=== PATIENT | female | born 1945 | race Caucasian/White ===

== ENCOUNTER 2017-12-06 17:07 | Emergency (ER) | payer MEDICARE, OTHER ==
[2017-12-06] MEDS ORDERED: ONDANSETRON HCL INJ/PF 4 MG/2 ML SDV IV ONE (18:19)
[2017-12-06] MEDS ORDERED: FENTANYL CITRATE INJ/PF 100 MCG/2 ML AMPUL IV ONE ×3 (18:20→22:43)
--- NOTE | 2017-12-06 18:20 | ER Document Report ---
ED Medical Screen (RME) - General Chief Complaint: Vomiting/Diarrhea Stated Complaint: VOMITING,DIARRHEA Time Seen by Provider: 12/06/17 18:12 Mode of Arrival: Wheelchair Information source: Patient Notes: 72-year-old female presents with complaints of nausea vomiting diarrhea over past 4 days with decreased appetite I have greeted and performed a rapid initial assessment of this patient. A comprehensive ED assessment and evaluation of the patient, analysis of test results and completion of the medical decision making process will be conducted by additional ED providers. PHYSICAL EXAMINATION: GENERAL: Well-appearing, well-nourished and in no acute distress. HEAD: Atraumatic, normocephalic. EYES: Pupils equal round extraocular movements intact, conjunctiva are normal. ENT: Nares patent NECK: Normal range of motion LUNGS: No respiratory distress Musculoskeletal: Normal range of motion NEUROLOGICAL: Normal speech, normal gait. PSYCH: Normal mood, normal affect. SKIN: Warm, Dry, normal turgor, no rashes or lesions noted. TRAVEL OUTSIDE OF THE [place] IN LAST 30 DAYS: No - Related Data Allergies/Adverse Reactions: chlordiazepoxide HCl [From Librium] Allergy (Severe, Verified 12/06/17 17:10) diazepam [From Valium] Allergy (Severe, Verified 12/06/17 17:10) manic, increased b/p NSAIDS (Non-Steroidal Anti-Inflamma [Nsaids] Allergy (Severe, Verified 12/06/17 17:10) ulcers Past Medical History - Social History Frequency of alcohol use: None Drug Abuse: None - Past Medical History Cardiac Medical History: Reports: Hx Hypercholesterolemia, Hx Hypertension Denies: Hx Coronary Artery Disease, Hx Heart Attack Pulmonary Medical History: Reports: Hx Asthma Denies: Hx Bronchitis, Hx COPD, Hx Pneumonia Neurological Medical History: Denies: Hx Cerebrovascular Accident, Hx Seizures Renal/ Medical History: Reports: Hx Kidney Stones. 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
--- NOTE | 2017-12-06 19:06 | ER Document Report ---
ED General - General Chief Complaint: Vomiting/Diarrhea Stated Complaint: VOMITING,DIARRHEA Time Seen by Provider: 12/06/17 18:12 Mode of Arrival: Wheelchair Information source: Patient, Relative Notes: 72-year-old female with a history of diverticulitis, chronic back pain, MS presents with complaint of 2 days of diarrhea and abdominal pain. Patient describes the abdominal pain as cramping, constant and diffusely located. She states that she has had multiple episodes of nonbloody diarrhea. Has had associated nausea with multiple episodes of vomiting. She denies any sick contacts, recent antibiotic use or recent travel. She does admit to prior similar symptoms. TRAVEL OUTSIDE OF THE [place] IN LAST 30 DAYS: No - HPI Onset: Yesterday Onset/Duration: Gradual Quality of pain: Cramping Severity: Moderate Pain Level: 2 Associated symptoms: Diarrhea, Nausea, Vomiting. denies: Fever Exacerbated by: Denies Relieved by: Denies Similar symptoms previously: Yes - 3 years prior to arrival Recently seen / treated by doctor: No - Related Data Allergies/Adverse Reactions: chlordiazepoxide HCl [From Librium] Allergy (Severe, Verified 12/06/17 17:10) diazepam [From Valium] Allergy (Severe, Verified 12/06/17 17:10) manic, increased b/p NSAIDS (Non-Steroidal Anti-Inflamma [Nsaids] Allergy (Severe, Verified 12/06/17 17:10) ulcers Past Medical History - General Information source: Patient - Social History Smoking Status: Former Smoker Frequency of alcohol use: None Drug Abuse: None Family History: Reviewed & Not Pertinent Patient has suicidal ideation: No Patient has homicidal ideation: No - Past Medical History Cardiac Medical History: Reports: Hx Hypercholesterolemia, Hx Hypertension Denies: Hx Coronary Artery Disease, Hx Heart Attack Pulmonary Medical History: Reports: Hx Asthma Denies: Hx Bronchitis, Hx COPD, Hx Pneumonia Neurological Medical History: Denies: Hx Cerebrovascular Accident, Hx Seizures Renal/ Medical History: Reports: Hx Kidney Stones. 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 denies: Blood streaked bowels, Black stools Physical Exam - Vital signs Vitals: Temp Pulse Resp BP Pulse Ox 98.4 F 70 16 161/89 H 97 12/06/17 17:15 12/06/17 17:15 12/06/17 17:15 12/06/17 17:15 12/06/17 17:15 - Abdominal Inspection: Normal Distension: No distension Bowel sounds: Hyperactive Tenderness: Tender. No: McBurney's point, Flores's sign - Tender to palpation in epigastric area. Organomegaly: No organomegaly Course - Re-evaluation Re-evalutation: 12/07/17 19:29 72-year-old female with history of diverticulitis presents with complaint of 2 days of abdominal pain with associated diarrhea and vomiting. Arrival vitals reviewed and within normal limits. Patient does not appear toxic or dehydrated. She does appear very uncomfortable. Patient received IV fluids, Zofran and fentanyl during her ED course. CT of the abdomen was obtained and showed no acute changes. She was offered to the patient who initially agreed but then later changed her mind. She was discharged home in stable condition with prescription for Hay and Zofran. - Vital Signs Vital signs: Temp Pulse Resp BP Pulse Ox 98.6 F 67 20 166/84 H 98 12/07/17 00:58 12/07/17 00:58 12/07/17 00:58 12/07/17 00:58 12/07/17 00:58 - Laboratory Result Diagrams: 12/06/17 19:00 12/06/17 19:00 Laboratory results interpreted by me: 12/06/17 12/06/17 19:00 19:00 WBC 10.6 H RDW 15.1 H Seg Neutrophils % 78.3 H Absolute Neutrophils 8.3 H Sodium 132.5 L Chloride 94 L Direct Bilirubin 0.5 H Discharge - Discharge Clinical Impression: Abdominal pain Qualifiers: Abdominal location: generalized Qualified Code(s): R10.84 - Generalized abdominal pain Nausea & vomiting Qualifiers: Vomiting type: unspecified Vomiting Intractability: non-intractable Qualified Code(s): R11.2 - Nausea with vomiting, unspecified Condition: Good Disposition: HOME, SELF-CARE Instructions: Abdominal Pain ([facility]), Antinausea Medication ([facility]), Vomiting ([facility]) Prescriptions: Hydrocodone/Acetaminophen [Hay 5-325 mg Tablet] 1 tab PO Q6H PRN #10 tablet PRN Reason: Ondansetron [Zofran Odt 4 mg Tablet] 1 - 2 tab PO Q4H PRN #15 tab.rapdis PRN Reason: For Nausea/Vomiting Referrals: JESSICA SINGH FNP [Primary Care Provider] - Follow up as needed
[2017-12-06] MEDS: NORMAL SALINE 1000 ML 1,000 ML IV PRN ×2 (19:11→21:38)
[2017-12-06 19:18] LABS: ABSOLUTE EOSINOPHILS # (AUTO) 0.1 10^3/uL (0.0-0.6); ABSOLUTE LYMPHOCYTES (AUTO) 1.7 10^3/uL (0.5-4.7); ABSOLUTE MONOCYTES (AUTO) 0.6 10^3/uL (0.1-1.4); ABSOLUTE NEUT (AUTO) 8.3 10^3/uL (1.7-8.2); BASOPHILS % (AUTO) 0.3 % (0-2); EOSINOPHILS % (AUTO) 0.6 % (0-6); HEMATOCRIT 44.6 % (36.0-47.0); HEMOGLOBIN 15.3 g/dL (12.0-15.5); LYMPHOCYTES % (AUTO) 15.6 % (13-45); MEAN CORPUSCULAR HGB CONC 34.3 g/dL (32.0-36.0); MEAN CORPUSCULAR VOLUME 88 fl (80-97); MONOCYTES % (AUTO) 5.2 % (3-13); PLATELET COUNT 234 10^3/uL (150-450); RED BLOOD COUNT 5.09 10^6/uL (3.72-5.28); RED CELL DISTRIBUTION WIDTH 15.1 % (11.5-14.0); SEGMENTED NEUTROPHILS % (AUTO) 78.3 % (42-78); TOTAL CELLS COUNTED % (AUTO) 100 %; WHITE BLOOD COUNT 10.6 10^3/uL (4.0-10.5)
[2017-12-06 19:25] LABS: ALANINE AMINOTRANSFERASE 34 U/L (9-52); ALKALINE PHOSPHATASE 105 U/L (38-126); ANION GAP 13 (5-19); ASPARTATE AMINO TRANSFERASE 31 U/L (14-36); BILIRUBIN,DIRECT 0.5 mg/dL (0.0-0.4); BILIRUBIN,TOTAL 0.9 mg/dL (0.2-1.3); BLOOD UREA NITROGEN 11 mg/dL (7-20); CALCIUM 9.9 mg/dL (8.4-10.2); CARBON DIOXIDE 26 mmol/L (22-30); CHLORIDE 94 mmol/L (98-107); GLUCOSE 109 mg/dL (75-110); LIPASE 153.2 U/L (23-300); POTASSIUM 3.7 mmol/L (3.6-5.0); SODIUM 132.5 mmol/L (137-145)
[2017-12-06] MEDS ORDERED: METOCLOPRAMIDE HCL INJ/PF 10 MG/2 ML SDV IV ONE (21:02)
--- NOTE | 2017-12-06 22:12 | RADIOLOGY REPORT (SQ) ---
EXAM DESCRIPTION: CT ABD/PELVIS WITH IV ORAL COMPLETED DATE/TIME: 12/06/2017 9:29 pm REASON FOR STUDY: abd pain ,hx of obstructions COMPARISON: 02/27/2016 TECHNIQUE: CT scan of the abdomen and pelvis performed using helical scanning technique with dynamic intravenous contrast injection. No oral contrast. Images reviewed with lung, soft tissue, and bone windows. Reconstructed coronal and sagittal MPR images reviewed. Delayed images for evaluation of the urinary system also acquired. All images stored on PACS. All CT scanners at this facility use dose modulation, iterative reconstruction, and/or weight based d osing when appropriate to reduce radiation dose to as low as reasonably achievable (ALARA). [facility]: Dose Right [facility]: CareDose [facility]: Dose Right [facility]: Teradose 4D [facility]: [employer] CONTRAST TYPE AND DOSE: contrast/concentration: Isovue 370.00 mg/ml; Total Contrast Delivered: 100.0 ml; Total Saline Delivered: 45.0 ml RENAL FUNCTION: GFR > 60. RADIATION DOSE: CT Rad equipment meets quality standard of care and radiation dose reduction techniq ues were employed. CTDIvol: 24.3 - 25.6 mGy. DLP: 2401 mGy-cm.. LIMITATIONS: None. FINDINGS: LOWER CHEST: No acute findings. LIVER: Normal size. No masses. No dilated ducts. SPLEEN: Normal size. No focal lesions. PANCREAS: Mild fatty replacement. No masses. Similar small calcifications and distal body duct dila tation. No adjacent inflammation or peripancreatic fluid collections. GALLBLADDER: No identified stones by CT criteria. No inflammatory changes to suggest cholecystitis. ADRENAL GLANDS: No significant masses or asymmetry. RIGHT KIDNEY AND URETER: No solid masses. No significant calcifications. No hydronephrosis or hyd roureter. LEFT KIDNEY AND URETER: No solid masses. No significant calcifications. No hydronephrosis or hydr oureter. AORTA AND VESSELS: No aneurysm. No dissection. Renal arteries, SMA, celiac without stenosis. RETROPERITONEUM: No retroperitoneal adenopathy, hemorrhage or masses. BOWEL AND PERITONEAL CAVITY: Mildly dilated proximal jejunum, similar to the previous study, nonspeci fic. No definite obstruction or transition points. Remainder of the bowel is normal caliber. No fo carmen inflammatory changes or free fluid. Diverticulosis. APPENDIX: Surgically absent. PELVIS: No mass. No free fluid. Normal bladder. ABDOMINAL WALL: No masses. No hernias. BONES: No acute findings. OTHER: No other significant finding. IMPRESSION: Mildly dilated proximal jejunum, similar to the previous study, nonspecific. No definit e obstruction or transition points. Remainder of the bowel is normal caliber. No focal inflammatory changes or free fluid. TECHNICAL DOCUMENTATION: JOB ID: [id number] Quality ID # [id number]: Final reports with documentation of one or more dose reduction techniques (e.g., Au tomated exposure control, adjustment of the mA and/or kV according to patient size, use of iterative reconstruction technique) 2010 [employer]- All Rights Reserved Reading location - IP/workstation name: [email or web address]
[2017-12-07 00:59] VITALS: BP 166/84
== END 2017-12-07 01:03 | disposition home or self-care (01) ==
LOC: ER 17:07 → UNDOADMOB 23:23 → EH 23:23 → ER 12-07 01:03
DX: R10.84 Generalized abdominal pain (principal); R11.2 Nausea with vomiting, unspecified; R19.7 Diarrhea, unspecified; R53.1 Weakness; I10 Essential (primary) hypertension; J45.909 Unspecified asthma, uncomplicated; Z87.442 Personal history of urinary calculi; Z87.19 Personal history of other diseases of the digestive system; Z87.42 Personal history of other diseases of the female genital tract; Z87.891 Personal history of nicotine dependence; Z88.8 Allergy status to other drugs, medicaments and biological substances
CPT/HCPCS: 96376; 99284; 96361; 96374; 96375; 36415; 83605; 83690; 85025; 80053; 74177; J3010; J2765; J2405; J7030

== ENCOUNTER 2018-02-15 04:38 | Inpatient (IN) | payer MEDICARE, OTHER ==
[2018-02-15] MEDS ORDERED: ONDANSETRON HCL INJ/PF 4 MG/2 ML SDV IV ONE (05:02)
[2018-02-15] MEDS ORDERED: FENTANYL CITRATE INJ/PF 100 MCG/2 ML AMPUL IV ONE (05:02)
[2018-02-15] MEDS ORDERED: NORMAL SALINE 1000 ML 1,000 ML IV ONE ×3 (05:03→14:00)
--- NOTE | 2018-02-15 05:05 | ER Document Report ---
ED Medical Screen (RME) - General Chief Complaint: Nausea/Vomiting/Diarrhea Stated Complaint: NAUSEA Time Seen by Provider: 02/15/18 04:54 Notes: 72-year-old female comes emergency department for chief complaint of about 2 days of nausea vomiting and diarrhea. Patient denies fever or chills. She denies hematemesis or hematochezia. She does admit to stopping her 24 mg a day of Dilaudid about 2 days ago. She is supposed to be getting switched over to a milder opiate but she has not started taking the other opiate yet because she did not feel good. She only reports remote abdominal surgeries including ovarian cyst removal and bladder tack. TRAVEL OUTSIDE OF THE [place] IN LAST 30 DAYS: No - Related Data Allergies/Adverse Reactions: chlordiazepoxide HCl [From Librium] Allergy (Severe, Verified 12/06/17 17:10) diazepam [From Valium] Allergy (Severe, Verified 12/06/17 17:10) manic, increased b/p NSAIDS (Non-Steroidal Anti-Inflamma [Nsaids] Allergy (Severe, Verified 12/06/17 17:10) ulcers Past Medical History - Past Medical History Cardiac Medical History: Reports: Hx Hypercholesterolemia, Hx Hypertension Denies: Hx Coronary Artery Disease, Hx Heart Attack Pulmonary Medical History: Reports: Hx Asthma Denies: Hx Bronchitis, Hx COPD, Hx Pneumonia Neurological Medical History: Denies: Hx Cerebrovascular Accident, Hx Seizures Renal/ Medical History: Reports: Hx Kidney Stones. 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 Most likely opiate withdrawal, however based on symptoms reported, age, generalized abdominal tenderness workup will be performed. - Vital Signs Vital signs: Temp Pulse Resp BP Pulse Ox 98 F 70 20 148/87 H 97 02/15/18 04:45 02/15/18 04:45 02/15/18 04:45 02/15/18 04:45 02/15/18 04:45 - Laboratory Result Diagrams: 02/15/18 05:00 02/15/18 05:00
[2018-02-15 05:17] LABS: ABSOLUTE LYMPHOCYTES (AUTO) 1.2 10^3/uL (0.5-4.7); ABSOLUTE MONOCYTES (AUTO) 0.4 10^3/uL (0.1-1.4); ABSOLUTE NEUT (AUTO) 8.6 10^3/uL (1.7-8.2); BASOPHILS % (AUTO) 0.2 % (0-2); EOSINOPHILS % (AUTO) 0.3 % (0-6); HEMATOCRIT 44.4 % (36.0-47.0); HEMOGLOBIN 15.3 g/dL (12.0-15.5); MEAN CORPUSCULAR HEMOGLOBIN 30.4 pg (27.0-33.4); MEAN CORPUSCULAR HGB CONC 34.5 g/dL (32.0-36.0); MEAN CORPUSCULAR VOLUME 88 fl (80-97); PLATELET COUNT 226 10^3/uL (150-450); RED BLOOD COUNT 5.05 10^6/uL (3.72-5.28); RED CELL DISTRIBUTION WIDTH 14.8 % (11.5-14.0); SEGMENTED NEUTROPHILS % (AUTO) 83.5 % (42-78); TOTAL CELLS COUNTED % (AUTO) 100 %; WHITE BLOOD COUNT 10.3 10^3/uL (4.0-10.5)
[2018-02-15 05:28] LABS: ALANINE AMINOTRANSFERASE 31 U/L (9-52); ALBUMIN 4.6 g/dL (3.5-5.0); ALKALINE PHOSPHATASE 95 U/L (38-126); ANION GAP 17 (5-19); ASPARTATE AMINO TRANSFERASE 28 U/L (14-36); BILIRUBIN,DIRECT 0.3 mg/dL (0.0-0.4); BILIRUBIN,TOTAL 0.7 mg/dL (0.2-1.3); BLOOD UREA NITROGEN 12 mg/dL (7-20); CALCIUM 10.2 mg/dL (8.4-10.2); CARBON DIOXIDE 28 mmol/L (22-30); CHLORIDE 95 mmol/L (98-107); GLUCOSE 157 mg/dL (75-110); LIPASE 96.9 U/L (23-300); POTASSIUM 3.4 mmol/L (3.6-5.0); SODIUM 140.3 mmol/L (137-145); TOTAL PROTEIN 7.4 g/dL (6.3-8.2)
[2018-02-15] MEDS ORDERED: LISINOPRIL 10 MG TABLET PO ONE (07:29)
[2018-02-15] MEDS ORDERED: METOCLOPRAMIDE HCL INJ/PF 10 MG/2 ML SDV IV ONE (07:29)
--- NOTE | 2018-02-15 07:29 | ER Document Report ---
ED General - General Chief Complaint: Nausea/Vomiting/Diarrhea Stated Complaint: NAUSEA Time Seen by Provider: 02/15/18 04:54 Mode of Arrival: Ambulatory Information source: Patient, Relative Notes: 72-year-old female presents with complaints of nausea vomiting diarrhea of approximately 2-3 day duration. Denies any fevers or chills admits to abdominal cramping. Patient had similar episode a few months ago, notes symptoms improved and then returned TRAVEL OUTSIDE OF THE [place] IN LAST 30 DAYS: No - HPI Onset: Other Onset/Duration: Persistent, Waxing and waning Quality of pain: Cramping Severity: Mild Pain Level: 1 Associated symptoms: Diarrhea, Nausea, Vomiting Exacerbated by: Denies Relieved by: Denies Similar symptoms previously: Yes Recently seen / treated by doctor: No - Related Data Allergies/Adverse Reactions: chlordiazepoxide HCl [From Librium] Allergy (Severe, Verified 12/06/17 17:10) diazepam [From Valium] Allergy (Severe, Verified 12/06/17 17:10) manic, increased b/p NSAIDS (Non-Steroidal Anti-Inflamma [Nsaids] Allergy (Severe, Verified 12/06/17 17:10) ulcers Past Medical History - Social History Smoking Status: Never Smoker Cigarette use (# per day): No Chew tobacco use (# tins/day): No Smoking Education Provided: No Frequency of alcohol use: None Drug Abuse: None Family History: Reviewed & Not Pertinent Patient has suicidal ideation: No Patient has homicidal ideation: No - Past Medical History Cardiac Medical History: Reports: Hx Hypercholesterolemia, Hx Hypertension Denies: Hx Coronary Artery Disease, Hx Heart Attack Pulmonary Medical History: Reports: Hx Asthma Denies: Hx Bronchitis, Hx COPD, Hx Pneumonia Neurological Medical History: Denies: Hx Cerebrovascular Accident, Hx Seizures Renal/ Medical History: Reports: Hx Kidney Stones. 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 Denies recent illness. EENT: Denies eye, ear, throat, or mouth pain or symptoms. Denies nasal or sinus congestion or discharge. Denies throat, tongue, or mouth swelling or difficulty swallowing. CARDIOVASCULAR: Denies chest pain. Denies palpitations or racing or irregular heart beat. Denies ankle edema. RESPIRATORY: Denies cough, cold, or chest congestion. Denies shortness of breath, difficulty breathing, or wheezing. GASTROINTESTINAL: Admits to nausea vomiting diarrhea GENITOURINARY: Denies difficulty urinating, painful urination, burning, frequency, blood in urine, or discharge. FEMALE GENITOURINARY: Denies vaginal bleeding, heavy or abnormal periods, irregular periods. Denies vaginal discharge or odor. MUSCULOSKELETAL: Denies back or neck pain or stiffness. Denies joint pain or swelling. SKIN: Denies rash, lesions or sores. HEMATOLOGIC : Denies easy bruising or bleeding. LYMPHATIC: Denies swollen, enlarged glands. NEUROLOGICAL: Denies confusion or altered mental status. Denies passing out or loss of consciousness. Denies dizziness or lightheadedness. Denies headache. Denies weakness or paralysis or loss of use of either side. Denies problems with gait or speech. Denies sensory loss, numbness, or tingling. Denies seizures. PSYCHIATRIC: Denies anxiety or stress. Denies depression, suicidal ideation, or homicidal ideation. ALL OTHER SYSTEMS REVIEWED AND NEGATIVE. PHYSICAL EXAMINATION: GENERAL: Well-appearing, well-nourished and in no acute distress. HEAD: Atraumatic, normocephalic. EYES: Pupils equal round and reactive to light, extraocular movements intact, conjunctiva are normal. ENT: Nares patent, oropharynx clear without exudates. Moist mucous membranes. NECK: Normal range of motion, supple without lymphadenopathy LUNGS: Breath sounds clear to auscultation bilaterally and equal. No wheezes rales or rhonchi. HEART: Regular rate and rhythm without murmurs ABDOMEN: Soft, abdominal cramping generalized Female : deferred Musculoskeletal: Normal range of motion, no pitting or edema. No cyanosis. NEUROLOGICAL: Cranial nerves grossly intact. Normal speech, normal gait. Normal sensory, motor exams PSYCH: Normal mood, normal affect. SKIN: Warm, Dry, normal turgor, no rashes or lesions noted. Dictation was performed using [employer] voice recognition software Physical Exam - Vital signs Vitals: Temp Pulse Resp BP Pulse Ox 98 F 70 20 148/87 H 97 02/15/18 04:45 02/15/18 04:45 02/15/18 04:45 02/15/18 04:45 02/15/18 04:45 Course - Re-evaluation Re-evalutation: 02/15/18 08:30 Patient's blood work notes no significant abnormality, she is noted to have some nausea still I will treat her with Phenergan Bentyl 02/15/18 12:08 Patient has been washing the emergency department for approximately 9 hours, she has been given Reglan Zofran and Phenergan [address] and lab work, I did attempt oral hydration and the patient drank half a cup of water before she threw it up. Therefore I will admit her for intractable nausea vomiting diarrhea - Vital Signs Vital signs: Temp Pulse Resp BP Pulse Ox 98.6 F 72 11 L 165/72 H 98 02/15/18 07:37 02/15/18 07:37 02/15/18 10:07 02/15/18 09:01 02/15/18 10:07 - Laboratory Result Diagrams: 02/15/18 05:00 02/15/18 05:00 Laboratory results interpreted by me: 02/15/18 02/15/18 05:00 05:00 RDW 14.8 H Seg Neutrophils % 83.5 H Lymphocytes % 12.0 L Absolute Neutrophils 8.6 H Potassium 3.4 L Chloride 95 L Glucose 157 H - Diagnostic Test Radiology reviewed: Image reviewed - CT abdomen pelvis with IV contrast consistent with diverticulosis, Reports reviewed Discharge - Discharge Clinical Impression: Nausea & vomiting Qualifiers: Vomiting type: unspecified Vomiting Intractability: intractable Qualified Code( s): R11.2 - Nausea with vomiting, unspecified Diarrhea Qualifiers: Diarrhea type: unspecified type Qualified Code(s): R19.7 - Diarrhea, unspecified Condition: Stable Disposition: ADMITTED INPATIENT Admitting Provider: Hospitalist Unit Admitted: Medical Floor Referrals: JESSICA SINGH FNP [Primary Care Provider] - Follow up as needed
--- NOTE | 2018-02-15 07:42 | EKG REPORT ---
SEVERITY:- ABNORMAL ECG - SINUS RHYTHM SHORT AR INTERVAL, ACCELERATED AV CONDUCTION RIGHT BUNDLE BRANCH BLOCK AND LAFB : Confirmed by: Moreno Segundo MD 15-Feb-2018 07:42:02
[2018-02-15] MEDS ORDERED: PROMETHAZINE HCL INJ 25 MG/1 ML VIAL IM ONE (08:29)
--- NOTE | 2018-02-15 10:32 | RADIOLOGY REPORT (SQ) ---
EXAM DESCRIPTION: CT ABD/PELVIS WITH IV ONLY COMPLETED DATE/TIME: 02/15/2018 10:13 am REASON FOR STUDY: nausea vomiting diarrhea COMPARISON: 12/06/2017. TECHNIQUE: CT scan of the abdomen and pelvis performed using helical scanning technique with dynamic intravenous contrast injection. No oral contrast. Images reviewed with lung, soft tissue, and bone windows. Reconstructed coronal and sagittal MPR images reviewed. Delayed images for evaluation of the urinary system also acquired. All images stored on PACS. All CT scanners at this facility use dose modulation, iterative reconstruction, and/or weight based d osing when appropriate to reduce radiation dose to as low as reasonably achievable (ALARA). [facility]: Dose Right [facility]: CareDose [facility]: Dose Right [facility]: Teradose 4D [facility]: [email or web address] CONTRAST TYPE AND DOSE: 100 cc Isovue 370- low osmolar. RENAL FUNCTION: GFR > 60. RADIATION DOSE: . LIMITATIONS: Bilateral hip arthroplasty. Lower lumbar fusion. FINDINGS: LOWER CHEST: No significant findings. No nodules or infiltrates. LIVER: Normal size. No masses. No dilated ducts. SPLEEN: Normal size. No focal lesions. PANCREAS: No masses. No significant calcifications. No adjacent inflammation or peripancreatic fluid collections. Pancreatic duct not dilated. GALLBLADDER: No identified stones by CT criteria. No inflammatory changes to suggest cholecystitis. ADRENAL GLANDS: No significant masses or asymmetry. RIGHT KIDNEY AND URETER: No solid masses. No significant calcifications. No hydronephrosis or hyd roureter. LEFT KIDNEY AND URETER: No solid masses. No significant calcifications. No hydronephrosis or hydr oureter. AORTA AND VESSELS: No aneurysm. RETROPERITONEUM: No retroperitoneal adenopathy, hemorrhage or masses. BOWEL AND PERITONEAL CAVITY: Sigmoid diverticulosis. Chronic mild dilatation of the proximal jejunum . No masses or inflammatory changes. No free fluid or peritoneal masses. APPENDIX: Surgically absent. PELVIS: No mass. No free fluid. Normal bladder. ABDOMINAL WALL: No masses. No hernias. BONES: No acute findings. Extensive lower lumbar surgery. OTHER: No other significant finding. IMPRESSION: Sigmoid diverticulosis. No acute findings. TECHNICAL DOCUMENTATION: JOB ID: [id number] Quality ID # [id number]: Final reports with documentation of one or more dose reduction techniques (e.g., Au tomated exposure control, adjustment of the mA and/or kV according to patient size, use of iterative reconstruction technique) 2010 [employer]- All Rights Reserved Reading location - IP/workstation name: [email or web address]
[2018-02-15] MEDS ORDERED: NORMAL SALINE 1000 ML 1,000 ML IV PRN (13:17)
[2018-02-15] MEDS ORDERED: IPRATROPIUM/ALBUTEROL 0.5-2.5 MG/3 ML AMPUL NEB PRN (13:48)
[2018-02-15] MEDS ORDERED: DEXTROSE 5%-NORMAL SALINE 1,000 ML IV PRN (13:48)
[2018-02-15] MEDS ORDERED: HYDROMORPHONE HCL INJ/PF 2 MG/ML AMPULE IV PRN (13:54)
--- NOTE | 2018-02-15 14:07 | PDOC H&P ---
History of Present Illness Admission Date/PCP: RILEY FREEMAN February 15, 2018 Patient complains of: Nausea vomiting and diarrhea History of Present Illness: ALANNA JIMENEZ is a 72 year old female with past medical history of Hypertension Hyperlipidemia Multiple sclerosis Diverticulosis. Morbid obesity Chronic back pain, opiate dependent Surgical history: Hernia repair Hip surgery Outpatient medications: Lisinopril/HCTZ 20/25 mg daily Atorvastatin 40mg daily Amitiza 24 mcg daily Potassium chloride Multivitamin Voltaren gel prn Patient presented to the hospital on February 15 with a 3 day history of intractable nausea vomiting and diarrhea. 3 days ago both she and her ate a lobster sandwich from the [employer]. Her reports having had one episode of loose stools. No other sick contacts. The patient had been taking 16 mg of Dilaudid in the morning and 8 mg in the afternoon for her chronic back pain. She had been instructed by her pain management physician Dr. Escalona to stop the Dilaudid with plans to start her on Levorphanol. Her last dose of Dilaudid was 3 days ago. She has not been on any other opiates. She denies any fevers or chills. No recent antibiotic use. No blood in her stools. Has been unable to keep anything down. Past Medical History Cardiac Medical History: Reports: Hyperlipidema, Hypertension Denies: Coronary Artery Disease, Myocardial Infarction Pulmonary Medical History: Reports: Asthma Denies: Bronchitis, Chronic Obstructive Pulmonary Disease (COPD), Pneumonia Neurological Medical History: Denies: Seizures GI Medical History: Reports: Diverticulitis Musculoskeltal Medical History: Reports: Arthritis Psychiatric Medical History: Reports: Depression Hematology: Denies: Anemia Past Surgical History Past Surgical History: Reports: Orthopedic Surgery - BILAT HIP REPLACEMENTS, L2- L4 Social History Information Source: Patient Smoking Status: Never Smoker Frequency of Alcohol Use: None Hx Recreational Drug Use: No Drugs: None Hx Prescription Drug Abuse: No Family History Family History: Hypertension Parental Family History Reviewed: Yes Children Family History Reviewed: Yes Sibling(s) Family History Reviewed.: Yes Medication/Allergy Home Medications: Atorvastatin Calcium [Lipitor 20 mg Tablet] 40 mg PO QHS 02/28/14 Hydromorphone HCl [Dilaudid 2 mg Tablet] 30 mg PO TID PRN 02/27/16 Lisinopril 20 mg PO DAILY #30 tablet 03/02/16 Sennosides/Docusate 8.6-50 mg [Senna Plus Tablet] 2 each PO BID #60 tablet 03/02 Lubiprostone [Amitiza 24 Mcg Capsule] 1 tab PO DAILY 12/06/17 Multivitamin [Multivitamins] 1 each PO DAILY 12/06/17 Hydrocodone/Acetaminophen [[place] 5-325 mg Tablet] 1 tab PO Q6H PRN #10 tablet Ondansetron [Zofran Odt 4 mg Tablet] 1 - 2 tab PO Q4H PRN #15 tab.rapdis Allergies/Adverse Reactions: chlordiazepoxide HCl [From Librium] Allergy (Severe, Verified 12/06/17 17:10) diazepam [From Valium] Allergy (Severe, Verified 12/06/17 17:10) manic, increased b/p NSAIDS (Non-Steroidal Anti-Inflamma [Nsaids] Allergy (Severe, Verified 12/06/17 17:10) ulcers Review of Systems Constitutional: ABSENT: fever(s) Eyes: ABSENT: visual disturbances Nose, Mouth, and Throat: ABSENT: sore throat, vertigo Cardiovascular: ABSENT: edema Respiratory: ABSENT: dyspnea Gastrointestinal: PRESENT: abdominal pain, diarrhea, nausea, vomiting. ABSENT: hematochezia Genitourinary: PRESENT: difficulty urinating. ABSENT: hematuria Musculoskeletal: ABSENT: joint swelling Integumentary: ABSENT: rash Neurological: ABSENT: focal weakness Endocrine: ABSENT: heat intolerance Hematologic/Lymphatic: ABSENT: easy bruising Allergic/Immunologic: ABSENT: seasonal rhinorrhea Physical Exam Vital Signs: Temp Pulse Resp BP Pulse Ox 98.6 F 72 20 158/80 H 98 02/15/18 07:37 02/15/18 07:37 02/15/18 12:01 02/15/18 12:01 02/15/18 12:01 Intake & Output 02/14/18 02/15/18 02/16/18 06:59 06:59 06:59 Weight 76.4 kg General appearance: PRESENT: no acute distress Head exam: PRESENT: normocephalic Eye exam: ABSENT: scleral icterus Ear exam: PRESENT: normal external ear exam Mouth exam: PRESENT: moist Teeth exam: PRESENT: edentulous Neck exam: ABSENT: tenderness Respiratory exam: PRESENT: clear to auscultation sara, symmetrical, unlabored. ABSENT: rhonchi Cardiovascular exam: PRESENT: RRR GI/Abdominal exam: PRESENT: normal bowel sounds, tenderness Rectal exam: PRESENT: deferred Extremities exam: ABSENT: pedal edema Neurological exam: PRESENT: alert, awake, oriented to person, oriented to place , oriented to time, oriented to situation Skin exam: ABSENT: rash Results Laboratory Results: 02/15/18 05:00 02/15/18 05:00 02/15/18 02/15/18 05:00 05:00 WBC 10.3 RBC 5.05 Hgb 15.3 Hct 44.4 MCV 88 MCH 30.4 MCHC 34.5 RDW 14.8 H Plt Count 226 Seg Neutrophils % 83.5 H Lymphocytes % 12.0 L Monocytes % 4.0 Eosinophils % 0.3 Basophils % 0.2 Absolute Neutrophils 8.6 H Absolute Lymphocytes 1.2 Absolute Monocytes 0.4 Absolute Eosinophils 0.0 Absolute Basophils 0.0 Sodium 140.3 Potassium 3.4 L Chloride 95 L Carbon Dioxide 28 Anion Gap 17 BUN 12 Creatinine 0.79 Est GFR ( Amer) > 60 Est GFR (Non-Af Amer) > 60 Glucose 157 H Calcium 10.2 Total Bilirubin 0.7 AST 28 ALT 31 Alkaline Phosphatase 95 Total Protein 7.4 Albumin 4.6 Lipase 96.9 Impressions: Abdomen/Pelvis CT 02/15/18 08:50 IMPRESSION: Sigmoid diverticulosis. No acute findings. Assessment & Plan - Diagnosis (1) Nausea vomiting and diarrhea Is this a current diagnosis for this admission?: Yes Plan: Could be secondary to acute viral gastroenteritis versus foodborne illness versus narcotic withdrawal. Continue IV fluids antiemetics and symptomatic management. Check stool for C. difficile ova parasite and WBC. (2) Hypertension Is this a current diagnosis for this admission?: Yes Plan: Monitor. Hold HCTZ and lisinopril. (3) Chronic pain Is this a current diagnosis for this admission?: Yes Plan: Dilaudid as needed. (4) Opiate dependence Is this a current diagnosis for this admission?: Yes Plan: As above. (5) Hypokalemia Is this a current diagnosis for this admission?: Yes Plan: Replete and monitor. - Time Time Spent: Greater than 70 Minutes - Inpatient Certification Medical Necessity: Need For IV Fluids, Risk of Complication if Not Cared For in Hospital
[2018-02-15] MEDS ORDERED: POTASSIUM CHLORIDE 10 MEQ TABLET.SA PO ONE (15:00)
[2018-02-15] MEDS: ONDANSETRON HCL INJ/PF 4 MG/2 ML SDV IV PRN (15:20)
[2018-02-15] MEDS ORDERED: DEXTROSE 5%-NORMAL SALINE 1,000 ML with POTASSIUM CHLORIDE 40 MEQ IV PRN ×2 (16:58)
[2018-02-15] MEDS ORDERED: LANSOPRAZOLE 15 MG TAB.RAP.DR PO SCH (17:00)
[2018-02-15 17:54] LABS: APPEARANCE,URINE SLIGHTLY-CLOUDY; BILIRUBIN,URINE NEGATIVE (NEGATIVE); COLOR,URINE YELLOW; GLUCOSE, URINE NEGATIVE (NEGATIVE); KETONES,URINE NEGATIVE (NEGATIVE); LEUKOCYTE ESTERASE,URINE LARGE (NEGATIVE); NITRITE,URINE NEGATIVE (NEGATIVE); PROTEIN,URINE NEGATIVE (NEGATIVE); URINE SPECIFIC GRAVITY > 1.060; UROBILINOGEN,URINE NEGATIVE mg/dL (<2.0)
[2018-02-15] MEDS: PANTOPRAZOLE SODIUM 40 MG VIAL IV SCH (18:09)
[2018-02-15] MEDS: PROMETHAZINE HCL 25 MG TABLET PO PRN (18:10)
[2018-02-15] MEDS: ATORVASTATIN CALCIUM 20 MG TABLET PO SCH (22:58)
[2018-02-16] MEDS ORDERED: HYDRALAZINE HCL INJ/PF 20 MG/1 ML SDV IV ONE (02:00)
[2018-02-16] MEDS: POTASSI CL 40 MEQ/D5-1/2NS 1L 1000 ML IV PRN ×2 (03:10→15:25)
[2018-02-16] MEDS: ONDANSETRON 4 MG TAB.RAPDIS PO PRN (04:13)
[2018-02-16] MEDS: PANTOPRAZOLE SODIUM 40 MG VIAL IV SCH ×2 (06:30→17:59)
[2018-02-16 07:21] LABS: ANION GAP 9 (5-19); BLOOD UREA NITROGEN 12 mg/dL (7-20); CALCIUM 8.5 mg/dL (8.4-10.2); CARBON DIOXIDE 27 mmol/L (22-30); CHLORIDE 101 mmol/L (98-107); GLUCOSE 151 mg/dL (75-110); PHOSPHORUS 2.9 mg/dL (2.5-4.5); POTASSIUM 3.1 mmol/L (3.6-5.0); SODIUM 136.8 mmol/L (137-145)
[2018-02-16 07:30] LABS: HEMATOCRIT 37.9 % (36.0-47.0); MEAN CORPUSCULAR HEMOGLOBIN 29.8 pg (27.0-33.4); MEAN CORPUSCULAR HGB CONC 33.9 g/dL (32.0-36.0); MEAN CORPUSCULAR VOLUME 88 fl (80-97); PLATELET COUNT 166 10^3/uL (150-450); RED BLOOD COUNT 4.31 10^6/uL (3.72-5.28); RED CELL DISTRIBUTION WIDTH 15.1 % (11.5-14.0); WHITE BLOOD COUNT 8.5 10^3/uL (4.0-10.5)
[2018-02-16 07:32] LABS: HEMOGLOBIN 12.9 g/dL (12.0-15.5)
[2018-02-16] MEDS: ONDANSETRON HCL INJ/PF 4 MG/2 ML SDV IV PRN ×3 (08:49→16:28)
[2018-02-16] MEDS ORDERED: MORPHINE SULFATE 10 MG/ML INJ IV ONE (11:00)
[2018-02-16] MEDS: PROMETHAZINE HCL 25 MG TABLET PO PRN ×2 (11:27→15:24)
[2018-02-16] MEDS: MAGNESIUM SULFATE/D5W 1 GM/100 ML RTUPB IV SCH ×3 (11:33→14:00)
[2018-02-16] MEDS: MULTIVITAMIN TABLET PO SCH (11:34)
--- NOTE | 2018-02-16 13:11 | PDOC PROGRESS REPORT ---
Subjective Progress Note for:: 02/16/18 Subjective:: Continues to have nausea. Unable to tolerate anything by mouth. Had 2 episodes of watery stools today. Reason For Visit: INTRACTABLE NAUSEA,VOMITING Physical Exam Vital Signs: Temp Pulse Resp BP Pulse Ox 98.4 F 62 16 167/68 H 99 02/16/18 11:09 02/16/18 11:09 02/16/18 11:09 02/16/18 11:09 02/16/18 11:09 Intake & Output 02/15/18 02/16/18 02/17/18 06:59 06:59 06:59 Intake Total 595 Output Total 400 225 Balance 195 -225 General appearance: PRESENT: mild distress Head exam: PRESENT: normocephalic Ear exam: PRESENT: normal external ear exam Mouth exam: PRESENT: moist Neck exam: ABSENT: tracheal deviation Respiratory exam: PRESENT: symmetrical, unlabored Cardiovascular exam: PRESENT: RRR GI/Abdominal exam: PRESENT: normal bowel sounds, soft Rectal exam: PRESENT: deferred Gentrourinary exam: ABSENT: indwelling catheter Musculoskeletal exam: PRESENT: ambulatory Neurological exam: PRESENT: alert, awake, oriented to person, oriented to place , oriented to time Psychiatric exam: PRESENT: appropriate affect Skin exam: ABSENT: rash Results Laboratory Results: 02/16/18 06:26 02/16/18 06:26 02/15/18 02/15/18 02/16/18 17:25 17:25 06:26 WBC 8.5 RBC 4.31 Hgb 12.9 D Hct 37.9 MCV 88 MCH 29.8 MCHC 33.9 RDW 15.1 H Plt Count 166 Sodium Potassium Chloride Carbon Dioxide Anion Gap BUN Creatinine Est GFR ( Amer) Est GFR (Non-Af Amer) Glucose Calcium Phosphorus Magnesium TSH Urine Color YELLOW Urine Appearance SLIGHTLY-CLOUDY Urine pH 6.0 Ur Specific [place] > 1.060 Urine Protein NEGATIVE Urine Glucose (UA) NEGATIVE Urine Ketones NEGATIVE Urine Blood NEGATIVE Urine Nitrite NEGATIVE Ur Leukocyte Esterase LARGE H Urine WBC (Auto) 48 Urine RBC (Auto) 15 Stool for White Cells NO WBCs SEEN 02/16/18 02/16/18 06:26 06:26 WBC RBC Hgb Hct MCV MCH MCHC RDW Plt Count Sodium 136.8 L Potassium 3.1 L Chloride 101 Carbon Dioxide 27 Anion Gap 9 BUN 12 Creatinine 0.67 Est GFR ( Amer) > 60 Est GFR (Non-Af Amer) > 60 Glucose 151 H Calcium 8.5 Phosphorus 2.9 Magnesium 1.6 TSH 1.56 Urine Color Urine Appearance Urine pH Ur Specific [place] Urine Protein Urine Glucose (UA) Urine Ketones Urine Blood Urine Nitrite Ur Leukocyte Esterase Urine WBC (Auto) Urine RBC (Auto) Stool for White Cells 02/16/18 06:26 NT-Pro-B Natriuret Pep 320 Impressions: Abdomen/Pelvis CT 02/15/18 08:50 IMPRESSION: Sigmoid diverticulosis. No acute findings. Assessment & Plan - Diagnosis (1) Nausea vomiting and diarrhea Is this a current diagnosis for this admission?: Yes Plan: Likely secondary to acute viral gastroenteritis versus foodborne illness versus narcotic withdrawal. IV fluids antiemetics and symptomatic management. Stool negative for C. difficile and WBC. (2) Hypertension Is this a current diagnosis for this admission?: Yes Plan: Monitor. Hold HCTZ and lisinopril. IV Hydralazine prn (3) Chronic pain Is this a current diagnosis for this admission?: Yes Plan: Dilaudid as needed. (4) Opiate dependence Is this a current diagnosis for this admission?: Yes Plan: As above. (5) Hypokalemia Is this a current diagnosis for this admission?: Yes Plan: Replete and monitor. - Time Time Spent with patient: 35 or more minutes
[2018-02-16] MEDS ORDERED: POTASSI CL 20 MEQ/50 ML RIDER 20 MEQ/50 ML RTUPB IV SCH (14:00)
[2018-02-16] MEDS: POTASSIUM CHLORIDE 20 MEQ/50 ML RTU IV SCH ×3 (15:25→20:53)
[2018-02-16] MEDS: HYDRALAZINE HCL INJ/PF 20 MG/1 ML SDV IV PRN ×2 (16:04→23:50)
[2018-02-16] MEDS ORDERED: POTASSI CL 40 MEQ/D5-1/2NS 1L 40 MEQ/1,000 ML RTUINJ IV PRN (16:18)
[2018-02-16] MEDS ORDERED: (PENDING PHARMACY ID) (Lisinopril/Hydrochlorothiazide [Lisinopril-Hctz 20-25 Mg Tab] 1 EAC PO SCH (16:30)
[2018-02-16] MEDS ORDERED: HYDROCHLOROTHIAZIDE 12.5 MG CAPSULE PO ONE (17:15)
[2018-02-16] MEDS ORDERED: LISINOPRIL 10 MG TABLET PO ONE (17:15)
[2018-02-16] MEDS ORDERED: LISINOPRIL 10 MG TABLET ONE (17:46)
[2018-02-16] MEDS ORDERED: CALCIUM CARBONATE 500 MG TAB.CHEW PO PRN (22:06)
[2018-02-16] MEDS: ATORVASTATIN CALCIUM 20 MG TABLET PO SCH (22:10)
[2018-02-17] MEDS: HYDROMORPHONE HCL 2 MG TABLET PO PRN ×2 (00:03→09:42)
[2018-02-17] MEDS: PANTOPRAZOLE SODIUM 40 MG VIAL IV SCH ×2 (06:03→17:10)
[2018-02-17 07:28] LABS: ANION GAP 11 (5-19); BLOOD UREA NITROGEN 10 mg/dL (7-20); CALCIUM 8.7 mg/dL (8.4-10.2); CARBON DIOXIDE 22 mmol/L (22-30); CHLORIDE 103 mmol/L (98-107); GLUCOSE 107 mg/dL (75-110); POTASSIUM 4.2 mmol/L (3.6-5.0); SODIUM 136.4 mmol/L (137-145)
[2018-02-17] MEDS: ONDANSETRON HCL INJ/PF 4 MG/2 ML SDV IV PRN (07:44)
[2018-02-17] MEDS: MULTIVITAMIN TABLET PO SCH (09:07)
[2018-02-17] MEDS ORDERED: HYDROCHLOROTHIAZIDE 12.5 MG CAPSULE PO SCH (10:00)
[2018-02-17] MEDS ORDERED: LISINOPRIL 10 MG TABLET PO SCH (10:00)
[2018-02-17] MEDS: POTASSI CL 20 MEQ/D5-1/2NS 1L 1,000 ML IV PRN ×2 (10:45→21:55)
--- NOTE | 2018-02-17 11:52 | PDOC PROGRESS REPORT ---
Subjective Progress Note for:: 02/17/18 Subjective:: 72 yr old female on Dilaudid as outpatient p/w nausea vomiting diarrhea and abdominal pain when she abruptly stopped taking her opiates per outpatient MD suggestion. Stool C diff/ WBC negative. Symptoms likely secondary to opiate withdrawal. Restarted with slow taper off for resolution of symptoms. Reason For Visit: INTRACTABLE NAUSEA,VOMITING Physical Exam Vital Signs: Temp Pulse Resp BP Pulse Ox 98.5 F 61 16 98/44 L 100 02/17/18 10:52 02/17/18 10:52 02/17/18 10:52 02/17/18 10:52 02/17/18 10:52 Intake & Output 02/16/18 02/17/18 02/18/18 06:59 06:59 06:59 Intake Total 830 382 2008 Output Total 400 325 700 Balance 195 195 300 General appearance: PRESENT: mild distress Head exam: PRESENT: normocephalic Eye exam: PRESENT: PERRLA Mouth exam: PRESENT: moist Neck exam: ABSENT: tracheal deviation Respiratory exam: PRESENT: symmetrical, unlabored Cardiovascular exam: PRESENT: RRR GI/Abdominal exam: PRESENT: normal bowel sounds, soft Rectal exam: PRESENT: deferred Extremities exam: ABSENT: pedal edema Musculoskeletal exam: PRESENT: normal inspection Neurological exam: PRESENT: alert, awake, oriented to person, oriented to place , oriented to time, oriented to situation Psychiatric exam: PRESENT: appropriate affect Skin exam: ABSENT: rash Results Laboratory Results: 02/16/18 06:26 02/17/18 06:31 02/17/18 06:31 Sodium 136.4 L Potassium 4.2 Chloride 103 Carbon Dioxide 22 Anion Gap 11 BUN 10 Creatinine 0.75 Est GFR ( Amer) > 60 Est GFR (Non-Af Amer) > 60 Glucose 107 Calcium 8.7 Magnesium 2.3 02/15/18 17:25 Stool - Stool - Final 02/16/18 06:26 NT-Pro-B Natriuret Pep 320 Impressions: Abdomen/Pelvis CT 02/15/18 08:50 IMPRESSION: Sigmoid diverticulosis. No acute findings. Assessment & Plan - Diagnosis (1) Nausea vomiting and diarrhea Is this a current diagnosis for this admission?: Yes Plan: Likely secondary to acute viral gastroenteritis versus foodborne illness versus narcotic withdrawal. IV fluids antiemetics and symptomatic management. Stool negative for C. difficile and WBC. (2) Hypertension Is this a current diagnosis for this admission?: Yes Plan: Monitor. Continue lisinopril. IV Hydralazine prn (3) Chronic pain Is this a current diagnosis for this admission?: Yes Plan: Dilaudid as needed. (4) Opiate dependence Is this a current diagnosis for this admission?: Yes Plan: As above. (5) Hypokalemia Is this a current diagnosis for this admission?: Yes Plan: Replete and monitor. - Time Time Spent with patient: 35 or more minutes
[2018-02-17] MEDS: HYDROMORPHONE HCL 2 MG TABLET PO SCH ×2 (14:52→21:52)
[2018-02-17] MEDS: ATORVASTATIN CALCIUM 40 MG TABLET PO SCH (21:52)
[2018-02-18] MEDS: PANTOPRAZOLE SODIUM 40 MG VIAL IV SCH (05:28)
[2018-02-18 06:49] LABS: ANION GAP 12 (5-19); BLOOD UREA NITROGEN 9 mg/dL (7-20); CALCIUM 8.6 mg/dL (8.4-10.2); CARBON DIOXIDE 22 mmol/L (22-30); CHLORIDE 104 mmol/L (98-107); GLUCOSE 92 mg/dL (75-110); POTASSIUM 4.1 mmol/L (3.6-5.0); SODIUM 137.5 mmol/L (137-145)
[2018-02-18] MEDS: HYDROMORPHONE HCL 2 MG TABLET PO SCH ×3 (07:36→21:26)
[2018-02-18] MEDS: ONDANSETRON 4 MG TAB.RAPDIS PO PRN (09:01)
[2018-02-18] MEDS: POTASSI CL 20 MEQ/D5-1/2NS 1L 1,000 ML IV PRN (09:07)
--- NOTE | 2018-02-18 10:51 | PDOC PROGRESS REPORT ---
Subjective Progress Note for:: 02/18/18 Subjective:: 72 yr old female on Dilaudid for chronic back pain as outpatient p/w nausea vomiting diarrhea and abdominal pain when she abruptly stopped taking her opiates per outpatient MD suggestion. The plan was to start her on Levorphanol. Dilaudid was restarted at a lower dose. Still nauseated but less vomiting. Ok with liquid diet. Will continue to monitor and hopefully discharge in am once improved. Reason For Visit: INTRACTABLE NAUSEA,VOMITING Physical Exam Vital Signs: Temp Pulse Resp BP Pulse Ox 98.4 F 63 22 H 108/54 L 99 02/18/18 07:58 02/18/18 07:58 02/18/18 07:58 02/18/18 07:58 02/18/18 07:58 Intake & Output 02/17/18 02/18/18 02/19/18 06:59 06:59 06:59 Intake Total 520 1480 Output Total 325 3550 Balance 195 -2070 Weight 95.7 kg General appearance: PRESENT: no acute distress Head exam: PRESENT: normocephalic Eye exam: PRESENT: EOMI Ear exam: PRESENT: normal external ear exam Mouth exam: PRESENT: moist Neck exam: ABSENT: tracheal deviation Respiratory exam: PRESENT: symmetrical, unlabored Cardiovascular exam: PRESENT: RRR GI/Abdominal exam: PRESENT: normal bowel sounds, soft Rectal exam: PRESENT: deferred Extremities exam: ABSENT: pedal edema Neurological exam: PRESENT: alert, awake, oriented to person, oriented to place , oriented to time, oriented to situation Psychiatric exam: PRESENT: appropriate affect Skin exam: ABSENT: petechiae Results Laboratory Results: 02/16/18 06:26 02/18/18 06:10 02/18/18 06:10 Sodium 137.5 Potassium 4.1 Chloride 104 Carbon Dioxide 22 Anion Gap 12 BUN 9 Creatinine 0.78 Est GFR ( Amer) > 60 Est GFR (Non-Af Amer) > 60 Glucose 92 Calcium 8.6 Magnesium 2.0 02/15/18 17:25 Stool - Stool - Final 02/15/18 17:25 Stool - Stool Stool Culture - Final NO SALMONELLA, SHIGELLA, CAMPYLOBACTER, OR E.COLI 0157 RECOVERED. NEGATIVE FOR SHIGA TOXINS 1&2. 02/16/18 06:26 NT-Pro-B Natriuret Pep 320 Impressions: Abdomen/Pelvis CT 02/15/18 08:50 IMPRESSION: Sigmoid diverticulosis. No acute findings. Assessment & Plan - Diagnosis (1) Nausea vomiting and diarrhea Is this a current diagnosis for this admission?: Yes Plan: Likely secondary to acute viral gastroenteritis versus foodborne illness versus narcotic withdrawal. IV fluids antiemetics and symptomatic management. Stool negative for C. difficile and WBC. Stool culture negative (2) Hypertension Is this a current diagnosis for this admission?: Yes Plan: Monitor. Continue lisinopril, hold for hypotension IV Hydralazine prn (3) Chronic pain Is this a current diagnosis for this admission?: Yes Plan: Dilaudid slow taper and as needed. (4) Opiate dependence Is this a current diagnosis for this admission?: Yes Plan: As above. (5) Hypokalemia Is this a current diagnosis for this admission?: Yes Plan: Replete and monitor. - Time Time Spent with patient: 25-34 minutes
[2018-02-18] MEDS: MULTIVITAMIN TABLET PO SCH (10:54)
[2018-02-18] MEDS: PROMETHAZINE HCL 25 MG TABLET PO PRN (12:09)
[2018-02-18] MEDS: ATORVASTATIN CALCIUM 40 MG TABLET PO SCH (21:26)
[2018-02-19] MEDS: HYDROMORPHONE HCL 2 MG TABLET PO SCH (06:36)
--- NOTE | 2018-02-19 09:21 | PDOC DISCHARGE SUMMARY ---
General - Admit/Disc Date/PCP Admission Date/Primary Care Provider: 02/15/18 12:13 RILEY FREEMAN Discharge Date: 02/19/18 - Discharge Diagnosis (2) Chronic pain Is this a current diagnosis for this admission?: Yes (3) Hypertension Is this a current diagnosis for this admission?: Yes (4) Nausea vomiting and diarrhea Is this a current diagnosis for this admission?: Yes (5) Hypokalemia Is this a current diagnosis for this admission?: Yes - Additional Information Discharge Diet: As Tolerated Discharge Activity: Activity As Tolerated Home Medications: Atorvastatin Calcium [Lipitor 20 mg Tablet] 40 mg PO QHS 02/28/14 Hydromorphone HCl [Dilaudid 2 mg Tablet] 8 mg PO TID PRN 02/27/16 Sennosides/Docusate 8.6-50 mg [Senna Plus Tablet] 2 each PO BID #60 tablet 03/02 Lubiprostone [Amitiza 24 Mcg Capsule] 1 tab PO DAILY 12/06/17 Multivitamin [Multivitamins] 1 each PO DAILY 12/06/17 Lisinopril/Hydrochlorothiazide [Lisinopril-Hctz 20-25 mg Tab] 1 each PO DAILY Zolpidem Tartrate [Ambien] 10 mg PO QHS 02/15/18 History of Present Illness Patient complains of: Nausea vomiting and diarrhea History of Present Illness: ALANNA JIMENEZ is a 72 year old female With a known history of hypertension hyperlipidemia, multiple sclerosis, morbid obesity, chronic pain on opiates presented to the ED after she had discontinued Dilaudid for 3 days Patient was going to be switched to levorphanol by pain management and she had discontinued Dilaudid She had intractable nausea vomiting and diarrhea She was found to be hypokalemic with a K of 3.1 She was subsequently admitted on the hospitalist service Hospital Course Hospital Course: Patient was rehydrated Electrolytes were replaced CT abdomen and pelvis was essentially negative suggestive of diverticulosis Dilaudid was prescribed every 4 hours in small doses patient's condition improved; vomiting and diarrhea subsided on the day of discharge she is tolerating a diet and is asymptomatic Physical Exam Vital Signs: Temp Pulse Resp BP Pulse Ox 97.7 F 64 20 107/43 L 97 02/19/18 08:11 02/19/18 08:11 02/19/18 08:11 02/19/18 08:11 02/19/18 08:11 Intake & Output 02/18/18 02/19/18 02/20/18 00:59 00:59 00:59 Intake Total 1480 1090 Output Total 0 3400 Balance -570 -2310 Weight 95.7 kg 103.1 kg General appearance: PRESENT: no acute distress, well-developed, well-nourished Head exam: PRESENT: atraumatic, normocephalic Eye exam: PRESENT: conjunctiva pink, EOMI, PERRLA. ABSENT: scleral icterus Ear exam: PRESENT: normal external ear exam Mouth exam: PRESENT: moist, tongue midline Neck exam: ABSENT: carotid bruit, JVD, lymphadenopathy, thyromegaly Respiratory exam: PRESENT: clear to auscultation sara. ABSENT: rales, rhonchi, wheezes Cardiovascular exam: PRESENT: RRR. ABSENT: diastolic murmur, rubs, systolic murmur Pulses: PRESENT: normal dorsalis pedis pul Vascular exam: PRESENT: normal capillary refill GI/Abdominal exam: PRESENT: normal bowel sounds, soft. ABSENT: distended, guarding, mass, organolmegaly, rebound, tenderness Rectal exam: PRESENT: deferred Extremities exam: PRESENT: full ROM. ABSENT: calf tenderness, clubbing, pedal edema Neurological exam: PRESENT: alert, awake, oriented to person, oriented to place , oriented to time, oriented to situation, CN II-XII grossly intact. ABSENT: motor sensory deficit Psychiatric exam: PRESENT: appropriate affect, normal mood. ABSENT: homicidal ideation, suicidal ideation Skin exam: PRESENT: dry, intact, warm. ABSENT: cyanosis, rash Results Laboratory Results: 02/16/18 06:26 02/18/18 06:10 02/16/18 06:26 NT-Pro-B Natriuret Pep 320 Impressions: Abdomen/Pelvis CT 02/15/18 08:50 IMPRESSION: Sigmoid diverticulosis. No acute findings. Qualifiers - * PATIENT BEING DISCHARGED WITH ANY OF THE FOLLOWING DIAGNOSIS: No Plan Discharge Plan: Discharge home Patient ambulates with a cane; she is cared for by her Patient is to resume outpatient physical therapy She is to resume pain management as prescribed at home She will follow-up with her primary care physician within a week time; and with pain management as scheduled Time Spent: Less than 30 Minutes
[2018-02-19 09:56] VITALS: BP 87/41
[2018-02-19] MEDS ORDERED: HYDROMORPHONE HCL 2 MG TABLET PO SCH (14:00)
== END 2018-02-19 10:18 | disposition home or self-care (01) | DRG 897 ==
LOC: ER 04:38 → EH 12:13 → 2N 14:36
PROVIDERS: ADMIT Internal Medicine; ATTEND Internal Medicine
PROC: 3E0F73Z Introduction of Anti-inflammatory into Respiratory Tract, Via Natural or Artificial Opening (ICD-10-PCS; principal; 2018-02-16)
DX: F11.23 Opioid dependence with withdrawal (principal); Z68.42 Body mass index [BMI] 45.0-49.9, adult; E87.6 Hypokalemia; T40.2X6A Underdosing of other opioids, initial encounter; Z91.128 Patient's intentional underdosing of medication regimen for other reason; I10 Essential (primary) hypertension; E78.5 Hyperlipidemia, unspecified; E66.01 Morbid (severe) obesity due to excess calories; G35 Multiple sclerosis; G89.29 Other chronic pain; M54.9 Dorsalgia, unspecified; Z79.899 Other long term (current) drug therapy; M19.90 Unspecified osteoarthritis, unspecified site; F32.9 Major depressive disorder, single episode, unspecified; Z96.643 Presence of artificial hip joint, bilateral; Z82.49 Family history of ischemic heart disease and other diseases of the circulatory system; Z88.6 Allergy status to analgesic agent
CPT/HCPCS: 36415; 74177; 80048; 80053; 81001; 83690; 83735; 83880; 84100; 84443; 85025; 85027; 87040; 87045; 87205; 87493; 89055; 93005; 93010; 96361; 96372; 96374; 96375; 99285; J0360; J1170; J2270; J2405; J2550; J2765; J3010; J3475; J3480; J7030; S0119; S0164

== ENCOUNTER 2018-03-25 19:47 | Emergency (ER) | payer MEDICARE, OTHER ==
--- NOTE | 2018-03-25 23:25 | ER Document Report ---
ED Medical Screen (RME) - General Chief Complaint: Foot Pain Stated Complaint: FOOT PAIN Time Seen by Provider: 03/25/18 23:24 Mode of Arrival: Wheelchair Information source: Patient Notes: 72-year-old female patient presents with complaints of left foot pain. Patient reports that this pain has been ongoing for approximately 3-4 days. Patient reports that initially she thought that she might have had athletes feet and she tried using [id number] antifungal cream. Patient reports that the pain and redness has gotten worse. Patient has pain to the dorsal aspect of her foot, as well as under her third through fifth toes. Patient denies any history of diabetes. I have greeted and performed a rapid initial assessment of this patient. A comprehensive ED assessment and evaluation of the patient, analysis of test results and completion of the medical decision making process will be conducted by additional ED providers. Dictation of this chart was performed using voice recognition software; therefore, there may be some unintended grammatical errors. TRAVEL OUTSIDE OF THE [place] IN LAST 30 DAYS: No - Related Data Allergies/Adverse Reactions: chlordiazepoxide HCl [From Librium] Allergy (Severe, Verified 12/06/17 17:10) diazepam [From Valium] Allergy (Severe, Verified 12/06/17 17:10) manic, increased b/p NSAIDS (Non-Steroidal Anti-Inflamma [Nsaids] Allergy (Severe, Verified 12/06/17 17:10) ulcers Past Medical History - General Information source: Patient - Social History Cigarette use (# per day): No Frequency of alcohol use: None Drug Abuse: None Lives with: Family - Past Medical History Cardiac Medical History: Reports: Hx Hypercholesterolemia, Hx Hypertension Denies: Hx Coronary Artery Disease, Hx Heart Attack Pulmonary Medical History: Reports: Hx Asthma Denies: Hx Bronchitis, Hx COPD, Hx Pneumonia Neurological Medical History: Denies: Hx Cerebrovascular Accident, Hx Seizures Endocrine Medical History: Denies: Hx Diabetes Mellitus Type 1, Hx Diabetes Mellitus Type 2 Renal/ Medical History: Reports: Hx Kidney Stones. Denies: Hx Peritoneal Dialysis GI Medical History: Reports: Hx Diverticulitis, Hx Ulcer Musculoskeltal Medical History: Reports Hx Arthritis Psychiatric Medical History: Reports: Hx Depression - at times Past Surgical History: Reports: Hx Abdominal Surgery, Hx Genitourinary Surgery - HOOD MAKER surgery for incontinence 6 months ago, Hx Gynecologic Surgery - Ovarian cyst removal age 17, Hx Orthopedic Surgery - BILAT HIP REPLACEMENTS, L2- L4 - Immunizations Immunizations up to date: No Hx Diphtheria, Pertussis, Tetanus Vaccination: No Review of Systems - Review of Systems Constitutional: No symptoms reported EENT: No symptoms reported Cardiovascular: No symptoms reported Respiratory: No symptoms reported Gastrointestinal: No symptoms reported Genitourinary: No symptoms reported Female Genitourinary: No symptoms reported Musculoskeletal: See HPI Skin: No symptoms reported Hematologic/Lymphatic: No symptoms reported Neurological/Psychological: No symptoms reported Physical Exam - Vital signs Vitals: Temp Pulse Resp BP Pulse Ox 98.4 F 80 20 124/69 95 03/25/18 19:56 03/25/18 19:56 03/25/18 19:56 03/25/18 19:56 03/25/18 19:56 - Notes Notes: PHYSICAL EXAMINATION: GENERAL: Well-appearing, well-nourished and in no acute distress. Musculoskeletal: Normal range of motion. No cyanosis. PSYCH: Normal mood, normal affect. SKIN: Erythema and heat noted to top of left foot. Pus-like appearing pockets under and in between patients 3rd-5th toes. No streaking. Course - Vital Signs Vital signs: Temp Pulse Resp BP Pulse Ox 98.4 F 80 20 124/69 95 03/25/18 19:56 03/25/18 19:56 03/25/18 19:56 03/25/18 19:56 03/25/18 19:56 Doctor's Discharge - Discharge Referrals: JESSICA SINGH FNP [Primary Care Provider] - Follow up as needed
--- NOTE | 2018-03-26 00:51 | RADIOLOGY REPORT (SQ) ---
EXAM DESCRIPTION: US EXTREMITY MUSCULOSKELETAL LIMITED COMPLETED DATE/TME: 03/25/2018 23:29 CLINICAL HISTORY: 72 years, Female, left foot pain, swelling eval for abscess COMPARISON: None. LIMITATIONS: None. FINDINGS: Mild diffuse cutaneous soft tissue edema in an area of indicated symptomatology of the left foot between the second and third digits. No significant fluid collection, no abscess, no discernible mass. Normal vascularity. IMPRESSION: Mild diffuse edema.
[2018-03-26] MEDS ORDERED: CEPHALEXIN 500 MG CAPSULE PO ONE (00:53)
--- NOTE | 2018-03-26 00:56 | ER Document Report ---
ED General - General Chief Complaint: Foot Pain Stated Complaint: FOOT PAIN Time Seen by Provider: 03/25/18 23:24 Mode of Arrival: Wheelchair Notes: Patient is a 72 year old female with history of hypertension and hyperlipidemia who presents with 4 days of progressively worsening pain and swelling of her left foot. The patient states that she developed some blisters to the bottom of her left foot 3-4 days ago which were initially itchy and she thought they were athletes foot lesions. She states she treated him with an athlete's foot cream without any improvement. She notes that over the past 48 hours she has developed redness and swelling over the dorsum of her foot as well as the plantar surface of her foot as well as increasing burning, throbbing, constant pain. Nothing seems to improve or worsen her symptoms. She denies any history of similar symptoms in the past. She denies any fever or constitutional symptoms. She has not seen her general doctor regarding today's concerns. TRAVEL OUTSIDE OF THE [place] IN LAST 30 DAYS: No - Related Data Allergies/Adverse Reactions: chlordiazepoxide HCl [From Librium] Allergy (Severe, Verified 12/06/17 17:10) diazepam [From Valium] Allergy (Severe, Verified 12/06/17 17:10) manic, increased b/p NSAIDS (Non-Steroidal Anti-Inflamma [Nsaids] Allergy (Severe, Verified 12/06/17 17:10) ulcers Past Medical History - General Information source: Patient - Social History Smoking Status: Never Smoker Cigarette use (# per day): No Frequency of alcohol use: None Drug Abuse: None Lives with: Family, Spouse/Significant other Family History: Hypertension Patient has suicidal ideation: No Patient has homicidal ideation: No - Past Medical History Cardiac Medical History: Reports: Hx Hypercholesterolemia, Hx Hypertension Denies: Hx Coronary Artery Disease, Hx Heart Attack Pulmonary Medical History: Reports: Hx Asthma Denies: Hx Bronchitis, Hx COPD, Hx Pneumonia Neurological Medical History: Denies: Hx Cerebrovascular Accident, Hx Seizures Endocrine Medical History: Denies: Hx Diabetes Mellitus Type 1, Hx Diabetes Mellitus Type 2 Renal/ Medical History: Reports: Hx Kidney Stones. Denies: Hx Peritoneal Dialysis GI Medical History: Reports: Hx Diverticulitis, Hx Ulcer Musculoskeltal Medical History: Reports Hx Arthritis Psychiatric Medical History: Reports: Hx Depression - at times Past Surgical History: Reports: Hx Abdominal Surgery, Hx Genitourinary Surgery - COLD TYPE ARTIST surgery for incontinence 6 months ago, Hx Gynecologic Surgery - Ovarian cyst removal age 17, Hx Orthopedic Surgery - BILAT HIP REPLACEMENTS, L2- L4 - Immunizations Immunizations up to date: No Hx Diphtheria, Pertussis, Tetanus Vaccination: No Hx Pneumococcal Vaccination: 09/07/13 Review of Systems - Review of Systems Notes: Constitutional: Negative for fever. HENT: Negative for sore throat. Eyes: Negative for visual changes. Cardiovascular: Negative for chest pain. Respiratory: Negative for shortness of breath. Gastrointestinal: Negative for abdominal pain, vomiting or diarrhea. Genitourinary: Negative for dysuria. Musculoskeletal: Positive for left foot pain Skin: Positive for rash. Neurological: Negative for headaches, weakness or numbness. 10 point ROS negative except as marked above and in HPI. Physical Exam - Vital signs Vitals: Temp Pulse Resp BP Pulse Ox 98.4 F 80 20 124/69 95 03/25/18 19:56 03/25/18 19:56 03/25/18 19:56 03/25/18 19:56 03/25/18 19:56 Interpretation: Normal Notes: PHYSICAL EXAMINATION: GENERAL: Well-appearing, well-nourished and in no acute distress. HEAD: Atraumatic, normocephalic. EYES: Pupils equal round and reactive to light, extraocular movements intact, sclera anicteric, conjunctiva are normal. ENT: nares patent, oropharynx clear without exudates. Moist mucous membranes. NECK: Normal range of motion, supple without lymphadenopathy LUNGS: Breath sounds clear to auscultation bilaterally and equal. No wheezes rales or rhonchi. HEART: Regular rate and rhythm without murmurs. 2+ DP pulses bilaterally. ABDOMEN: Soft, nontender, normoactive bowel sounds. No guarding, no rebound. No masses appreciated. EXTREMITIES: Normal range of motion, no pitting or edema. No cyanosis. NEUROLOGICAL: No focal neurological deficits. Moves all extremities spontaneously and on command. PSYCH: Normal mood, normal affect. SKIN: Warm, Dry, normal turgor, there are serous filled blisters to the plantar surface of the foot at the level of the base of the third through fifth toes with some opening of several areas of the blisters. There is associated erythema around these areas of blisters extending onto the dorsum of the foot to approximately the distal one third of the dorsal surface of the foot. Mild swelling to the affected area but no areas of fluctuance or induration. Course - Re-evaluation Re-evalutation: 03/26/18 00:54 The patient presents with a cellulitis of the left plantar and dorsal foot which appears to have started from multiple blisters around the third fourth and fifth digits of the left foot. The patient does regularly go to the pool and it looks as if she had excessive water exposure causing some blistering of the skin which subsequently opened resulting in infection. The lesions themselves are not pustules they appear to be clear fluid blisters and I did open 1 of them with an 18-gauge needle and expressed a clear, serous fluid. I do not therefore believe the patient requires MRSA coverage. Will start on cephalexin for strep coverage. No indication for labs at this time point as the patient is very well in appearance, denies any fever or constitutional symptoms, vitals within normal limits. Extremity ultrasound was ordered from triage and does not demonstrate any distinct fluid collections. - Vital Signs Vital signs: Temp Pulse Resp BP Pulse Ox 98.7 F 80 16 120/64 98 03/26/18 01:00 03/25/18 19:56 03/26/18 01:00 03/26/18 01:00 03/26/18 01:00 - Diagnostic Test Radiology reviewed: Reports reviewed Discharge - Discharge Clinical Impression: Cellulitis of left foot Friction blisters of sole of left foot Qualifiers: Encounter type: initial encounter Qualified Code(s): S90.822A - Blister ( nonthermal), left foot, initial encounter Condition: Good Disposition: HOME, SELF-CARE Additional Instructions: The rash is likely due to infection of your skin. You need to take the antibiotics as prescribed. Do not stop even if the rash goes away until you have completed all the antibiotics. The area of redness was traced out here in the emergency department with a marking pen. You need to return to emergency department if the redness spreads outside of this area by more than 2 cm in any direction. You should also return if you develop fevers with temperature greater than 101, persistent vomiting, worsening pain, or have any other symptoms that are concerning to you. Prescriptions: Cephalexin Monohydrate [Keflex 500 mg Capsule] 500 mg PO Q6H 7 Days capsule Referrals: SAMANTHA,JESSICA, UPHOLSTERY CUTTER [Primary Care Provider] - Follow up in 3-5 days
[2018-03-26 01:04] VITALS: BP 120/64
== END 2018-03-26 01:04 | disposition home or self-care (01) ==
LOC: ER 19:47
DX: S90.822A Blister (nonthermal), left foot, initial encounter (principal); L03.116 Cellulitis of left lower limb; X58.XXXA Exposure to other specified factors, initial encounter; I10 Essential (primary) hypertension; J45.909 Unspecified asthma, uncomplicated; Z88.8 Allergy status to other drugs, medicaments and biological substances
CPT/HCPCS: 99283; 76882; A9270

== ENCOUNTER 2018-07-24 11:48 | Emergency (ER) | payer MEDICARE, OTHER ==
[2018-07-24] MEDS ORDERED: ONDANSETRON HCL INJ/PF 4 MG/2 ML SDV IV ONE (12:34)
[2018-07-24] MEDS ORDERED: NORMAL SALINE 1000 ML 1,000 ML IV ONE (12:34)
--- NOTE | 2018-07-24 12:37 | ER Document Report ---
ED Medical Screen (RME) - General Chief Complaint: Chest Congestion Stated Complaint: DIFFICULTY SWALLOWING Time Seen by Provider: 07/24/18 12:34 Notes: 72 years old female presents today with abdominal pain nausea vomiting, chest pain left neck pain, difficulty in breathing and coughing. On examination morbidly obese. Pharyngeal erythema noted. TRAVEL OUTSIDE OF THE [place] IN LAST 30 DAYS: No - Related Data Allergies/Adverse Reactions: chlordiazepoxide HCl [From Librium] Allergy (Severe, Verified 07/24/18 11:49) diazepam [From Valium] Allergy (Severe, Verified 07/24/18 11:49) manic, increased b/p NSAIDS (Non-Steroidal Anti-Inflamma [Nsaids] Allergy (Severe, Verified 07/24/18 11:49) ulcers amoxicillin [From Augmentin] Allergy (Verified 07/24/18 12:30) clavulanic acid [From Augmentin] Allergy (Verified 07/24/18 12:30) Past Medical History - Social History Frequency of alcohol use: Rare Drug Abuse: None - Past Medical History Cardiac Medical History: Reports: Hx Hypercholesterolemia, Hx Hypertension Denies: Hx Coronary Artery Disease, Hx Heart Attack Pulmonary Medical History: Reports: Hx Asthma Denies: Hx Bronchitis, Hx COPD, Hx Pneumonia Neurological Medical History: Denies: Hx Cerebrovascular Accident, Hx Seizures Endocrine Medical History: Denies: Hx Diabetes Mellitus Type 1, Hx Diabetes Mellitus Type 2 Renal/ Medical History: Reports: Hx Kidney Stones. Denies: Hx Peritoneal Dialysis GI Medical History: Reports: Hx Diverticulitis, Hx Ulcer Musculoskeltal Medical History: Reports Hx Arthritis Psychiatric Medical History: Reports: Hx Depression - at times Past Surgical History: Reports: Hx Abdominal Surgery, Hx Genitourinary Surgery - Bladder surgery for incontinence 6 months ago, Hx Gynecologic Surgery - Ovarian cyst removal age 17, Hx Orthopedic Surgery - BILAT HIP REPLACEMENTS, L2- L4 - Immunizations Immunizations up to date: No Hx Diphtheria, Pertussis, Tetanus Vaccination: No Physical Exam - Vital signs Vitals: Temp Pulse Resp BP Pulse Ox 97.8 F 71 18 133/75 H 98 07/24/18 12:08 07/24/18 12:08 07/24/18 12:08 07/24/18 12:08 07/24/18 12:08 Course - Vital Signs Vital signs: Temp Pulse Resp BP Pulse Ox 97.8 F 71 18 133/75 H 98 07/24/18 12:08 07/24/18 12:08 07/24/18 12:08 07/24/18 12:08 07/24/18 12:08 Doctor's Discharge - Discharge Referrals: JESSICA SINGH FNP [Primary Care Provider] - Follow up as needed
[2018-07-24 13:29] LABS: ABSOLUTE EOSINOPHILS # (AUTO) 0.1 10^3/uL (0.0-0.6); ABSOLUTE LYMPHOCYTES (AUTO) 1.3 10^3/uL (0.5-4.7); ABSOLUTE MONOCYTES (AUTO) 0.3 10^3/uL (0.1-1.4); ABSOLUTE NEUT (AUTO) 5.4 10^3/uL (1.7-8.2); BASOPHILS % (AUTO) 0.3 % (0-2); EOSINOPHILS % (AUTO) 0.9 % (0-6); HEMOGLOBIN 14.5 g/dL (12.0-15.5); LYMPHOCYTES % (AUTO) 18.3 % (13-45); MEAN CORPUSCULAR HEMOGLOBIN 30.1 pg (27.0-33.4); MEAN CORPUSCULAR HGB CONC 34.7 g/dL (32.0-36.0); MEAN CORPUSCULAR VOLUME 87 fl (80-97); MONOCYTES % (AUTO) 4.8 % (3-13); PLATELET COUNT 201 10^3/uL (150-450); RED BLOOD COUNT 4.83 10^6/uL (3.72-5.28); RED CELL DISTRIBUTION WIDTH 14.9 % (11.5-14.0); SEGMENTED NEUTROPHILS % (AUTO) 75.7 % (42-78); TOTAL CELLS COUNTED % (AUTO) 100 %; WHITE BLOOD COUNT 7.2 10^3/uL (4.0-10.5)
[2018-07-24 13:46] LABS: ALANINE AMINOTRANSFERASE 32 U/L (9-52); ALBUMIN 4.7 g/dL (3.5-5.0); ALKALINE PHOSPHATASE 86 U/L (38-126); ANION GAP 11 (5-19); ASPARTATE AMINO TRANSFERASE 45 U/L (14-36); BILIRUBIN,DIRECT 0.3 mg/dL (0.0-0.4); BILIRUBIN,TOTAL 0.8 mg/dL (0.2-1.3); BLOOD UREA NITROGEN 12 mg/dL (7-20); CALCIUM 9.6 mg/dL (8.4-10.2); CARBON DIOXIDE 27 mmol/L (22-30); CHLORIDE 98 mmol/L (98-107); CREATINE KINASE 110 U/L (30-135); GLUCOSE 114 mg/dL (75-110); LIPASE 104.8 U/L (23-300); POTASSIUM 3.7 mmol/L (3.6-5.0); SODIUM 136.3 mmol/L (137-145); TOTAL PROTEIN 7.7 g/dL (6.3-8.2)
[2018-07-24 13:58] LABS: CREATINE KINASE MB 1.93 ng/mL (<4.55)
[2018-07-24 13:59] LABS: TROPONIN I < 0.012 ng/mL
--- NOTE | 2018-07-24 13:59 | RADIOLOGY REPORT (SQ) ---
EXAM DESCRIPTION: ACUTE ABDOMEN SERIES COMPLETED DATE/TIME: 07/24/2018 1:47 pm REASON FOR STUDY: Abdominal pain COMPARISON: None. NUMBER OF VIEWS: Three views. TECHNIQUE: Frontal chest, supine abdomen and upright/decubitus abdomen radiographic images acquired. LIMITATIONS: None. FINDINGS: CHEST: Lungs clear of infiltrates. FREE AIR: None. No abnormal gas collections. BOWEL GAS PATTERN: Nonobstructive pattern. No dilated loops or air fluid levels. CALCIFICATIONS: No suspicious calcifications. HARDWARE: None in the abdomen. SOFT TISSUES: No gross mass or suggestion of organomegaly. BONES: Scoliosis. Surgical changes. Neurostimulator. Bilateral hip arthroplasties. OTHER: No other significant finding. IMPRESSION: NO RADIOGRAPHIC EVIDENCE FOR ACUTE ABDOMINAL DISEASE. TECHNICAL DOCUMENTATION: JOB ID: [id number] [employer]- All Rights Reserved Reading location - IP/workstation name: [email or web address]
--- NOTE | 2018-07-24 14:56 | ER Document Report ---
ED General - General Chief Complaint: Chest Congestion Stated Complaint: DIFFICULTY SWALLOWING Time Seen by Provider: 07/24/18 12:34 Mode of Arrival: Ambulatory Information source: Patient Notes: 72 bidame-axht-loa female with hypertension, hyperlipidemia presents with multiple complaints including nausea, chest heaviness, congestion, diarrhea and abdominal pain, difficulty swallowing. Patient states symptoms started 5 days prior to arrival. Patient complaining of generalized abdominal "soreness". Patient reports 2-3 episodes of nonbloody diarrhea. She has had nausea without vomiting. She states that she feels like her food is getting stuck when she swallows but then reports that she has been able to tolerate Jell-O and liquids without difficulty. She does report a recent urinary tract infection which was treated with Keflex and completed 3 days ago. Patient does report a productive cough last week which has improved. She denies any recent travel, sick contacts. She does state that she has stopped her long-term pain medication of Levorphanol 4 days ago due to constipation. She has had prior similar symptoms when having this medication before. TRAVEL OUTSIDE OF THE [place] IN LAST 30 DAYS: No - HPI Onset: Other Onset/Duration: Persistent Quality of pain: Achy, Other Severity: Mild Associated symptoms: Chest pain, Chills, Diarrhea, Nausea. denies: Fever, Headache, Shortness of breath, Sweating Exacerbated by: Food Relieved by: Denies Similar symptoms previously: No Recently seen / treated by doctor: No - Related Data Allergies/Adverse Reactions: chlordiazepoxide HCl [From Librium] Allergy (Severe, Verified 07/24/18 11:49) diazepam [From Valium] Allergy (Severe, Verified 07/24/18 11:49) manic, increased b/p NSAIDS (Non-Steroidal Anti-Inflamma [Nsaids] Allergy (Severe, Verified 07/24/18 11:49) ulcers amoxicillin [From Augmentin] Allergy (Verified 07/24/18 12:30) clavulanic acid [From Augmentin] Allergy (Verified 07/24/18 12:30) Past Medical History - General Information source: Patient, Relative, [facility] Records - Social History Smoking Status: Former Smoker Frequency of alcohol use: Rare Drug Abuse: None Lives with: Spouse/Significant other Family History: Hypertension Patient has suicidal ideation: No Patient has homicidal ideation: No - Past Medical History Cardiac Medical History: Reports: Hx Hypercholesterolemia, Hx Hypertension Denies: Hx Coronary Artery Disease, Hx Heart Attack Pulmonary Medical History: Reports: Hx Asthma Denies: Hx Bronchitis, Hx COPD, Hx Pneumonia Neurological Medical History: Denies: Hx Cerebrovascular Accident, Hx Seizures Endocrine Medical History: Denies: Hx Diabetes Mellitus Type 1, Hx Diabetes Mellitus Type 2 Renal/ Medical History: Reports: Hx Kidney Stones. Denies: Hx Peritoneal Dialysis GI Medical History: Reports: Hx Diverticulitis, Hx Ulcer Musculoskeletal Medical History: Reports Hx Arthritis Psychiatric Medical History: Reports: Hx Depression - at times Past Surgical History: Reports: Hx Abdominal Surgery, Hx Genitourinary Surgery - Bladder surgery for incontinence 6 months ago, Hx Gynecologic Surgery - Ovarian cyst removal age 17, Hx Orthopedic Surgery - BILAT HIP REPLACEMENTS, L2- L4 - Immunizations Immunizations up to date: No Hx Diphtheria, Pertussis, Tetanus Vaccination: No Hx Pneumococcal Vaccination: 09/07/13 Review of Systems - Review of Systems Constitutional: Weakness, Recent illness. denies: Fever EENT: Nose congestion Cardiovascular: denies: Palpitations, Dizziness, Lightheaded, Edema Respiratory: Cough, Other - Chest congestion. denies: Short of breath Gastrointestinal: Abdominal pain, Diarrhea, Nausea. denies: Blood streaked bowels, Black stools Genitourinary: denies: Dysuria, Flank pain Female Genitourinary: No symptoms reported Musculoskeletal: Back pain - Chronic Skin: denies: Rash Hematologic/Lymphatic: denies: Swollen glands Neurological/Psychological: denies: Seizure, Lost consciousness, Headaches -: Yes All other systems reviewed and negative Physical Exam - Vital signs Vitals: Temp Pulse Resp BP Pulse Ox 97.8 F 71 18 133/75 H 98 07/24/18 12:08 07/24/18 12:08 07/24/18 12:08 07/24/18 12:08 07/24/18 12:08 - Notes Notes: PHYSICAL EXAMINATION: GENERAL: Well-appearing, well-nourished and in no acute distress. HEAD: Atraumatic, normocephalic. EYES: Pupils equal round and reactive to light, extraocular movements intact, conjunctiva are normal. ENT: Nares patent, oropharynx clear without exudates. Moist mucous membranes. NECK: Normal range of motion, supple without lymphadenopathy LUNGS: Breath sounds clear to auscultation bilaterally and equal. No wheezes rales or rhonchi. HEART: Regular rate and rhythm without murmurs ABDOMEN: Soft, nontender, nondistended abdomen. No guarding, no rebound. No masses appreciated. Female : deferred Musculoskeletal: Normal range of motion, no pitting or edema. No cyanosis. NEUROLOGICAL: Cranial nerves grossly intact. Normal speech, normal gait. Normal sensory, motor exams PSYCH: Normal mood, normal affect. SKIN: Warm, Dry, normal turgor, no rashes or lesions noted. Course - Re-evaluation Re-evalutation: Laboratory 07/24/18 07/24/18 07/24/18 13:00 13:00 13:00 WBC 7.2 RBC 4.83 Hgb 14.5 Hct 42.0 MCV 87 MCH 30.1 MCHC 34.7 RDW 14.9 H Plt Count 201 Seg Neutrophils % 75.7 Lymphocytes % 18.3 Monocytes % 4.8 Eosinophils % 0.9 Basophils % 0.3 Absolute Neutrophils 5.4 Absolute Lymphocytes 1.3 Absolute Monocytes 0.3 Absolute Eosinophils 0.1 Absolute Basophils 0.0 Sodium 136.3 L Potassium 3.7 Chloride 98 Carbon Dioxide 27 Anion Gap 11 BUN 12 Creatinine 0.78 Est GFR ( Amer) > 60 Est GFR (Non-Af Amer) > 60 Glucose 114 H Calcium 9.6 Total Bilirubin 0.8 Direct Bilirubin 0.3 Neonat Total Bilirubin Not Reportable Neonat Direct Bilirubin Not Reportable Neonat Indirect Bili Not Reportable AST 45 H ALT 32 Alkaline Phosphatase 86 Creatine Kinase 110 CK-MB (CK-2) 1.93 Troponin I < 0.012 Total Protein 7.7 Albumin 4.7 Lipase 104.8 Urine Color Urine Appearance Urine pH Ur Specific [place] Urine Protein Urine Glucose (UA) Urine Ketones Urine Blood Urine Nitrite Urine Bilirubin Urine Urobilinogen Ur Leukocyte Esterase Urine WBC (Auto) Urine RBC (Auto) Urine Mucus (Auto) Urine Ascorbic Acid 07/24/18 16:20 WBC RBC Hgb Hct MCV MCH MCHC RDW Plt Count Seg Neutrophils % Lymphocytes % Monocytes % Eosinophils % Basophils % Absolute Neutrophils Absolute Lymphocytes Absolute Monocytes Absolute Eosinophils Absolute Basophils Sodium Potassium Chloride Carbon Dioxide Anion Gap BUN Creatinine Est GFR ( Amer) Est GFR (Non-Af Amer) Glucose Calcium Total Bilirubin Direct Bilirubin Neonat Total Bilirubin Neonat Direct Bilirubin Neonat Indirect Bili AST ALT Alkaline Phosphatase Creatine Kinase CK-MB (CK-2) Troponin I Total Protein Albumin Lipase Urine Color GEOVANNA Urine Appearance CLEAR Urine pH 6.0 Ur Specific [place] 1.024 Urine Protein NEGATIVE Urine Glucose (UA) NEGATIVE Urine Ketones NEGATIVE Urine Blood NEGATIVE Urine Nitrite NEGATIVE Urine Bilirubin NEGATIVE Urine Urobilinogen 2.0 H Ur Leukocyte Esterase NEGATIVE Urine WBC (Auto) 0 Urine RBC (Auto) 2 Urine Mucus (Auto) RARE Urine Ascorbic Acid NEGATIVE Acute Abdomen Series 07/24/18 12:36 IMPRESSION: NO RADIOGRAPHIC EVIDENCE FOR ACUTE ABDOMINAL DISEASE. 72 thqynq-qnxy-vhu female with hypertension, hyperlipidemia presents with multiple complaints including nausea, chest heaviness, congestion, diarrhea and abdominal pain, difficulty swallowing. Patient states symptoms started 5 days prior to arrival. Patient complaining of generalized abdominal "soreness". Patient reports 2-3 episodes of nonbloody diarrhea. She has had nausea without vomiting. She states that she feels like her food is getting stuck when she swallows but then reports that she has been able to tolerate Jell-O and liquids without difficulty. She does report a recent urinary tract infection which was treated with Keflex and completed 3 days ago. Patient does report a productive cough last week which has improved. She denies any recent travel, sick contacts. She does state that she has stopped her long-term pain medication of Levorphanol 4 days ago due to constipation. She has had prior similar symptoms when having this medication before. Vital signs reviewed and within normal limits upon arrival. Patient does not appear toxic or dehydrated. She is in no acute distress. CBC is without leukocytosis or anemia. CMP is unremarkable. Troponin within normal limits. Urinalysis not consistent with infection. Acute abdominal series is within normal limits. Patient did receive Zofran, morphine and Reglan during her ED course. On reevaluation she does report improvement of her pain and nausea. is at the bedside and states that this is what happened the last time she stopped taking her long- term pain medication. Patient was discharged home with prescription for Zofran. 07/24/18 17:42 On reevaluation patient reports improvement of her abdominal pain and nausea. She is tolerating fluids. 07/24/18 23:24 Patient was evaluated and treated as appropriate for the patient's presenting symptoms and complaint, with consideration of any critical or life threatening conditions that may be associated with their obtained history and exam as noted above. All results were discussed with patient. Patient provided the opportunity to ask questions, and express concerns. Patient was educated on treatments based on their presumed diagnosis as noted above. At this time we will discharge the patient with return precautions and follow-up recommendations. Verbal discharge instructions given a the bedside. Medication warnings reviewed. Patient is in agreement with this plan and has verbalized understanding of return precautions. After careful consideration I feel that that patient can be safely discharged from the emergency department, they were advised to followup with a primary care physician in 2-3 days. Dictation on this chart was performed using voice recognition software and may result in unintended grammatical, spelling, syntax or errors. 07/24/18 23:25 07/24/18 23:26 - Vital Signs Vital signs: Temp Pulse Resp BP Pulse Ox 98.5 F 71 18 108/66 99 07/24/18 18:01 07/24/18 12:08 07/24/18 18:01 07/24/18 18:01 07/24/18 18:01 - Laboratory Result Diagrams: 07/24/18 13:00 07/24/18 13:00 Laboratory results interpreted by me: 07/24/18 07/24/18 07/24/18 13:00 13:00 16:20 RDW 14.9 H Sodium 136.3 L Glucose 114 H AST 45 H Urine Urobilinogen 2.0 H - Diagnostic Test Radiology reviewed: Image reviewed, Reports reviewed Discharge - Discharge Clinical Impression: Nausea, Opiate withdrawal, Chest discomfort Abdominal pain Qualifiers: Abdominal location: generalized Qualified Code(s): R10.84 - Generalized abdominal pain Opiate dependence Qualifiers: Substance use status: in withdrawal Qualified Code(s): F11.23 - Opioid dependence with withdrawal Condition: Good Disposition: HOME, SELF-CARE Instructions: Abdominal Pain ([facility]), Nausea or Vomiting, Nonspecific ([facility]), Oral Narcotic Medication ([facility]) Additional Instructions: You have been seen in the Emergency Department (ED) for abdominal pain. Your evaluation did not identify a clear cause of your symptoms but but I suspect this is due to your abrupt stopping of your chronic pain medications. Please follow up with your doctor as soon as possible regarding today's emergent visit and the symptoms that are bothering you. Return to the ED if your abdominal pain worsens or fails to improve, you develop bloody vomiting, bloody diarrhea, you are unable to tolerate fluids due to vomiting, fever greater than 101, or other symptoms that concern you. Follow up with your [id number] hours for further care or return to the ED IMMEDIATELY if symptoms worsen or you have any concerns. If you cannot afford to follow up with your primary care physician a list of low cost clinics have been provided at the end of your discharge papers as well. Most prescribed medications have multiple side effects. The safest thing to do is when filling your prescription speak to your pharmacist regarding possible interactions with your normal home medications and over the counter medications such as Ibuprofen, Tylenol, Benadryl. If you experience any symptoms that cause you discomfort or concern you should discontinue the medication immediately and return to the emergency room or call your primary care physician. Prescriptions: Ondansetron [Zofran Odt 4 mg Tablet] 1 tab PO Q4H PRN #10 tab.rapdis PRN Reason: For Nausea/Vomiting Forms: Elevated Blood Pressure Referrals: JESSICA SINGH FNP [Primary Care Provider] - Follow up as needed
[2018-07-24] MEDS ORDERED: METOCLOPRAMIDE HCL INJ/PF 10 MG/2 ML SDV IV ONE (16:31)
[2018-07-24] MEDS ORDERED: MORPHINE SULFATE 10 MG/ML INJ IV ONE (16:31)
[2018-07-24 16:35] LABS: APPEARANCE,URINE CLEAR; BILIRUBIN,URINE NEGATIVE (NEGATIVE); COLOR,URINE AMBER; GLUCOSE, URINE NEGATIVE (NEGATIVE); KETONES,URINE NEGATIVE (NEGATIVE); LEUKOCYTE ESTERASE,URINE NEGATIVE (NEGATIVE); NITRITE,URINE NEGATIVE (NEGATIVE); PROTEIN,URINE NEGATIVE (NEGATIVE); URINE SPECIFIC GRAVITY 1.024
[2018-07-24 18:05] VITALS: BP 108/66
== END 2018-07-24 18:11 | disposition home or self-care (01) ==
LOC: ER 11:48
DX: R10.84 Generalized abdominal pain (principal); R11.0 Nausea; R07.9 Chest pain, unspecified; F11.23 Opioid dependence with withdrawal; R19.7 Diarrhea, unspecified; R13.10 Dysphagia, unspecified; R09.89 Other specified symptoms and signs involving the circulatory and respiratory systems; Z87.891 Personal history of nicotine dependence; J45.909 Unspecified asthma, uncomplicated; I10 Essential (primary) hypertension; E78.5 Hyperlipidemia, unspecified
CPT/HCPCS: 99284; 96361; 96374; 96375; 36415; 82553; 82550; 83690; 85025; 80053; 81001; 84484; 74022; J2765; J2270; J2405; J7030

== ENCOUNTER 2018-11-25 08:10 | Emergency (ER) | payer MEDICARE, OTHER ==
[2018-11-25] MEDS ORDERED: PROCHLORPERAZINE EDISYLATE INJ 10 MG/2 ML VIAL IV ONE ×2 (09:09→15:31)
--- NOTE | 2018-11-25 09:13 | ER Document Report ---
ED GI/ - General Chief Complaint: Nausea/Vomiting/Diarrhea Stated Complaint: VOMITING Time Seen by Provider: 11/25/18 09:08 Primary Care Provider: JESSICA SINGH FNP [Primary Care Provider] - Follow up as needed Notes: 73-year-old female presents to the ER with nausea vomiting diarrhea starting on . The patient was seen by her doctor on Sunday and placed on Augmentin for an upper respiratory infection. The patient began to have vomiting and diarrhea shortly after the Augmentin was started. The patient has continued on the Augmentin is continued to have symptoms. States the respiratory congestion has improved. She denies sore throat now. Has vomited 3-4 times a day 4-5 loose bowel movements a day no black bloody or tarry stools no hematemesis no coffee-ground emesis. TRAVEL OUTSIDE OF THE [place] IN LAST 30 DAYS: No - Related Data Allergies/Adverse Reactions: chlordiazepoxide HCl [From Librium] Allergy (Severe, Verified 11/25/18 08:13) diazepam [From Valium] Allergy (Severe, Verified 11/25/18 08:13) manic, increased b/p NSAIDS (Non-Steroidal Anti-Inflamma [Nsaids] Allergy (Severe, Verified 11/25/18 08:13) ulcers amoxicillin [From Augmentin] Allergy (Verified 11/25/18 08:13) clavulanic acid [From Augmentin] Allergy (Verified 11/25/18 08:13) Past Medical History - Social History Smoking Status: Unknown if Ever Smoked Family History: Hypertension Patient has suicidal ideation: No Patient has homicidal ideation: No - Past Medical History Cardiac Medical History: Reports: Hx Hypercholesterolemia, Hx Hypertension Denies: Hx Coronary Artery Disease, Hx Heart Attack Pulmonary Medical History: Reports: Hx Asthma Denies: Hx Bronchitis, Hx COPD, Hx Pneumonia Neurological Medical History: Denies: Hx Cerebrovascular Accident, Hx Seizures Endocrine Medical History: Denies: Hx Diabetes Mellitus Type 1, Hx Diabetes Mellitus Type 2 Renal/ Medical History: Reports: Hx Kidney Stones. Denies: Hx Peritoneal Dialysis GI Medical History: Reports: Hx Diverticulitis, Hx Ulcer Musculoskeletal Medical History: Reports Hx Arthritis Psychiatric Medical History: Reports: Hx Depression - at times Past Surgical History: Reports: Hx Abdominal Surgery, Hx Genitourinary Surgery - Bladder surgery for incontinence 6 months ago, Hx Gynecologic Surgery - Ovarian cyst removal age 17, Hx Orthopedic Surgery - BILAT HIP REPLACEMENTS, L2-L4 - Immunizations Immunizations up to date: No Hx Diphtheria, Pertussis, Tetanus Vaccination: No Hx Pneumococcal Vaccination: 09/07/13 Review of Systems - Review of Systems Constitutional: denies: Chills, Fever EENT: Nose congestion, Sinus pressure, Sinus discharge Cardiovascular: denies: Dyspnea Respiratory: Cough Gastrointestinal: Abdominal pain, Diarrhea, Nausea, Vomiting. denies: Constipation, Black stools, Rectal bleeding -: Yes All other systems reviewed and negative Physical Exam - Vital signs Vitals: Temp Pulse Resp BP Pulse Ox 99.5 F 68 20 172/93 H 97 11/25/18 08:19 11/25/18 08:19 11/25/18 08:19 11/25/18 08:19 11/25/18 08:19 - Notes Notes: GENERAL_APPEARANCE: well_nourished, alert, cooperative, is uncomfortable VITALS: reviewed, see vital signs table. HEAD: no_swelling\tenderness on the head. EYES: PERRL, EOMI, conjunctiva_clear. NOSE: no_nasal_discharge. MOUTH: Dry mucous membranes THROAT: no_throat_inflammation, no_airway_obstruction. no_lymphadenopathy NECK: supple, no_neck_tenderness, (-)thyromegaly. BACK: no_back_tenderness. CHEST_WALL: no_chest_tenderness. LUNGS: no_wheezing, no_rales, no_rhonchi, (-)accessory muscle use, good air exchange bilateral. HEART: normal_rate, normal_rhythm, normal_S1, normal_S2, (-)S3, (-)S4, no_murmur, no_rub. ABDOMEN: normal_BS, soft, mild epigastric_abd_tenderness, (-)guarding, (- )rebound, no_organomegaly, no_abd_masses. EXTREMITIES: good pulses in all_extremities, no_swelling\tenderness in the extremities, no_edema. SKIN: warm, dry, good_color, no_rash. MENTAL_STATUS: speech_clear, oriented_X_3, normal_affect, responds_appropriately to questions. Course - Re-evaluation Re-evalutation: 11/25/18 09:12 73-year-old female persists with nausea vomiting and diarrhea since . The patient saw her primary care on Sunday and was placed on Augmentin for a URI. Her GI symptoms began after starting the Augmentin. We will stop the Augmentin. Give the patient IV fluids and Compazine. Likely the patient is not tolerating the Augmentin well. Her upper respiratory infection looks well she really does not have any sinus pressure/tenderness. No purulent discharge. Throat is improved. She does have dry mucous membranes we will give her several liters of IV fluids and Compazine. Her abdomen had some mild epigastric discomfort was scant but no rebound or guarding is noted. 11/25/18 15:31 Patient is feeling a lot better after fluids and Compazine. She wanted an additional dose before she went will prescribe some Compazine suppositories. Patient is comfortable going home a repeat abdominal exam is soft and supple without rebound or guarding no focal tenderness. Patient is doing well this is likely viral in nature. Versus Augmentin. We will have her stop the Augmentin. - Vital Signs Vital signs: Temp Pulse Resp BP Pulse Ox 99.5 F 68 20 172/93 H 97 11/25/18 08:19 11/25/18 08:19 11/25/18 08:19 11/25/18 08:19 11/25/18 08:19 - Laboratory Result Diagrams: 11/25/18 09:36 11/25/18 09:36 Laboratory results interpreted by me: 11/25/18 11/25/18 11/25/18 09:36 09:36 14:40 RDW 14.7 H Seg Neutrophils % 81.6 H Lymphocytes % 12.7 L Absolute Neutrophils 8.6 H Sodium 135.9 L Potassium 3.5 L Chloride 96 L Glucose 129 H AST 67 H Urine Urobilinogen 2.0 H - Diagnostic Test Radiology reviewed: Reports reviewed Radiology results interpreted by me: 11/25/18 15:31 Abdomen/Pelvis CT 11/25/18 09:08 IMPRESSION: 1. Colonic diverticulosis without evidence of diverticulitis. 2. The examination of the pelvis is somewhat limited due to artifact from bilateral total hip prostheses and neurostimulator catheter device in the right gluteal soft tissues. 3. Additional findings as above. Discharge - Discharge Clinical Impression: Gastritis, Nausea & vomiting Condition: Good Disposition: HOME, SELF-CARE Instructions: Antinausea Medication ([facility]), Vomiting ([facility]) Additional Instructions: Stop the Augmentin and you may take Pepcid Complete for stomach discomfort. Prescriptions: Prochlorperazine Maleate [Compazine 25 Mg Supp.Rect] 25 mg UT TID PRN #[id number] supp.rect PRN Reason: Referrals: JESSICA SINGH FNP [Primary Care Provider] - Follow up as needed
[2018-11-25] MEDS: NORMAL SALINE 1000 ML 1,000 ML IV PRN ×2 (09:33→14:27)
[2018-11-25 09:50] LABS: ABSOLUTE LYMPHOCYTES (AUTO) 1.3 10^3/uL (0.5-4.7); ABSOLUTE MONOCYTES (AUTO) 0.5 10^3/uL (0.1-1.4); ABSOLUTE NEUT (AUTO) 8.6 10^3/uL (1.7-8.2); BASOPHILS % (AUTO) 0.4 % (0-2); EOSINOPHILS % (AUTO) 0.3 % (0-6); HEMATOCRIT 42.6 % (36.0-47.0); HEMOGLOBIN 14.5 g/dL (12.0-15.5); LYMPHOCYTES % (AUTO) 12.7 % (13-45); MEAN CORPUSCULAR HGB CONC 34.1 g/dL (32.0-36.0); MEAN CORPUSCULAR VOLUME 88 fl (80-97); PLATELET COUNT 192 10^3/uL (150-450); RED BLOOD COUNT 4.85 10^6/uL (3.72-5.28); RED CELL DISTRIBUTION WIDTH 14.7 % (11.5-14.0); SEGMENTED NEUTROPHILS % (AUTO) 81.6 % (42-78); TOTAL CELLS COUNTED % (AUTO) 100 %; WHITE BLOOD COUNT 10.5 10^3/uL (4.0-10.5)
--- NOTE | 2018-11-25 10:00 | RADIOLOGY REPORT (SQ) ---
EXAM DESCRIPTION: CT ABD/PELVIS NO ORAL OR IV COMPLETED DATE/TIME: 11/25/2018 9:26 am REASON FOR STUDY: ABD PAIN COMPARISON: 12/06/2017 TECHNIQUE: CT scan of the abdomen and pelvis performed without intravenous or oral contrast. Images reviewed with lung, soft tissue, and bone windows. Reconstructed coronal and sagittal MPR images revi ewed. All images stored on PACS. All CT scanners at this facility use dose modulation, iterative reconstruction, and/or weight based d osing when appropriate to reduce radiation dose to as low as reasonably achievable (ALARA). [facility]: Dose Right [facility]: CareDose [facility]: Dose Right [facility]: Teradose 4D [facility]: Smart [employer] Systems RADIATION DOSE: CT Rad equipment meets quality standard of care and radiation dose reduction techniq ues were employed. CTDIvol: 17.9 mGy. DLP: 907 mGy-cm. LIMITATIONS: None. FINDINGS: LOWER CHEST:. No significant interval changes. NON-CONTRASTED LIVER, SPLEEN, ADRENALS: Splenules, normal anatomic variant. Evaluation limited by la ck of IV contrast. No identified significant masses. PANCREAS: Fatty replacement of the head of the pancreas-uncinate process. No peripancreatic inflamma tory changes. GALLBLADDER: No identified stones by CT criteria. No inflammatory changes to suggest cholecystitis. RIGHT KIDNEY AND URETER: No suspicious masses. Assessment limited by lack of IV contrast. No signif icant calcifications. No hydronephrosis or hydroureter. LEFT KIDNEY AND URETER: No suspicious masses. Assessment limited by lack of IV contrast. No signifi cant calcifications. No hydronephrosis or hydroureter. AORTA AND RETROPERITONEUM: Atherosclerotic changes involving the abdominal aorta and branch vessels. No aneurysm. No retroperitoneal masses or adenopathy. BOWEL AND PERITONEAL CAVITY: Colonic diverticulosis without evidence of diverticulitis. No free flu id. APPENDIX: Not visualized. PELVIS, BLADDER, AND ABDOMINAL WALL: Bilateral total hip prostheses and neurostimulator catheter dev ice in the right gluteal soft tissues produce artifact limiting detail somewhat in the pelvic region. No free fluid. The urinary bladder is not well visualized. BONES: Degenerative and post surgical changes with hardware at multiple levels lumbar spine. OTHER: Small hiatal hernia. IMPRESSION: 1. Colonic diverticulosis without evidence of diverticulitis. 2. The examination of the pelvis is somewhat limited due to artifact from bilateral total hip prosth eses and neurostimulator catheter device in the right gluteal soft tissues. 3. Additional findings as above. COMMENT: Quality ID # [id number]: Final reports with documentation of one or more dose reduction techniques (e.g., Automated exposure control, adjustment of the mA and/or kV according to patient size, use of iterative reconstruction technique) TECHNICAL DOCUMENTATION: JOB ID: [id number] [employer]- All Rights Reserved Reading location - IP/workstation name: [email or web address]
[2018-11-25 10:20] LABS: ALANINE AMINOTRANSFERASE 27 U/L (9-52); ALBUMIN 4.7 g/dL (3.5-5.0); ALKALINE PHOSPHATASE 104 U/L (38-126); ANION GAP 14 (5-19); ASPARTATE AMINO TRANSFERASE 67 U/L (14-36); BILIRUBIN,DIRECT 0.4 mg/dL (0.0-0.4); BILIRUBIN,TOTAL 1.1 mg/dL (0.2-1.3); BLOOD UREA NITROGEN 19 mg/dL (7-20); CALCIUM 9.2 mg/dL (8.4-10.2); CARBON DIOXIDE 26 mmol/L (22-30); CHLORIDE 96 mmol/L (98-107); GLUCOSE 129 mg/dL (75-110); POTASSIUM 3.5 mmol/L (3.6-5.0); SODIUM 135.9 mmol/L (137-145); TOTAL PROTEIN 7.6 g/dL (6.3-8.2)
[2018-11-25] MEDS ORDERED: NORMAL SALINE 1000 ML 1,000 ML IV ONE (13:41)
[2018-11-25 15:26] LABS: APPEARANCE,URINE CLEAR; BILIRUBIN,URINE NEGATIVE (NEGATIVE); COLOR,URINE YELLOW; GLUCOSE, URINE NEGATIVE (NEGATIVE); KETONES,URINE NEGATIVE (NEGATIVE); LEUKOCYTE ESTERASE,URINE NEGATIVE (NEGATIVE); NITRITE,URINE NEGATIVE (NEGATIVE); PROTEIN,URINE NEGATIVE (NEGATIVE); URINE SPECIFIC GRAVITY 1.025
[2018-11-25 16:09] VITALS: BP 159/88
== END 2018-11-25 16:09 | disposition home or self-care (01) ==
LOC: ER 08:10
DX: K29.70 Gastritis, unspecified, without bleeding (principal); K57.30 Diverticulosis of large intestine without perforation or abscess without bleeding; R11.2 Nausea with vomiting, unspecified; R05 Cough; R09.81 Nasal congestion; J34.89 Other specified disorders of nose and nasal sinuses; I10 Essential (primary) hypertension; J45.909 Unspecified asthma, uncomplicated; Z88.8 Allergy status to other drugs, medicaments and biological substances; Z88.0 Allergy status to penicillin
CPT/HCPCS: 96376; 99284; 96361; 96374; 36415; 83690; 85025; 80053; 81001; 74176; J0780; J7030

== ENCOUNTER 2018-12-12 03:33 | Emergency (ER) | payer MEDICARE, OTHER ==
--- NOTE | 2018-12-12 04:27 | ER Document Report ---
ED General - General Chief Complaint: Pain With Urination Stated Complaint: URINATION PAIN Time Seen by Provider: 12/12/18 04:15 Primary Care Provider: JESSICA SINGH FNP [Primary Care Provider] - Follow up in 3-5 days TRAVEL OUTSIDE OF THE [place] IN LAST 30 DAYS: No - HPI Notes: Patient is a 73-year-old female that presents to the emergency department for chief complaint of dysuria Patient reports dysuria for the past 6 days. She states 6 days ago she was started on Levaquin by her primary care provider for acute urinary tract infection. She states the medication is not giving her any symptomatic relief. She reports painful urination and urinary frequency. She also has a lower back pain and lower abdominal pain. She describes it as achy and crampy. She is in pain management for chronic low back pain and is taking oxycodone which gives her some relief. She denies any associated fevers and chills. She denies any nausea, vomiting, diarrhea or constipation. Patient reports frequent urinary tract infections and history of bladder repair. She saw her urologist at [facility] who recommended another surgery but she is unsure if she wants to proceed with this plan of care. Past Medical History: Chronic low back pain Past Surgical History: Bladder surgery, bilateral hip replacements Social History: Denies tobacco and alcohol Family History: Reviewed and noncontributory for presenting illness Allergies: Reviewed, see documented allergy list. REVIEW OF SYSTEMS: CONSTITUTIONAL : No fever No chills No diaphoresis No recent illness EENT: No vision changes No congestion No sore throat CARDIOVASCULAR: No chest pain No palpitations RESPIRATORY: No shortness of breath No cough No difficulty breathing GASTROINTESTINAL: No abdominal pain No nausea No vomiting No diarrhea GENITOURINARY: dysuria No hematuria difficulty urinating MUSCULOSKELETAL: No back pain No leg pain No arm pain SKIN: No rashes No lesions LYMPHATIC: No swollen, enlarged glands. NEUROLOGICAL: No lightheadedness No headache No weakness No paresthesias PSYCHIATRIC: No anxiety No depression PHYSICAL EXAMINATION: Vital signs reviewed, nursing noted reviewed. GENERAL: Well-appearing, well-nourished and in no acute distress. HEAD: Atraumatic, normocephalic. EYES: Eyes appear normal, extraocular movements intact, sclera anicteric, conjunctiva are normal. ENT: nares patent, oropharynx clear without exudates. Moist mucous membranes. NECK: Normal range of motion, supple without lymphadenopathy LUNGS: Breath sounds clear to auscultation bilaterally and equal. No wheezes rales or rhonchi. HEART: Regular rate and rhythm without murmurs ABDOMEN: Soft, mild suprapubic tenderness, normoactive bowel sounds. No rebound, guarding, or rigidity. No masses appreciated. Back: no midline tenderness, full range of motion EXTREMITIES: Nontender, good range of motion, no pitting or edema. NEUROLOGICAL: No focal neurological deficits. Moves all extremities spontaneously Motor and sensory grossly intact on exam. PSYCH: Normal mood, normal affect. SKIN: Warm, Dry, normal turgor, no rashes or lesions noted on exposed skin - Related Data Allergies/Adverse Reactions: chlordiazepoxide HCl [From Librium] Allergy (Severe, Verified 11/25/18 08:13) diazepam [From Valium] Allergy (Severe, Verified 11/25/18 08:13) manic, increased b/p NSAIDS (Non-Steroidal Anti-Inflamma [Nsaids] Allergy (Severe, Verified 11/25/18 08:13) ulcers amoxicillin [From Augmentin] Allergy (Verified 11/25/18 08:13) clavulanic acid [From Augmentin] Allergy (Verified 11/25/18 08:13) Past Medical History - Social History Smoking Status: Unknown if Ever Smoked Frequency of alcohol use: None Drug Abuse: None Family History: Hypertension Patient has suicidal ideation: No Patient has homicidal ideation: No - Past Medical History Cardiac Medical History: Reports: Hx Hypercholesterolemia, Hx Hypertension Denies: Hx Coronary Artery Disease, Hx Heart Attack Pulmonary Medical History: Reports: Hx Asthma Denies: Hx Bronchitis, Hx COPD, Hx Pneumonia Neurological Medical History: Denies: Hx Cerebrovascular Accident, Hx Seizures Endocrine Medical History: Denies: Hx Diabetes Mellitus Type 1, Hx Diabetes Mellitus Type 2 Renal/ Medical History: Reports: Hx Kidney Stones. Denies: Hx Peritoneal Dialysis GI Medical History: Reports: Hx Diverticulitis, Hx Ulcer Musculoskeletal Medical History: Reports Hx Arthritis Psychiatric Medical History: Reports: Hx Depression - at times Past Surgical History: Reports: Hx Abdominal Surgery, Hx Genitourinary Surgery - Bladder surgery for incontinence 6 months ago, Hx Gynecologic Surgery - Ovarian cyst removal age 17, Hx Orthopedic Surgery - BILAT HIP REPLACEMENTS, L2-L4 - Immunizations Immunizations up to date: No Hx Diphtheria, Pertussis, Tetanus Vaccination: No Hx Pneumococcal Vaccination: 09/07/13 Physical Exam - Vital signs Vitals: Temp Pulse Resp BP Pulse Ox 98.1 F 90 18 132/72 H 96 12/12/18 03:34 12/12/18 03:34 12/12/18 03:34 12/12/18 03:34 12/12/18 03:34 Course - Re-evaluation Re-evalutation: 12/12/18 04:27 Vitals reviewed. Nursing notes reviewed. Patient's workup is consistent with acute urinary tract infection. She has no leukocytosis or sepsis. The remainder of her vital signs are stable. She is appropriate for further outpatient management. Her antibiotic will be changed from Levaquin to Macrobid. I do not have a urine culture available for comparison. Urine culture will be sent today. Patient encouraged to call her urologist for follow-up. She will return to the emergency room for new or worsening symptoms. She is stable at discharge. Laboratory 12/12/18 12/12/18 12/12/18 04:45 04:45 04:45 WBC 6.9 RBC 4.17 Hgb 12.7 Hct 37.5 MCV 90 MCH 30.5 MCHC 34.0 RDW 14.8 H Plt Count 164 Seg Neutrophils % 68.7 Lymphocytes % 18.7 Monocytes % 7.0 Eosinophils % 5.1 Basophils % 0.5 Absolute Neutrophils 4.7 Absolute Lymphocytes 1.3 Absolute Monocytes 0.5 Absolute Eosinophils 0.4 Absolute Basophils 0.0 Sodium 135.5 L Potassium 4.0 Chloride 98 Carbon Dioxide 28 Anion Gap 10 BUN 22 H Creatinine 0.87 Est GFR ( Amer) > 60 Est GFR (Non-Af Amer) > 60 Glucose 162 H Calcium 9.0 Urine Color GEOVANNA Urine Appearance SLIGHTLY-CLOUDY Urine pH 6.0 Ur Specific [place] 1.018 Urine Protein NEGATIVE Urine Glucose (UA) NEGATIVE Urine Ketones NEGATIVE Urine Blood NEGATIVE Urine Nitrite POSITIVE H Urine Bilirubin NEGATIVE Urine Urobilinogen NEGATIVE Ur Leukocyte Esterase MODERATE H Urine WBC (Auto) 52 Urine RBC (Auto) 1 Urine Bacteria (Auto) 3+ Urine WBC Clumps MANY Squamous Epi Cells Auto <1 Urine Mucus (Auto) OCC Urine Ascorbic Acid NEGATIVE - Vital Signs Vital signs: Temp Pulse Resp BP Pulse Ox 98.1 F 90 18 132/72 H 96 12/12/18 03:34 12/12/18 03:34 12/12/18 03:34 12/12/18 03:34 12/12/18 03:34 - Laboratory Result Diagrams: 12/12/18 04:45 12/12/18 04:45 Laboratory results interpreted by me: 12/12/18 12/12/18 12/12/18 04:45 04:45 04:45 RDW 14.8 H Sodium 135.5 L BUN 22 H Glucose 162 H Urine Nitrite POSITIVE H Ur Leukocyte Esterase MODERATE H Discharge - Discharge Clinical Impression: Acute UTI, Dysuria Condition: Stable Disposition: HOME, SELF-CARE Instructions: Urinary Tract Infection ([facility]) Additional Instructions: Please return to the emergency department if you have any worsening, or concern of your symptoms. Please return to the emergency department if you develop chest pain, difficulty breathing, severe abdominal pain, or ongoing vomiting. Please follow-up with your primary care physician in 2-3 days and any other recommended physicians. If prescribed, take all medications as directed. If you have any questions or concerns do not hesitate to return the emergency department for evaluation. Prescriptions: Nitrofurantoin Macrocrystal [Macrodantin] 100 mg PO BID #20 capsule Referrals: JESSICA SINGH FNP [Primary Care Provider] - Follow up in 3-5 days
[2018-12-12 05:11] LABS: ABSOLUTE EOSINOPHILS # (AUTO) 0.4 10^3/uL (0.0-0.6); ABSOLUTE LYMPHOCYTES (AUTO) 1.3 10^3/uL (0.5-4.7); ABSOLUTE MONOCYTES (AUTO) 0.5 10^3/uL (0.1-1.4); ABSOLUTE NEUT (AUTO) 4.7 10^3/uL (1.7-8.2); BASOPHILS % (AUTO) 0.5 % (0-2); EOSINOPHILS % (AUTO) 5.1 % (0-6); HEMATOCRIT 37.5 % (36.0-47.0); HEMOGLOBIN 12.7 g/dL (12.0-15.5); LYMPHOCYTES % (AUTO) 18.7 % (13-45); MEAN CORPUSCULAR HEMOGLOBIN 30.5 pg (27.0-33.4); MEAN CORPUSCULAR VOLUME 90 fl (80-97); PLATELET COUNT 164 10^3/uL (150-450); RED BLOOD COUNT 4.17 10^6/uL (3.72-5.28); RED CELL DISTRIBUTION WIDTH 14.8 % (11.5-14.0); SEGMENTED NEUTROPHILS % (AUTO) 68.7 % (42-78); TOTAL CELLS COUNTED % (AUTO) 100 %; WHITE BLOOD COUNT 6.9 10^3/uL (4.0-10.5)
[2018-12-12 05:25] LABS: ANION GAP 10 (5-19); BLOOD UREA NITROGEN 22 mg/dL (7-20); CARBON DIOXIDE 28 mmol/L (22-30); CHLORIDE 98 mmol/L (98-107); GLUCOSE 162 mg/dL (75-110); SODIUM 135.5 mmol/L (137-145)
[2018-12-12 05:28] LABS: APPEARANCE,URINE SLIGHTLY-CLOUDY; BILIRUBIN,URINE NEGATIVE (NEGATIVE); COLOR,URINE AMBER; GLUCOSE, URINE NEGATIVE (NEGATIVE); KETONES,URINE NEGATIVE (NEGATIVE); LEUKOCYTE ESTERASE,URINE MODERATE (NEGATIVE); NITRITE,URINE POSITIVE (NEGATIVE); PROTEIN,URINE NEGATIVE (NEGATIVE); URINE SPECIFIC GRAVITY 1.018; UROBILINOGEN,URINE NEGATIVE mg/dL (<2.0)
[2018-12-12] MEDS ORDERED: NITROFURANTOIN MONOHYD/M-CRYST 100 MG CAPSULE PO ONE (05:36)
[2018-12-12 06:02] VITALS: BP 107/58
== END 2018-12-12 06:04 | disposition home or self-care (01) ==
LOC: ER 03:33
DX: N39.0 Urinary tract infection, site not specified (principal); R30.0 Dysuria; R35.0 Frequency of micturition; M54.5 Low back pain; G89.29 Other chronic pain; Z79.899 Other long term (current) drug therapy; I10 Essential (primary) hypertension; J45.909 Unspecified asthma, uncomplicated
CPT/HCPCS: 99283; 51701; 36415; 87086; 85025; 87088; 80048; 81001; A9270; 87186; J8499

== ENCOUNTER 2019-01-16 12:15 | Emergency (ER) | payer MEDICARE, OTHER ==
--- NOTE | 2019-01-16 12:55 | ER Document Report ---
HPI - HPI Patient complains to provider of: Left ankle injury Time Seen by Provider: 01/16/19 12:33 Onset: This morning Onset/Duration: Sudden Quality of pain: Achy Pain Level: 4 Context: Patient states she was walking and felt a sudden crunch in her left ankle. Patient complains of persistent left medial ankle pain that radiates into the foot. Patient does have chronic pain medication that she takes regularly. Patient denies any other injuries. Associated Symptoms: Other - Left ankle pain Exacerbated by: Standing, Movement, Walking Relieved by: Denies Similar symptoms previously: Yes Recently seen / treated by doctor: No - ROS ROS below otherwise negative: Yes Systems Reviewed and Negative: Yes All other systems reviewed and negative - NEURO Neurology: DENIES: Weakness - CARDIOVASCULAR Cardiovascular: DENIES: Chest pain - GASTROINTESTINAL Gastrointestinal: DENIES: Nausea, Patient vomiting - MUSCULOSKELETAL Musculoskeletal: REPORTS: Extremity pain, Swelling - DERM Skin Color: Normal Skin Problems: None Past Medical History - General Information source: Patient - Social History Smoking Status: Never Smoker Frequency of alcohol use: None Drug Abuse: None Lives with: Spouse/Significant other Family History: Hypertension - Past Medical History Cardiac Medical History: Reports: Hx Hypercholesterolemia, Hx Hypertension Pulmonary Medical History: Reports: Hx Asthma Neurological Medical History: Denies: Hx Cerebrovascular Accident, Hx Seizures Renal/ Medical History: Reports: Hx Kidney Stones. Denies: Hx Peritoneal Dialysis GI Medical History: Reports: Hx Diverticulitis, Hx Ulcer Musculoskeletal Medical History: Reports Hx Arthritis Psychiatric Medical History: Reports: Hx Depression - at times Past Surgical History: Reports: Hx Abdominal Surgery, Hx Genitourinary Surgery - Bladder surgery for incontinence 6 months ago, Hx Gynecologic Surgery - Ovarian cyst removal age 17, Hx Orthopedic Surgery - BILAT HIP REPLACEMENTS, L2-L4 - Immunizations Immunizations up to date: No Hx Diphtheria, Pertussis, Tetanus Vaccination: No Hx Pneumococcal Vaccination: 09/07/13 Vertical Provider Document - CONSTITUTIONAL Agree With Documented VS: Yes Exam Limitations: No Limitations General Appearance: WD/WN, No Apparent Distress - INFECTION CONTROL TRAVEL OUTSIDE OF THE [place] IN LAST 30 DAYS: No - HEENT HEENT: Atraumatic, Normocephalic - NECK Neck: Normal Inspection - RESPIRATORY Respiratory: No Respiratory Distress - CARDIOVASCULAR Pulses: Normal: Dorsalis pedis - MUSCULOSKELETAL/EXTREMETIES Musculoskeletal/Extremeties: MAEW, Tender - Tenderness to medial aspect of left ankle with 1+ edema, tenderness extends into the midfoot area, no deformity or ecchymosis, Edema. negative: Eccymosis - NEURO Level of Consciousness: Awake, Alert, Appropriate Motor/Sensory: No Motor Deficit - DERM Integumentary: Warm, Dry, No Rash Course - Re-evaluation Re-evalutation: 01/16/19 13:46 Patient with no fracture noted to x-ray, will treat as sprain at this time. Patient does have a Rollator, cane, wheelchair, as well as walker that she may use at home to help with ambulation. Patient does have chronic narcotics that she takes daily. - Vital Signs Vital signs: Temp Pulse Resp BP Pulse Ox 98.4 F 64 18 100/48 L 94 01/16/19 12:28 01/16/19 12:28 01/16/19 12:28 01/16/19 12:28 01/16/19 12:28 - Diagnostic Test Radiology reviewed: Image reviewed, Reports reviewed Procedures - Immobilization Left Ankle Pre-Proc Neuro Vasc Exam: Normal Immobilizer type: Ankle stirrup Performed by: PCT Post-Proc Neuro Vasc Exam: Normal Alignment checked and good: Yes Discharge - Discharge Clinical Impression: Left ankle sprain Qualifiers: Encounter type: initial encounter Involved ligament of ankle: unspecified ligament Qualified Code(s): S93.402A - Sprain of unspecified ligament of left ankle, initial encounter Condition: Stable Disposition: HOME, SELF-CARE Instructions: Ankle Stirrup Splint ([facility]), Ice & Elevation ([facility]), Sprained Ankle ([facility]) Additional Instructions: Return immediately for any new or worsening symptoms Followup with your primary care provider, call tomorrow to make a followup appointment Weightbearing as tolerated to left ankle. Follow-up with orthopedics for any persistent pain or problems. Referrals: JESSICA SINGH FNP [Primary Care Provider] - Follow up as needed [facility] [Provider Group] - Follow up as needed
--- NOTE | 2019-01-16 13:42 | RADIOLOGY REPORT (SQ) ---
EXAM DESCRIPTION: FOOT LEFT COMPLETE COMPLETED DATE/TIME: 01/16/2019 1:33 pm REASON FOR STUDY: rolled ankle, felt crack COMPARISON: None. NUMBER OF VIEWS: Three views. TECHNIQUE: AP, lateral and oblique radiographic images acquired of the left foot. LIMITATIONS: None. FINDINGS: MINERALIZATION: Normal. BONES: No fracture or dislocation. Calcaneal spurs. JOINTS: No effusions. SOFT TISSUES: No soft tissue swelling. No foreign body. OTHER: No other significant finding. IMPRESSION: Calcaneal spurs. No acute abnormality. TECHNICAL DOCUMENTATION: JOB ID: [id number] [employer]- All Rights Reserved Reading location - IP/workstation name: [email or web address]
--- NOTE | 2019-01-16 13:43 | RADIOLOGY REPORT (SQ) ---
EXAM DESCRIPTION: ANKLE LEFT COMPLETE COMPLETED DATE/TIME: 01/16/2019 1:33 pm REASON FOR STUDY: rolled ankle, felt crack COMPARISON: None. NUMBER OF VIEWS: Three views. TECHNIQUE: AP, lateral, and oblique radiographic images acquired of the left ankle. LIMITATIONS: None. FINDINGS: MINERALIZATION: Normal. BONES: No acute fracture or dislocation. No worrisome bone lesions. JOINTS: No effusions. SOFT TISSUES: Medial soft tissue swelling. OTHER: No other significant finding. IMPRESSION: Medial soft tissue swelling. No fracture. TECHNICAL DOCUMENTATION: JOB ID: [id number] [employer]- All Rights Reserved Reading location - IP/workstation name: [email or web address]
[2019-01-16 14:10] VITALS: BP 105/77
== END 2019-01-16 14:07 | disposition home or self-care (01) ==
LOC: ER 12:15
PROC: 2W3RX1Z Immobilization of Left Lower Leg using Splint (ICD-10-PCS; principal; 2019-01-16)
DX: S99.912A Unspecified injury of left ankle, initial encounter (principal); M79.672 Pain in left foot; M25.572 Pain in left ankle and joints of left foot; M79.89 Other specified soft tissue disorders; G89.29 Other chronic pain; X58.XXXA Exposure to other specified factors, initial encounter; Z79.899 Other long term (current) drug therapy; I10 Essential (primary) hypertension; J45.909 Unspecified asthma, uncomplicated; S93.402A Sprain of unspecified ligament of left ankle, initial encounter
CPT/HCPCS: 99283; 73610; 73630; 29515; L1902

== ENCOUNTER 2019-03-06 12:36 | Emergency (ER) | payer MEDICARE, OTHER ==
--- NOTE | 2019-03-06 13:10 | ER Document Report ---
ED Medical Screen (RME) - General Chief Complaint: Swelling Stated Complaint: SWOLLEN ANKLES Time Seen by Provider: 03/06/19 13:04 Primary Care Provider: JESSICA SINGH FNP [Primary Care Provider] - Follow up as needed TRAVEL OUTSIDE OF THE [place] IN LAST 30 DAYS: No - HPI Notes: 03/06/19 13:09 Patient is a 73-year-old female with a history of hypertension, hypercholesterolemia, chronic pain who presents complaining of bilateral lower extremity swelling and bilateral hand swelling that she noticed developing over the past couple weeks. Patient states that she has had increased pain into her knees and ankles as well. She is otherwise eating and drinking without difficulty. She is urinating normally and having normal bowel movements aside from being constipated. No history of CHF, CKD, CAD. Denies NAIK, fever, neck pain, URI, CP, SOB, AGUIRRE, cough, Abd pain, dysuria, or rash. I have treated and performed a rapid initial assessment of this patient. A comprehensive ED assessment and evaluation of the patient, analysis of test results and completion of medical decision making process will be conducted by additional ED providers. PHYSICAL EXAMINATION: GENERAL: Well-appearing, well-nourished and in no acute distress. A&Ox4. Answers questions appropriately. LUNGS: Breath sounds clear to auscultation bilaterally and equal. No wheezes rales or rhonchi. HEART: Regular rate and rhythm without murmurs, rubs, gallops. Extremities: Trace pitting b/l LE's. Nereida neg. No LE asymmetry. NEUROLOGICAL: Normal speech, normal gait. PSYCH: Normal mood, normal affect. - Related Data Allergies/Adverse Reactions: chlordiazepoxide HCl [From Librium] Allergy (Severe, Verified 03/06/19 12:37) diazepam [From Valium] Allergy (Severe, Verified 03/06/19 12:37) manic, increased b/p NSAIDS (Non-Steroidal Anti-Inflamma [Nsaids] Allergy (Severe, Verified 03/06/19 12:37) ulcers amoxicillin [From Augmentin] Allergy (Verified 03/06/19 12:37) clavulanic acid [From Augmentin] Allergy (Verified 03/06/19 12:37) Past Medical History - Social History Frequency of alcohol use: None Drug Abuse: None - Past Medical History Cardiac Medical History: Reports: Hx Hypercholesterolemia, Hx Hypertension Denies: Hx Coronary Artery Disease, Hx Heart Attack Pulmonary Medical History: Reports: Hx Asthma Denies: Hx Bronchitis, Hx COPD, Hx Pneumonia Neurological Medical History: Denies: Hx Cerebrovascular Accident, Hx Seizures Endocrine Medical History: Denies: Hx Diabetes Mellitus Type 1, Hx Diabetes Mellitus Type 2 Renal/ Medical History: Reports: Hx Kidney Stones. Denies: Hx Peritoneal Dialysis GI Medical History: Reports: Hx Diverticulitis, Hx Ulcer Musculoskeltal Medical History: Reports Hx Arthritis Psychiatric Medical History: Reports: Hx Depression - at times Past Surgical History: Reports: Hx Abdominal Surgery, Hx Genitourinary Surgery - Bladder surgery for incontinence 6 months ago, Hx Gynecologic Surgery - Ovarian cyst removal age 17, Hx Orthopedic Surgery - BILAT HIP REPLACEMENTS, L2-L4 - Immunizations Immunizations up to date: No Hx Diphtheria, Pertussis, Tetanus Vaccination: No Physical Exam - Vital signs Vitals: Temp Pulse Resp BP Pulse Ox 97.8 F 66 18 138/63 H 99 03/06/19 12:45 03/06/19 12:45 03/06/19 12:45 03/06/19 12:45 03/06/19 12:45 Course - Vital Signs Vital signs: Temp Pulse Resp BP Pulse Ox 97.8 F 66 18 138/63 H 99 03/06/19 12:45 03/06/19 12:45 03/06/19 12:45 03/06/19 12:45 03/06/19 12:45 Doctor's Discharge - Discharge Referrals: JESSICA SINGH FNP [Primary Care Provider] - Follow up as needed
--- NOTE | 2019-03-06 13:57 | RADIOLOGY REPORT (SQ) ---
EXAM DESCRIPTION: CHEST SINGLE VIEW COMPLETED DATE/TIME: 03/06/2019 1:39 pm REASON FOR STUDY: LE b/l swelling COMPARISON: None. EXAM PARAMETERS: NUMBER OF VIEWS: One view. TECHNIQUE: Single frontal radiographic view of the chest acquired. RADIATION DOSE: NA LIMITATIONS: None. FINDINGS: LUNGS AND PLEURA: No opacities, masses or pneumothorax. No pleural effusion. MEDIASTINUM AND HILAR STRUCTURES: No masses. Contour normal. HEART AND VASCULAR STRUCTURES: Heart normal in size. Normal vasculature. BONES: No acute findings. HARDWARE: Neurostimulator electrodes in the thoracic spine. OTHER: No other significant finding. IMPRESSION: NO ACUTE RADIOGRAPHIC FINDING IN THE CHEST. TECHNICAL DOCUMENTATION: JOB ID: [id number] [employer]- All Rights Reserved Reading location - IP/workstation name: [email or web address]
[2019-03-06 14:05] LABS: ABSOLUTE EOSINOPHILS # (AUTO) 0.2 10^3/uL (0.0-0.6); ABSOLUTE LYMPHOCYTES (AUTO) 1.3 10^3/uL (0.5-4.7); ABSOLUTE MONOCYTES (AUTO) 0.4 10^3/uL (0.1-1.4); ABSOLUTE NEUT (AUTO) 3.8 10^3/uL (1.7-8.2); BASOPHILS % (AUTO) 0.5 % (0-2); EOSINOPHILS % (AUTO) 2.9 % (0-6); HEMATOCRIT 38.6 % (36.0-47.0); HEMOGLOBIN 12.8 g/dL (12.0-15.5); LYMPHOCYTES % (AUTO) 22.3 % (13-45); MEAN CORPUSCULAR HEMOGLOBIN 29.5 pg (27.0-33.4); MEAN CORPUSCULAR HGB CONC 33.3 g/dL (32.0-36.0); MEAN CORPUSCULAR VOLUME 89 fl (80-97); MONOCYTES % (AUTO) 6.7 % (3-13); PLATELET COUNT 156 10^3/uL (150-450); RED BLOOD COUNT 4.35 10^6/uL (3.72-5.28); RED CELL DISTRIBUTION WIDTH 15.5 % (11.5-14.0); SEGMENTED NEUTROPHILS % (AUTO) 67.6 % (42-78); TOTAL CELLS COUNTED % (AUTO) 100 %; WHITE BLOOD COUNT 5.6 10^3/uL (4.0-10.5)
[2019-03-06 14:31] LABS: ALANINE AMINOTRANSFERASE 30 U/L (9-52); ALBUMIN 4.4 g/dL (3.5-5.0); ALKALINE PHOSPHATASE 89 U/L (38-126); ANION GAP 12 (5-19); ASPARTATE AMINO TRANSFERASE 35 U/L (14-36); BILIRUBIN,DIRECT 0.3 mg/dL (0.0-0.4); BILIRUBIN,TOTAL 0.4 mg/dL (0.2-1.3); BLOOD UREA NITROGEN 25 mg/dL (7-20); CALCIUM 9.4 mg/dL (8.4-10.2); CARBON DIOXIDE 29 mmol/L (22-30); CHLORIDE 96 mmol/L (98-107); GLUCOSE 94 mg/dL (75-110); POTASSIUM 4.6 mmol/L (3.6-5.0); SODIUM 137.3 mmol/L (137-145); TOTAL PROTEIN 6.8 g/dL (6.3-8.2)
[2019-03-06] MEDS ORDERED: METHYLPREDNISOLONE ACETATE INJ 80 MG/1 ML VIAL IM ONE (15:25)
--- NOTE | 2019-03-06 15:25 | ER Document Report ---
ED General - General Chief Complaint: Swelling Stated Complaint: SWOLLEN ANKLES Time Seen by Provider: 03/06/19 13:04 Primary Care Provider: JESSICA ISNGH FNP [Primary Care Provider] - Follow up as needed Notes: Patient is a 73-year-old female with history of osteoarthritis that presents to the emergency department for chief complaint of knee and ankle swelling. Patient states that she has been having pain in her knees and ankles, and noticed that been more swollen over the past 2 days, she went to her pain management physician and saw the PA in a dose her with Toradol for her pain, she states it did help to a degree but her pain is still rather present today. She usually takes oxycodone at home, she is unable to take NSAIDs on a long-term basis. She has had 2 total hip replacements, states that she was told she needs her knees replaced, but has refused up until this point, and does not wish to pursue that any further. She currently rates her pain as a 5 out of 10 describes as a constant ache that is worse with walking. She denies noting any numbness, weakness or tingling, denies any redness or swelling in one leg over the other. She denies having any shortness of breath, chest pain or difficulty breathing. Past Medical History: MS, osteoarthritis, hypertension Past Surgical History: Bilateral total hip arthroplasty, lumbar fusion Social History: Denies tobacco, alcohol or drug use. Family History: Reviewed and noncontributory for presenting illness Allergies: Reviewed, see documented allergy list. REVIEW OF SYSTEMS: Other than noted above, the 12 point review of systems was reviewed with the patient and were negative, all pertinent findings are included in the HPI. PHYSICAL EXAMINATION: Vital signs reviewed, nursing noted reviewed. GENERAL: Elderly female, but in no acute distress HEAD: Atraumatic, normocephalic. EYES: Eyes appear normal, extraocular movements intact, sclera anicteric, conjunctiva are normal. ENT: nares patent, oropharynx clear without exudates. Moist mucous membranes. NECK: Normal range of motion, supple without lymphadenopathy LUNGS: Breath sounds clear to auscultation bilaterally and equal. No wheezes rales or rhonchi. HEART: Regular rate and rhythm without murmurs ABDOMEN: Soft, nontender, normoactive bowel sounds. No rebound, guarding, or rigidity. No masses appreciated. EXTREMITIES: Joint line tenderness of the knees bilaterally anteriorly, but good range of motion with flexion and extension of the knees, as well as at the hips bilaterally, there is mild swelling of the ankles bilaterally and mild tenderness to palpation of the joints, there is no calf tenderness or swelling, no erythema, there is no pitting edema. Good range of motion overall, patient noted to have arthrosis of the MCP joints in the DIP joints bilaterally of the hands bilaterally. NEUROLOGICAL: No focal neurological deficits. Moves all extremities spontaneously Motor and sensory grossly intact on exam. PSYCH: Normal mood, normal affect. SKIN: Warm, Dry, normal turgor, no rashes or lesions noted on exposed skin TRAVEL OUTSIDE OF THE [place] IN LAST 30 DAYS: No - Related Data Allergies/Adverse Reactions: chlordiazepoxide HCl [From Librium] Allergy (Severe, Verified 03/06/19 12:37) diazepam [From Valium] Allergy (Severe, Verified 03/06/19 12:37) manic, increased b/p NSAIDS (Non-Steroidal Anti-Inflamma [Nsaids] Allergy (Severe, Verified 03/06/19 12:37) ulcers amoxicillin [From Augmentin] Allergy (Verified 03/06/19 12:37) clavulanic acid [From Augmentin] Allergy (Verified 03/06/19 12:37) Past Medical History - Social History Smoking Status: Never Smoker Frequency of alcohol use: None Drug Abuse: None Family History: Hypertension Patient has suicidal ideation: No Patient has homicidal ideation: No - Past Medical History Cardiac Medical History: Reports: Hx Hypercholesterolemia, Hx Hypertension Denies: Hx Coronary Artery Disease, Hx Heart Attack Pulmonary Medical History: Reports: Hx Asthma Denies: Hx Bronchitis, Hx COPD, Hx Pneumonia Neurological Medical History: Denies: Hx Cerebrovascular Accident, Hx Seizures Endocrine Medical History: Denies: Hx Diabetes Mellitus Type 1, Hx Diabetes Mellitus Type 2 Renal/ Medical History: Reports: Hx Kidney Stones. Denies: Hx Peritoneal Dialysis GI Medical History: Reports: Hx Diverticulitis, Hx Ulcer Musculoskeletal Medical History: Reports Hx Arthritis Psychiatric Medical History: Reports: Hx Depression - at times Past Surgical History: Reports: Hx Abdominal Surgery, Hx Genitourinary Surgery - Bladder surgery for incontinence 6 months ago, Hx Gynecologic Surgery - Ovarian cyst removal age 17, Hx Orthopedic Surgery - BILAT HIP REPLACEMENTS, L2-L4 - Immunizations Immunizations up to date: No Hx Diphtheria, Pertussis, Tetanus Vaccination: No Hx Pneumococcal Vaccination: 09/07/13 Physical Exam - Vital signs Vitals: Temp Pulse Resp BP Pulse Ox 97.8 F 66 18 138/63 H 99 03/06/19 12:45 03/06/19 12:45 03/06/19 12:45 03/06/19 12:45 03/06/19 12:45 Course - Re-evaluation Re-evalutation: Patient seen and examined vital signs reviewed. Laboratory data and/or imaging were ordered as appropriate for the patient's presenting symptoms and complaint, with consideration of any critical or life threatening conditions that may be associated with their obtained history and exam as noted above. Patient was treated with IM Depo-Medrol 80 mg Results were reviewed when available and demonstrated unremarkable work-up, negative BNP, chest x-ray negative. The patient was re-evaluated and was stable Evaluation was most consistent with osteoarthritis flare, her exam was not consistent with any concern for DVT, there is no unilateral swelling, there is no pitting edema, legs appear quite equal on my exam, there is no calf tenderness. Results were discussed with the patient at this point, after careful consideration I feel that that patient can be discharged from the emergency department, the patient was educated treatments and reasons to return to the emergency department based on their presumed diagnosis as noted above, they were advised to followup with a primary care physician in 2-3 days. Patient was agreeable to plan of care. *Note is created using voice recognition software and may contain spelling, syn tax or grammatical errors. Laboratory 03/06/19 03/06/19 03/06/19 13:45 13:45 13:45 WBC 5.6 RBC 4.35 Hgb 12.8 Hct 38.6 MCV 89 MCH 29.5 MCHC 33.3 RDW 15.5 H Plt Count 156 Seg Neutrophils % 67.6 Lymphocytes % 22.3 Monocytes % 6.7 Eosinophils % 2.9 Basophils % 0.5 Absolute Neutrophils 3.8 Absolute Lymphocytes 1.3 Absolute Monocytes 0.4 Absolute Eosinophils 0.2 Absolute Basophils 0.0 Sodium 137.3 Potassium 4.6 Chloride 96 L Carbon Dioxide 29 Anion Gap 12 BUN 25 H Creatinine 0.92 Est GFR ( Amer) > 60 Est GFR (Non-Af Amer) > 60 Glucose 94 Calcium 9.4 Total Bilirubin 0.4 Direct Bilirubin 0.3 Neonat Total Bilirubin Not Reportable Neonat Direct Bilirubin Not Reportable Neonat Indirect Bili Not Reportable AST 35 ALT 30 Alkaline Phosphatase 89 NT-Pro-B Natriuret Pep 96 Total Protein 6.8 Albumin 4.4 Chest X-Ray 03/06/19 13:08 IMPRESSION: NO ACUTE RADIOGRAPHIC FINDING IN THE CHEST. - Vital Signs Vital signs: Temp Pulse Resp BP Pulse Ox 97.8 F 66 18 138/63 H 99 03/06/19 12:45 03/06/19 12:45 03/06/19 12:45 03/06/19 12:45 03/06/19 12:45 - Laboratory Result Diagrams: 03/06/19 13:45 03/06/19 13:45 Laboratory results interpreted by me: 03/06/19 03/06/19 13:45 13:45 RDW 15.5 H Chloride 96 L BUN 25 H Discharge - Discharge Clinical Impression: Knee pain, bilateral Qualifiers: Chronicity: unspecified Qualified Code(s): M25.561 - Pain in right knee; M25.562 - Pain in left knee Bilateral ankle pain Qualifiers: Chronicity: unspecified Qualified Code(s): M25.571 - Pain in right ankle and joints of right foot; M25.572 - Pain in left ankle and joints of left foot Condition: Stable Disposition: HOME, SELF-CARE Instructions: Arthritis ([facility]) Additional Instructions: Please follow-up with your primary care physician and pain management clinic, steroid given should start to improve your symptoms over the next 12 hours, and should last over the next 3 days, may benefit you to use a cane to help with walking as well, to relieve weight off of one knee or the other over the next several days as well. Referrals: JESSICA SINGH FNP [Primary Care Provider] - Follow up in 3-5 days
[2019-03-06 16:09] VITALS: BP 122/74
== END 2019-03-06 16:09 | disposition home or self-care (01) ==
LOC: ER 12:36
DX: M25.561 Pain in right knee (principal); M25.562 Pain in left knee; M25.571 Pain in right ankle and joints of right foot; M25.572 Pain in left ankle and joints of left foot; E78.00 Pure hypercholesterolemia, unspecified; I10 Essential (primary) hypertension; Z87.442 Personal history of urinary calculi; Z88.0 Allergy status to penicillin; Z98.1 Arthrodesis status; Z96.643 Presence of artificial hip joint, bilateral
CPT/HCPCS: 99283; 96372; 36415; 85025; 80053; 83880; 71045; J1040

== ENCOUNTER → 2019-07-25 | Outpatient (CLI) | payer MEDICARE, OTHER ==
--- NOTE | 2019-07-25 12:25 | WOMENS IMAGING REPORT ---
EXAM DESCRIPTION: 3D SCREENING MAMMO BILAT COMPLETED DATE/TIME: 07/25/2019 10:55 am REASON FOR STUDY: ROUTINE BILATERAL SCREENING;Z12.31 Z12.31 ENCNTR SCREEN MAMMOGRAM FOR MALIGNANT N EOPLASM OF ANNE COMPARISON: 07/11/2016 and 07/07/2015. EXAM PARAMETERS: Standard craniocaudal and mediolateral oblique views of each breast recorded using digital acquisition and breast tomosynthesis. Read with the assistance of CAD. .[facility] - [email or web address]er Tender Version 9.2 LIMITATIONS: None. FINDINGS: Findings present which are benign by mammographic criteria. No suspicious masses, calcific ations or architectural distortion. Pertinent benign findings: Benign calcifications. Benign mammographic findings may include one or more of the following: Smooth masses, popcorn/rim/coa rse calcifications, asymmetries, post-procedure changes, and lesions with long-standing stability. IMPRESSION: BENIGN MAMMOGRAPHIC FINDINGS. BIRADS 2 BREAST DENSITY: a. The breasts are almost entirely fatty. BIRAD: ASSESSMENT: 2 BENIGN FINDING(S) RECOMMENDATION: ROUTINE SCREENING COMMENT: The patient has been notified of the results by letter per [place] requirements. Additional no tification policies are in place for contacting patient with suspicious or incomplete findings. Quality ID #225: The [employer] recommends an annual screening mammogram for women aged 40 years or over. This facility utilizes a reminder system to ensure that all patients receive reminder letters, and/or direct phone calls for appointments. This includes reminders for routine scr eening mammograms, diagnostic mammograms, or other Breast Imaging Interventions when appropriate. Th is patient will be placed in the appropriate reminder system. TECHNICAL DOCUMENTATION: FINDING NUMBER: (1) ASSESSMENT: (1) JOB ID: [id number] [facility]- All Rights Reserved Reading location - IP/workstation name: [employer]-[facility]-RR
== END ==
LOC: WI 10:41
PROVIDERS: ATTEND Nurse Practitioner
DX: Z12.31 Encounter for screening mammogram for malignant neoplasm of breast (principal)
CPT/HCPCS: 77063; 77067

== ENCOUNTER 2019-10-06 10:16 | Emergency (ER) | payer MEDICARE, OTHER ==
--- NOTE | 2019-10-06 11:31 | ER Document Report ---
ED Medical Screen (RME) - General Chief Complaint: Nausea/Vomiting Stated Complaint: NAUSEA/VOMITING Time Seen by Provider: 10/06/19 11:22 Primary Care Provider: JESSICA SINGH FNP [Primary Care Provider] - Follow up as needed Mode of Arrival: Wheelchair Information source: Patient, Relative Notes: 74-year-old female with history of chronic back pain presents emergency department with story that on Sunday morning her found her on the ground. She reports she had taken Ambien. He reports that she had smeared jelly all over the mazariegos and she had guava paste on her body. He is not sure if she fell or she just fell asleep there. She reports since that time she has been nauseated her stomach is hurting. He reports she has been acting appropriately since that time. Patient does take Nucynta and Oxy for her chronic back pain. She reports she has had continuous nausea and her abdomen is hurting. I have greeted and performed a rapid initial assessment of this patient. A comprehensive ED assessment and evaluation of the patient, analysis of test results and completion of the medical decision making process will be conducted by additional ED providers. TRAVEL OUTSIDE OF THE [place] IN LAST 30 DAYS: No - Related Data Allergies/Adverse Reactions: chlordiazepoxide HCl [From Librium] Allergy (Severe, Verified 10/06/19 11:23) diazepam [From Valium] Allergy (Severe, Verified 10/06/19 11:23) manic, increased b/p NSAIDS (Non-Steroidal Anti-Inflamma [Nsaids] Allergy (Severe, Verified 10/06/19 11:23) ulcers amoxicillin [From Augmentin] Allergy (Verified 10/06/19 11:23) clavulanic acid [From Augmentin] Allergy (Verified 10/06/19 11:23) Past Medical History - Past Medical History Cardiac Medical History: Reports: Hx Hypercholesterolemia, Hx Hypertension Denies: Hx Coronary Artery Disease, Hx Heart Attack Pulmonary Medical History: Reports: Hx Asthma Denies: Hx Bronchitis, Hx COPD, Hx Pneumonia Neurological Medical History: Denies: Hx Cerebrovascular Accident, Hx Seizures Endocrine Medical History: Denies: Hx Diabetes Mellitus Type 1, Hx Diabetes Mellitus Type 2 Renal/ Medical History: Reports: Hx Kidney Stones. Denies: Hx Peritoneal Dialysis GI Medical History: Reports: Hx Diverticulitis, Hx Ulcer Musculoskeltal Medical History: Reports Hx Arthritis Psychiatric Medical History: Reports: Hx Depression - at times Past Surgical History: Reports: Hx Abdominal Surgery, Hx Genitourinary Surgery - Bladder surgery for incontinence 6 months ago, Hx Gynecologic Surgery - Ovarian cyst removal age 17, Hx Orthopedic Surgery - BILAT HIP REPLACEMENTS, L2-L4 - Immunizations Immunizations up to date: No Hx Diphtheria, Pertussis, Tetanus Vaccination: No Physical Exam - Vital signs Vitals: Temp Pulse Resp BP Pulse Ox 98.3 F 69 16 124/74 96 10/06/19 10:31 10/06/19 10:31 10/06/19 10:31 10/06/19 10:31 10/06/19 10:31 Course - Vital Signs Vital signs: Temp Pulse Resp BP Pulse Ox 98.3 F 69 16 124/74 96 10/06/19 10:31 10/06/19 10:31 10/06/19 10:31 10/06/19 10:31 10/06/19 10:31 Doctor's Discharge - Discharge Referrals: JESSICA SINGH FNP [Primary Care Provider] - Follow up as needed
[2019-10-06 12:35] LABS: ABSOLUTE EOSINOPHILS # (AUTO) 0.3 10^3/uL (0.0-0.6); ABSOLUTE LYMPHOCYTES (AUTO) 1.5 10^3/uL (0.5-4.7); ABSOLUTE MONOCYTES (AUTO) 0.5 10^3/uL (0.1-1.4); ABSOLUTE NEUT (AUTO) 4.7 10^3/uL (1.7-8.2); BASOPHILS % (AUTO) 0.4 % (0-2); EOSINOPHILS % (AUTO) 3.9 % (0-6); HEMATOCRIT 41.2 % (36.0-47.0); HEMOGLOBIN 13.8 g/dL (12.0-15.5); LYMPHOCYTES % (AUTO) 21.8 % (13-45); MEAN CORPUSCULAR HEMOGLOBIN 30.3 pg (27.0-33.4); MEAN CORPUSCULAR HGB CONC 33.6 g/dL (32.0-36.0); MEAN CORPUSCULAR VOLUME 90 fl (80-97); MONOCYTES % (AUTO) 6.8 % (3-13); PLATELET COUNT 157 10^3/uL (150-450); RED BLOOD COUNT 4.57 10^6/uL (3.72-5.28); RED CELL DISTRIBUTION WIDTH 14.7 % (11.5-14.0); SEGMENTED NEUTROPHILS % (AUTO) 67.1 % (42-78); TOTAL CELLS COUNTED % (AUTO) 100 %
[2019-10-06 12:55] LABS: ALBUMIN 4.7 g/dL (3.5-5.0); ALKALINE PHOSPHATASE 84 U/L (38-126); ANION GAP 13 (5-19); ASPARTATE AMINO TRANSFERASE 57 U/L (14-36); BILIRUBIN,DIRECT 0.3 mg/dL (0.0-0.4); BILIRUBIN,TOTAL 0.6 mg/dL (0.2-1.3); BLOOD UREA NITROGEN 20 mg/dL (7-20); CALCIUM 10.1 mg/dL (8.4-10.2); CARBON DIOXIDE 27 mmol/L (22-30); CHLORIDE 96 mmol/L (98-107); GLUCOSE 114 mg/dL (75-110); POTASSIUM 4.3 mmol/L (3.6-5.0); TOTAL PROTEIN 7.8 g/dL (6.3-8.2)
--- NOTE | 2019-10-06 13:19 | RADIOLOGY REPORT (SQ) ---
EXAM DESCRIPTION: CT HEAD WITHOUT COMPLETED DATE/TIME: 10/06/2019 12:46 pm REASON FOR STUDY: NAIK, Fall COMPARISON: 03/10/2015. TECHNIQUE: Axial images acquired through the brain without intravenous contrast. Images reviewed wi th bone, brain and subdural windows. Additional sagittal and coronal reconstructions were generated. Images stored on PACS. All CT scanners at this facility use dose modulation, iterative reconstruction, and/or weight based d osing when appropriate to reduce radiation dose to as low as reasonably achievable (ALARA). [facility]: Dose Right [facility]: CareDose [facility]: Dose Right [facility]: Teradose 4D [facility]: Swoodoo RADIATION DOSE: CT Rad equipment meets quality standard of care and radiation dose reduction techniq ues were employed. CTDIvol: 53.2 mGy. DLP: 1044 mGy-cm.mGy. LIMITATIONS: None. FINDINGS: VENTRICLES: Prominent. CEREBRUM: No masses. No hemorrhage. No midline shift. Areas of low density in the white matter mos t likely due to chronic micro-vascular ischemic change. No evidence for acute infarction. CEREBELLUM: No masses. No hemorrhage. No alteration of density. No evidence for acute infarction. EXTRAAXIAL SPACES: Age-related involutional change. No fluid collections. No masses. ORBITS AND GLOBE: No intra- or extraconal masses. Normal contour of globe without masses. CALVARIUM: No fracture. PARANASAL SINUSES: No fluid or mucosal thickening. SOFT TISSUES: No mass or hematoma. OTHER: No other significant finding. IMPRESSION: CHRONIC CHANGES OF ATROPHY AND MICROVASCULAR ISCHEMIA. NO ACUTE PROCESS. EVIDENCE OF ACUTE STROKE: NO. TECHNICAL DOCUMENTATION: JOB ID: [id number] Quality ID # [id number]: Final reports with documentation of one or more dose reduction techniques (e.g., Au tomated exposure control, adjustment of the mA and/or kV according to patient size, use of iterative reconstruction technique) 2010 [email or web address]- All Rights Reserved Reading location - IP/workstation name: [email or web address]
[2019-10-06] MEDS ORDERED: DIPHENHYDRAMINE HCL 50 MG/ML VIAL IV ONE (13:58)
[2019-10-06] MEDS ORDERED: PROCHLORPERAZINE EDISYLATE INJ 10 MG/2 ML VIAL IV ONE (13:58)
[2019-10-06] MEDS ORDERED: RINGERS SOLUTION,LACTATED 1,000 ML IV ONE (13:58)
--- NOTE | 2019-10-06 14:03 | ER Document Report ---
ED General - General Chief Complaint: Headache Stated Complaint: NAUSEA/VOMITING Time Seen by Provider: 10/06/19 11:22 Primary Care Provider: JESSICA SINGH FNP [Primary Care Provider] - Follow up as needed Mode of Arrival: Wheelchair TRAVEL OUTSIDE OF THE [place] IN LAST 30 DAYS: No - HPI Notes: Patient presents after falling on Sunday night patient was found by on the floor at their home. She had taken Ambien earlier that day but she has been taking it for several years. She had smeared food on the mazariegos. Since that time she is been having a headache and nonspecific nausea with intermittent abdominal pain. No dizziness or vertigo. No recent cough congestion fevers chest pain or shortness of breath. No history of heart attack or stroke. She is passing gas has not had any vomiting no black or red stool - Related Data Allergies/Adverse Reactions: chlordiazepoxide HCl [From Librium] Allergy (Severe, Verified 10/06/19 11:23) diazepam [From Valium] Allergy (Severe, Verified 10/06/19 11:23) manic, increased b/p NSAIDS (Non-Steroidal Anti-Inflamma [Nsaids] Allergy (Severe, Verified 10/06/19 11:23) ulcers amoxicillin [From Augmentin] Allergy (Verified 10/06/19 11:23) clavulanic acid [From Augmentin] Allergy (Verified 10/06/19 11:23) Past Medical History - General Information source: Patient, Relative - Social History Smoking Status: Former Smoker Family History: Hypertension Patient has suicidal ideation: No Patient has homicidal ideation: No - Past Medical History Cardiac Medical History: Reports: Hx Hypercholesterolemia, Hx Hypertension Denies: Hx Coronary Artery Disease, Hx Heart Attack Pulmonary Medical History: Reports: Hx Asthma Denies: Hx Bronchitis, Hx COPD, Hx Pneumonia Neurological Medical History: Denies: Hx Cerebrovascular Accident, Hx Seizures Endocrine Medical History: Denies: Hx Diabetes Mellitus Type 1, Hx Diabetes Mellitus Type 2 Renal/ Medical History: Reports: Hx Kidney Stones. Denies: Hx Peritoneal Dialysis GI Medical History: Reports: Hx Diverticulitis, Hx Ulcer Musculoskeletal Medical History: Reports Hx Arthritis Psychiatric Medical History: Reports: Hx Depression - at times Past Surgical History: Reports: Hx Abdominal Surgery, Hx Genitourinary Surgery - Bladder surgery for incontinence 6 months ago, Hx Gynecologic Surgery - Ovarian cyst removal age 17, Hx Orthopedic Surgery - BILAT HIP REPLACEMENTS, L2-L4 - Immunizations Immunizations up to date: No Hx Diphtheria, Pertussis, Tetanus Vaccination: No Hx Pneumococcal Vaccination: 09/07/13 Review of Systems - Review of Systems Constitutional: No symptoms reported EENT: No symptoms reported Cardiovascular: No symptoms reported Respiratory: No symptoms reported Gastrointestinal: See HPI Genitourinary: No symptoms reported Female Genitourinary: No symptoms reported Musculoskeletal: No symptoms reported Skin: No symptoms reported Hematologic/Lymphatic: No symptoms reported Neurological/Psychological: See HPI Physical Exam - Vital signs Vitals: Temp Pulse Resp BP Pulse Ox 98.3 F 69 16 124/74 96 10/06/19 10:31 10/06/19 10:31 10/06/19 10:31 10/06/19 10:31 10/06/19 10:31 - General General appearance: Appears well, Alert - HEENT Head: Normocephalic, Atraumatic - Respiratory Respiratory status: No respiratory distress Chest status: Nontender Breath sounds: Normal - Cardiovascular Rhythm: Regular Heart sounds: Normal auscultation Murmur: No - Abdominal Inspection: Normal Distension: No distension Bowel sounds: Normal Tenderness: Other - Mild diffuse tenderness - Extremities General upper extremity: Normal inspection, Normal strength General lower extremity: Normal inspection, Normal strength - Psychological Associated symptoms: Normal affect Course - Re-evaluation Re-evalutation: 10/06/19 14:02 Patient experiencing headache nonspecific nausea and also intermittent abdominal pain which is diffuse. She was found down after she had smeared food on a wall on Sunday. CT of her head shows NAD. CT abdomen pelvis rule out other acute pathologies. 10/06/19 14:06 10/06/19 15:27 CT abdomen pelvis shows no acute abnormalities. Patient symptoms did not start until after she was found to the ground on Sunday night. I feel like her symptoms are consistent with concussion in terms of nausea with headache. The Compazine Benadryl cocktail did help her headache. Will provide outpatient Compazine orally. In regards to her abdominal discomfort there has been a lot of nausea vomiting diarrhea in this area lately I did discuss if her symptoms were to worsen or she begins to have intractable vomiting or diarrhea with any black or red stool or vomitus or fevers to return for prompt reevaluation - Vital Signs Vital signs: Temp Pulse Resp BP Pulse Ox 98.3 F 69 16 124/74 96 10/06/19 10:31 10/06/19 10:31 10/06/19 10:31 10/06/19 10:31 10/06/19 10:31 - Laboratory Result Diagrams: 10/06/19 12:15 10/06/19 12:15 Laboratory results interpreted by me: 10/06/19 10/06/19 12:15 12:15 RDW 14.7 H Sodium 136.3 L Chloride 96 L Est GFR (MDRD) Non-Af 55 L Glucose 114 H AST 57 H Discharge - Discharge Clinical Impression: Nausea, Aminal cramping Headache Qualifiers: Headache type: unspecified Headache chronicity pattern: unspecified pattern Intractability: not intractable Qualified Code(s): R51 - Headache Condition: Good Disposition: HOME, SELF-CARE Instructions: Antinausea Medication ([facility]), Headache ([facility]), Abdominal Pain ([facility]) Prescriptions: Prochlorperazine Maleate [Compazine 10 mg Tablet] 10 mg PO ASDIR PRN #20 tablet PRN Reason: Referrals: JESSICA SINGH FNP [Primary Care Provider] - Follow up as needed
--- NOTE | 2019-10-06 14:33 | RADIOLOGY REPORT (SQ) ---
EXAM DESCRIPTION: CT ABD/PELVIS NO ORAL OR IV COMPLETED DATE/TIME: 10/06/2019 2:11 pm REASON FOR STUDY: nausea / abd pain COMPARISON: 11/25/2018. TECHNIQUE: CT scan of the abdomen and pelvis performed without intravenous or oral contrast. Images reviewed with lung, soft tissue, and bone windows. Reconstructed coronal and sagittal MPR images revi ewed. All images stored on PACS. All CT scanners at this facility use dose modulation, iterative reconstruction, and/or weight based d osing when appropriate to reduce radiation dose to as low as reasonably achievable (ALARA). [facility]: Dose Right [facility]: CareDose [facility]: Dose Right [facility]: Teradose 4D [facility]: [employer] RADIATION DOSE: CT Rad equipment meets quality standard of care and radiation dose reduction techniq ues were employed. CTDIvol: 17.4 mGy. DLP: 924 mGy-cm.mGy. LIMITATIONS: Streak artifact from hardware in the spine and hips. FINDINGS: LOWER CHEST: No significant findings. No nodules or infiltrates. NON-CONTRASTED LIVER, SPLEEN, ADRENALS: Evaluation limited by lack of IV contrast. No identified sign ificant masses. PANCREAS: No masses. No peripancreatic inflammatory changes. GALLBLADDER: No identified stones by CT criteria. No inflammatory changes to suggest cholecystitis. RIGHT KIDNEY AND URETER: No suspicious masses. Assessment limited by lack of IV contrast. No signif icant calcifications. No hydronephrosis or hydroureter. LEFT KIDNEY AND URETER: No suspicious masses. Assessment limited by lack of IV contrast. No signifi cant calcifications. No hydronephrosis or hydroureter. AORTA AND RETROPERITONEUM: No aneurysm. No retroperitoneal masses or adenopathy. BOWEL AND PERITONEAL CAVITY: There are few scattered colonic diverticuli. No obvious masses or infla mmatory changes. No free fluid. APPENDIX: Surgically absent. PELVIS, BLADDER, AND ABDOMINAL WALL:No abnormal masses. No free fluid. Bladder normal. BONES: Degenerative changes and surgical changes in the spine. Spinal hardware including spinal stim ulator. Bilateral hip prostheses. OTHER: No other significant finding. IMPRESSION: MILD COLONIC DIVERTICULOSIS. NO CT FINDINGS OF DIVERTICULITIS. SURGICAL CHANGES. OTHE RWISE NO SIGNIFICANT OR ACUTE PROCESS IN THE ABDOMEN OR PELVIS. COMMENT: Quality ID # [id number]: Final reports with documentation of one or more dose reduction techniques (e.g., Automated exposure control, adjustment of the mA and/or kV according to patient size, use of iterative reconstruction technique) TECHNICAL DOCUMENTATION: JOB ID: [id number] [employer]- All Rights Reserved Reading location - IP/workstation name: [email or web address]
[2019-10-06 16:10] VITALS: BP 127/65
== END 2019-10-06 16:10 | disposition home or self-care (01) ==
LOC: ER 10:16
DX: R51 Headache (principal); R11.0 Nausea; R10.84 Generalized abdominal pain; W19.XXXA Unspecified fall, initial encounter; I10 Essential (primary) hypertension; J45.909 Unspecified asthma, uncomplicated; Z87.891 Personal history of nicotine dependence; Z79.899 Other long term (current) drug therapy; Z88.8 Allergy status to other drugs, medicaments and biological substances; Z88.0 Allergy status to penicillin
CPT/HCPCS: 99284; 96361; 96374; 96375; 36415; 83690; 85025; 80053; 70450; 74176; J1200; J0780; J7120

== ENCOUNTER 2020-07-31 09:52 | Observation (INO) | payer MEDICARE, OTHER ==
[2020-07-31] MEDS ORDERED: NORMAL SALINE 1000 ML 1,000 ML IV ONE (10:46)
[2020-07-31] MEDS ORDERED: ONDANSETRON HCL INJ/PF 4 MG/2 ML SDV IV ONE ×2 (10:46→16:37)
--- NOTE | 2020-07-31 11:50 | RADIOLOGY REPORT (SQ) ---
EXAM DESCRIPTION: ABDOMEN 2 VIEWS IMAGES COMPLETED DATE/TIME: 07/31/2020 11:38 am REASON FOR STUDY: NAUSEA AND VOMITING COMPARISON: None. NUMBER OF VIEWS: Two views. TECHNIQUE: Supine and erect/decubitus radiographic images of the abdomen acquired. LIMITATIONS: None. FINDINGS: FREE AIR: None. No abnormal gas collections. LUNG BASES: Clear. BOWEL GAS PATTERN: Nonobstructive pattern. No dilated loops or air fluid levels. CALCIFICATIONS: No suspicious calcifications. SOFT TISSUES: No gross mass or suggestion of organomegaly. HARDWARE: Spine and hip hardware. BONES: No acute fracture. No worrisome bone lesions. OTHER: No other significant finding. IMPRESSION: NO RADIOGRAPHIC EVIDENCE FOR ACUTE ABDOMINAL DISEASE. TECHNICAL DOCUMENTATION: JOB ID: [id number] 2010 [employer]- All Rights Reserved Reading location - IP/workstation name: [email or web address]
--- NOTE | 2020-07-31 11:58 | ER Document Report ---
ED GI/ - General Chief Complaint: Nausea/Vomiting Stated Complaint: FEVER,NAUSEA,VOMITING Time Seen by Provider: 07/31/20 10:20 Primary Care Provider: WESTLEY SHINE PA-C [Primary Care Provider] - Follow up as needed Mode of Arrival: Ambulatory Information source: Patient Notes: This 74-year-old woman presents to the emergency department with a complaint of nausea and vomiting with diarrhea that has been ongoing for approximately 6 days now. She states that she had an episode of vomiting approximately 3 AM this morning after drinking some tea and eating toast. She was seen at an outpatient clinic ([facility]) yesterday, received IV fluids, labs and an x-ray. This morning she returned to the clinic and was told that she needed to come to the emergency department for further evaluation and treatment. TRAVEL OUTSIDE OF THE [place] IN LAST 30 DAYS: No - Related Data Allergies/Adverse Reactions: chlordiazepoxide HCl [From Librium] Allergy (Severe, Verified 10/06/19 11:23) diazepam [From Valium] Allergy (Severe, Verified 10/06/19 11:23) manic, increased b/p NSAIDS (Non-Steroidal Anti-Inflamma [Nsaids] Allergy (Severe, Verified 10/06/19 11:23) ulcers clavulanic acid [From Augmentin] Allergy (Verified 10/06/19 11:23) Past Medical History - Social History Smoking Status: Unknown if Ever Smoked Chew tobacco use (# tins/day): No Frequency of alcohol use: None Drug Abuse: None Family History: Hypertension Patient has homicidal ideation: No - Past Medical History Cardiac Medical History: Reports: Hx Hypercholesterolemia, Hx Hypertension Denies: Hx Coronary Artery Disease, Hx Heart Attack Pulmonary Medical History: Reports: Hx Asthma Denies: Hx Bronchitis, Hx COPD, Hx Pneumonia Neurological Medical History: Denies: Hx Cerebrovascular Accident, Hx Seizures Endocrine Medical History: Denies: Hx Diabetes Mellitus Type 1, Hx Diabetes Mellitus Type 2 Renal/ Medical History: Reports: Hx Kidney Stones. Denies: Hx Peritoneal Dialysis GI Medical History: Reports: Hx Diverticulitis, Hx Ulcer Musculoskeletal Medical History: Reports Hx Arthritis Psychiatric Medical History: Reports: Hx Depression - at times Past Surgical History: Reports: Hx Abdominal Surgery, Hx Genitourinary Surgery - Bladder surgery for incontinence 6 months ago, Hx Gynecologic Surgery - Ovarian cyst removal age 17, Hx Orthopedic Surgery - BILAT HIP REPLACEMENTS, L2-L4 - Immunizations Immunizations up to date: No Hx Diphtheria, Pertussis, Tetanus Vaccination: No Hx Pneumococcal Vaccination: 09/07/13 Review of Systems - Review of Systems Notes: Constitutional: Negative for fever. HENT: Negative for sore throat. Eyes: Negative for visual changes. Cardiovascular: Negative for chest pain. Respiratory: Negative for shortness of breath. Gastrointestinal: See HPI Genitourinary: Negative for dysuria. Musculoskeletal: Negative for back pain. Skin: Negative for rash. Neurological: Negative for headaches, weakness or numbness. 10 point ROS negative except as marked above and in HPI. Physical Exam - Vital signs Vitals: Temp 98.0 F 07/31/20 09:53 - Notes Notes: PHYSICAL EXAMINATION: Physical Exam: General: Obese female in no acute distress HEENT: NC/AT, pupils equal round and reactive to light, MM moist,nares clear, oropharynx clear, airway patent Neck: supple, no adenopathy, no masses. Good range of motion Lungs: clear, no wheezing, no rales no rhonchi CVS: Regular rate and rhythm no murmur gallop or rub Abdomen: Soft, active, periumbilical and mid abdominal tenderness, no guarding, no rebound, no masses Ext: No edema, clubbing or cyanosis. Neuro: Alert and responsive, moving all 4 extremities on command, cranial nerves intact, no focal findings Skin: Intact no open lesions, no rash PSYCH: Normal mood, normal affect. Course - Re-evaluation Re-evalutation: 07/31/20 16:35 Patient seen in the emergency department with nausea and vomiting and GI symptoms for approximately 6 days. She has an elevated WBC count and CT scan which reveals colitis. Patient is given IV Zosyn, antiemetic medication and will be admitted to the hospital for further evaluation and treatment. , the hospitalist was called and the patient is going be brought in as observation for symptom management and antibiotics. - Vital Signs Vital signs: Temp Pulse Resp BP Pulse Ox 98.0 F 71 22 H 168/80 H 96 07/31/20 14:30 07/31/20 14:30 07/31/20 14:30 07/31/20 14:30 07/31/20 14:30 - Laboratory Result Diagrams: 07/31/20 12:44 07/31/20 12:44 Laboratory results interpreted by me: 07/31/20 07/31/20 07/31/20 12:30 12:44 12:44 WBC 13.6 H RDW 15.3 H Absolute Neuts (auto) 10.6 H Seg Neutrophils % 78.2 H Sodium 136.6 L Potassium 3.2 L Chloride 97 L BUN 23 H Glucose 129 H AST 53 H ALT 50 H Urine Protein 30 H Leukocyte Esterase Rfl LARGE H Urine Ascorbic Acid 20 H I have reviewed laboratory data and used this information for the treatment decisions regarding the patient. - Diagnostic Test Radiology reviewed: Image reviewed, Reports reviewed Radiology results interpreted by me: 07/31/20 16:37 Abdomen X-Ray 07/31/20 10:47 IMPRESSION: NO RADIOGRAPHIC EVIDENCE FOR ACUTE ABDOMINAL DISEASE. Abdomen/Pelvis CT 07/31/20 14:57 IMPRESSION: Findings suggesting colitis of the transverse colon which may be infectious, inflammatory, or ischemic. Sigmoid diverticulosis without CT evidence for diverticulitis. Discharge - Discharge Clinical Impression: Colitis Nausea and vomiting Qualifiers: Vomiting type: unspecified Vomiting Intractability: unspecified Qualified Code(s): R11.2 - Nausea with vomiting, unspecified Abdominal pain Qualifiers: Abdominal location: unspecified location Qualified Code(s): R10.9 - Unspecified abdominal pain Condition: Good Disposition: ADMITTED OBSERVATION Admitting Provider: Helen (Hospitalist) Unit Admitted: Medical Floor Referrals: WESTLEY SHINE PA-C [Primary Care Provider] - Follow up as needed
[2020-07-31 12:59] LABS: ABSOLUTE LYMPHOCYTES (AUTO) 2.1 10^3/uL (0.5-4.7); ABSOLUTE MONOCYTES (AUTO) 0.8 10^3/uL (0.1-1.4); ABSOLUTE NEUT (AUTO) 10.6 10^3/uL (1.7-8.2); BASOPHILS % (AUTO) 0.3 % (0-2); EOSINOPHILS % (AUTO) 0.1 % (0-6); HEMATOCRIT 44.9 % (36.0-47.0); HEMOGLOBIN 15.3 g/dL (12.0-15.5); LYMPHOCYTES % (AUTO) 15.4 % (13-45); MEAN CORPUSCULAR HEMOGLOBIN 30.7 pg (27.0-33.4); MEAN CORPUSCULAR HGB CONC 34.1 g/dL (32.0-36.0); MEAN CORPUSCULAR VOLUME 90 fl (80-97); PLATELET COUNT 229 10^3/uL (150-450); RED CELL DISTRIBUTION WIDTH 15.3 % (11.5-14.0); SEGMENTED NEUTROPHILS % (AUTO) 78.2 % (42-78); TOTAL CELLS COUNTED % (AUTO) 100 %; WHITE BLOOD COUNT 13.6 10^3/uL (4.0-10.5)
[2020-07-31 13:12] LABS: APPEARANCE,URINE CLOUDY; BILIRUBIN,URINE NEGATIVE (NEGATIVE); COLOR,URINE AMBER; GLUCOSE, URINE NEGATIVE (NEGATIVE); KETONES,URINE NEGATIVE (NEGATIVE); PROTEIN,URINE 30 mg/dL (NEGATIVE); URINE SPECIFIC GRAVITY 1.025; UROBILINOGEN,URINE NEGATIVE mg/dL (<2.0)
[2020-07-31 13:20] LABS: ALBUMIN 4.5 g/dL (3.5-5.0); ALKALINE PHOSPHATASE 85 U/L (38-126); ANION GAP 13 (5-19); ASPARTATE AMINO TRANSFERASE 53 U/L (14-36); BILIRUBIN,DIRECT 0.4 mg/dL (0.0-0.4); BILIRUBIN,TOTAL 0.8 mg/dL (0.2-1.3); BLOOD UREA NITROGEN 23 mg/dL (7-20); CALCIUM 9.7 mg/dL (8.4-10.2); CARBON DIOXIDE 27 mmol/L (22-30); CHLORIDE 97 mmol/L (98-107); GLUCOSE 129 mg/dL (75-110); POTASSIUM 3.2 mmol/L (3.6-5.0); TOTAL PROTEIN 7.2 g/dL (6.3-8.2)
--- NOTE | 2020-07-31 16:20 | RADIOLOGY REPORT (SQ) ---
EXAM DESCRIPTION: CT ABD/PELVIS WITH IV ONLY IMAGES COMPLETED DATE/TIME: 07/31/2020 3:35 pm REASON FOR STUDY: Periumbilical abdominal pain COMPARISON: None. TECHNIQUE: CT scan of the abdomen and pelvis performed using helical scanning technique with dynamic intravenous contrast injection. No oral contrast. Images reviewed with lung, soft tissue, and bone windows. Reconstructed coronal and sagittal MPR images reviewed. Delayed images for evaluation of the urinary system also acquired. All images stored on PACS. All CT scanners at this facility use dose modulation, iterative reconstruction, and/or weight based d osing when appropriate to reduce radiation dose to as low as reasonably achievable (ALARA). [facility]: Dose Right [facility]: CareDose [facility]: Dose Right [facility]: Teradose 4D [facility]: [employer] CONTRAST TYPE AND DOSE: contrast/concentration: Isovue 350.00 mmol/ml; Total Contrast Delivered: 100 .0 ml; Total Saline Delivered: 30.5 ml RENAL FUNCTION: BUN 23; creatinine 0.88 RADIATION DOSE: CT Rad equipment meets quality standard of care and radiation dose reduction techniq ues were employed. CTDIvol: 19.0 - 21.1 mGy. DLP: 1980 mGy-cm.. LIMITATIONS: None. FINDINGS: LOWER CHEST: No significant findings. No nodules or infiltrates. LIVER: Normal size. No masses. No dilated ducts. SPLEEN: Normal size. No focal lesions. PANCREAS: Moderate fatty atrophy. GALLBLADDER: No identified stones by CT criteria. No inflammatory changes to suggest cholecystitis. ADRENAL GLANDS: No significant masses or asymmetry. RIGHT KIDNEY AND URETER: No solid masses. No significant calcification. No hydronephrosis or hydroure ter. LEFT KIDNEY AND URETER: No solid masses. No significant calcification. No hydronephrosis or hydrouret er. AORTA AND VESSELS: No aneurysm. No dissection. Renal arteries, SMA, celiac without stenosis. RETROPERITONEUM: No retroperitoneal adenopathy, hemorrhage or masses. BOWEL AND PERITONEAL CAVITY: There is a short segment of transverse colon with subtle wall thickening and adjacent inflammatory stranding (axial image 38). Numerous diverticula are present off the desc ending and sigmoid colon without adjacent findings for diverticulitis. No evidence for small bowel o bstruction. No intra-abdominal free fluid, free air, or lymphadenopathy. APPENDIX: Not visualized. PELVIS: No mass. No free fluid. Normal bladder. ABDOMINAL WALL: No masses. No hernias. BONES: Moderate degenerative changes are present in the lumbar spine with posterior fusion rods. Spi nal cord stimulator in place. Bilateral hip prostheses are noted. OTHER: No other significant finding. IMPRESSION: Findings suggesting colitis of the transverse colon which may be infectious, inflammator y, or ischemic. Sigmoid diverticulosis without CT evidence for diverticulitis. TECHNICAL DOCUMENTATION: JOB ID: [id number] Quality ID # [id number]: Final reports with documentation of one or more dose reduction techniques (e.g., Au tomated exposure control, adjustment of the mA and/or kV according to patient size, use of iterative reconstruction technique) 2010 [employer]- All Rights Reserved Reading location - IP/workstation name: [email or web address]
[2020-07-31] MEDS ORDERED: PIPERACILLIN/TAZOBACTAM 3.375 GM VIAL IV ONE (16:29)
[2020-07-31] MEDS ORDERED: HYDROMORPHONE HCL INJ/PF 2 MG/ML AMPULE IV ONE (16:38)
[2020-07-31] MEDS ORDERED: MAG HYDROX/AL HYDROX/SIMETH SUSP 30 ML UDCUP PO PRN (17:25)
[2020-07-31] MEDS ORDERED: ACETAMINOPHEN 325 MG TABLET PO PRN (17:25)
[2020-07-31] MEDS ORDERED: ALBUTEROL SULFATE 0.083% NEB 2.5 MG/3 ML AMPUL NEB PRN (17:25)
[2020-07-31] MEDS ORDERED: METOPROLOL TARTRATE PF/INJ 5 MG/5 ML SDV IV PRN (17:53)
--- NOTE | 2020-07-31 17:54 | PDOC H&P ---
History of Present Illness Admission Date/PCP: 07/31/20 16:56 WESTLEY SHINE PA-C Patient complains of: n/v/d x6 days History of Present Illness: ALANNA JIMENEZ is a 74 year old female with a past medical history significant for hypertension, hyperlipidemia morbid obesity, and opiate dependent chronic pain who presented to the emergency department for nausea, vomiting, diarrhea x6 days despite care provided by her PCP (including IV fluids, promethazine, Zofran ). Patient states she is unable to tolerate p.o. fluids which is what prompted her to seek additional care at her PCP; she was subsequently referred to the emergency department. Evaluation emergency department revealed hypertension but otherwise stable vital signs, leukocytosis (WBC is 13.6), mild dehydration (sodium 136, potassium 3.2, chloride 97, BUN 23, urine specific gravity 1.025). Urinalysis was otherwise unremarkable. Abdominal x-ray Abdominal/pelvic CT revealed transverse colitis and diverticulosis without diverticulitis. She was provided IV fluids, antiemetics, analgesics, and Zosyn. She is referred to the hospitalist service for further evaluation management of the above-stated complaints findings. Past Medical History Cardiac Medical History: Reports: Hyperlipidema, Hypertension Denies: Coronary Artery Disease, Myocardial Infarction Pulmonary Medical History: Reports: Asthma Denies: Bronchitis, Chronic Obstructive Pulmonary Disease (COPD), Pneumonia Neurological Medical History: Denies: Seizures Endocrine Medical History: Reports: Obesity Denies: Diabetes Mellitus Type 1, Diabetes Mellitus Type 2, Hypothyroidism Renal/ Medical History: Reports: None Malignancy Medical History: Reports: None GI Medical History: Reports: Diverticulitis Musculoskeltal Medical History: Reports: Arthritis Psychiatric Medical History: Reports: Depression Traumatic Medical History: Reports: None Hematology: Denies: Anemia Infectious Medical History: Reports: None Past Surgical History Past Surgical History: Reports: Orthopedic Surgery - BILAT HIP REPLACEMENTS, L2- L4 Social History Information Source: Patient, [facility] Records Lives with: Spouse/Significant other Smoking Status: Never Smoker Electronic Cigarette use?: No Frequency of Alcohol Use: None Hx Recreational Drug Use: No Drugs: None Hx Prescription Drug Abuse: No - Advance Directive Resuscitation Status: Full Code Family History Family History: Hypertension Parental Family History Reviewed: Yes Children Family History Reviewed: Yes Sibling(s) Family History Reviewed.: Yes Medication/Allergy Home Medications: Atorvastatin Calcium [Lipitor 20 mg Tablet] 40 mg PO QHS 02/28/14 Hydromorphone HCl [Dilaudid 2 mg Tablet] 8 mg PO TID PRN 02/27/16 Sennosides/Docusate 8.6-50 mg [Senna Plus Tablet] 2 each PO BID #60 tablet 03/02/16 Lubiprostone [Amitiza 24 Mcg Capsule] 1 tab PO DAILY 12/06/17 Multivitamin [Multivitamins] 1 each PO DAILY 12/06/17 Lisinopril/Hydrochlorothiazide [Lisinopril-Hctz 20-25 mg Tab] 1 each PO DAILY 02/15/18 Zolpidem Tartrate [Ambien] 10 mg PO QHS 02/15/18 Cephalexin Monohydrate [Keflex 500 mg Capsule] 500 mg PO Q6H 7 Days capsule 03/26/18 Clotrimazole 1 applic TP DAILY #1 cream.gm. 03/30/18 Ondansetron [Zofran Odt 4 mg Tablet] 1 tab PO Q4H PRN #10 tab.rapdis 07/24/18 Prochlorperazine Maleate [Compazine 25 Mg Supp.Rect] 25 mg HI TID PRN #6 supp.rect 11/25/18 Nitrofurantoin Macrocrystal [Macrodantin] 100 mg PO BID #20 capsule 12/12/18 Prochlorperazine Maleate [Compazine 10 mg Tablet] 10 mg PO ASDIR PRN #20 tablet 10/06/19 Allergies/Adverse Reactions: chlordiazepoxide HCl [From Librium] Allergy (Severe, Verified 10/06/19 11:23) diazepam [From Valium] Allergy (Severe, Verified 10/06/19 11:23) manic, increased b/p NSAIDS (Non-Steroidal Anti-Inflamma [Nsaids] Allergy (Severe, Verified 10/06/19 11:23) ulcers clavulanic acid [From Augmentin] Allergy (Verified 10/06/19 11:23) Review of Systems Constitutional: PRESENT: fatigue. ABSENT: chills, fever(s), headache(s), weight gain, weight loss Eyes: ABSENT: visual disturbances Ears: ABSENT: hearing changes Cardiovascular: ABSENT: chest pain, dyspnea on exertion, edema, orthropnea, palpitations Respiratory: ABSENT: cough, hemoptysis Gastrointestinal: PRESENT: diarrhea, nausea, vomiting. ABSENT: abdominal pain, constipation, hematemesis, hematochezia Genitourinary: ABSENT: dysuria, hematuria Musculoskeletal: ABSENT: joint swelling Integumentary: ABSENT: rash, wounds Neurological: ABSENT: abnormal gait, abnormal speech, confusion, dizziness, focal weakness, syncope Psychiatric: ABSENT: anxiety, depression, homidical ideation, suicidal ideation Endocrine: ABSENT: cold intolerance, heat intolerance, polydipsia, polyuria Hematologic/Lymphatic: ABSENT: easy bleeding, easy bruising Physical Exam Vital Signs: Temp Pulse Resp BP Pulse Ox 98.6 F 88 20 154/82 H 96 07/31/20 17:20 07/31/20 17:20 07/31/20 17:20 07/31/20 17:20 07/31/20 17:20 Intake & Output 07/30/20 07/31/20 08/01/20 06:59 06:59 06:59 Intake Total 1000 Balance 1000 Weight 92.986 kg General appearance: PRESENT: no acute distress, disheveled, morbidly obese, well-developed, well-nourished Head exam: PRESENT: atraumatic, normocephalic Eye exam: PRESENT: conjunctiva pink, EOMI, PERRLA. ABSENT: scleral icterus Mouth exam: PRESENT: dry mucosa, tongue midline Respiratory exam: PRESENT: clear to auscultation sara, symmetrical, unlabored, other - Room air. ABSENT: rales, rhonchi, wheezes Cardiovascular exam: PRESENT: RRR. ABSENT: diastolic murmur, rubs, systolic murmur Pulses: PRESENT: normal dorsalis pedis pul Vascular exam: PRESENT: normal capillary refill GI/Abdominal exam: PRESENT: hypoactive bowel sounds, soft, tenderness. ABSENT: distended, guarding, mass, organolmegaly, rebound Rectal exam: PRESENT: deferred Extremities exam: PRESENT: full ROM. ABSENT: calf tenderness, clubbing, pedal edema Musculoskeletal exam: PRESENT: ambulatory Neurological exam: PRESENT: alert, awake, oriented to person, oriented to place, oriented to time, oriented to situation, CN II-XII grossly intact. ABSENT: motor sensory deficit Psychiatric exam: PRESENT: appropriate affect, normal mood. ABSENT: homicidal ideation, suicidal ideation Skin exam: PRESENT: dry, intact, warm. ABSENT: cyanosis, rash Results Laboratory Results: 07/31/20 12:44 07/31/20 12:44 07/31/20 07/31/20 07/31/20 12:30 12:44 12:44 WBC 13.6 H RBC 5.00 Hgb 15.3 Hct 44.9 MCV 90 MCH 30.7 MCHC 34.1 RDW 15.3 H Plt Count 229 Seg Neutrophils % 78.2 H Sodium 136.6 L Potassium 3.2 L Chloride 97 L Carbon Dioxide 27 Anion Gap 13 BUN 23 H Creatinine 0.88 Est GFR ( Amer) > 60 Glucose 129 H Calcium 9.7 Total Bilirubin 0.8 AST 53 H Alkaline Phosphatase 85 Total Protein 7.2 Albumin 4.5 Urine Color GEOVANNA Urine Appearance CLOUDY Urine pH 6.0 Ur Specific [place] 1.025 Urine Protein 30 H Urine Glucose (UA) NEGATIVE Urine Ketones NEGATIVE Urine Blood NEGATIVE Urine RBC (Auto) 14 Impressions: Abdomen X-Ray 07/31/20 10:47 IMPRESSION: NO RADIOGRAPHIC EVIDENCE FOR ACUTE ABDOMINAL DISEASE. Abdomen/Pelvis CT 07/31/20 14:57 IMPRESSION: Findings suggesting colitis of the transverse colon which may be infectious, inflammatory, or ischemic. Sigmoid diverticulosis without CT evidence for diverticulitis. Assessment and Plan - Diagnosis (1) Colitis Is this a current diagnosis for this admission?: Yes Plan: CT abdomen/pelvis revealed transverse colitis. Patient has been to the medical floor. Treatment provided generous IV fluids. Empirically placed on IV Zosyn. Antiemetics and analgesics as needed. Blood and stool cultures pending. (2) Dehydration Is this a current diagnosis for this admission?: Yes Plan: Secondary to colitis and associated GI loses/poor oral intake. Continue IVF Antiemetics as needed. Remaining management as above. (3) Hypokalemia Is this a current diagnosis for this admission?: Yes Plan: Secondary to #1. IV potassium replacement. Follow-up chemistry. (4) Nausea vomiting and diarrhea Is this a current diagnosis for this admission?: Yes Plan: Secondary #1. Evaluation and management as above. (5) Hypertension Is this a current diagnosis for this admission?: Yes Plan: We will resume home antihypertensive therapy once reconciled. IV Lopressor as needed. (6) Opiate dependence, continuous Is this a current diagnosis for this admission?: Yes Plan: Opiate dependent chronic pain. Patient states she is followed by pain management clinic; cannot recall her prescription information at this time. Provided IV Dilaudid as needed for abdominal pain. We will resume her home dose medications once reconciled and tolerating oral intake. - Time Time Spent with patient: 35 or more minutes Medications reviewed and adjusted accordingly: Yes Anticipated Discharge Disposition: Home, Self Care Anticipated Discharge Timeframe: within 48 hours
[2020-07-31] MEDS: POTASSI CL 20 MEQ/50 ML RIDER 20 MEQ/50 ML RTUPB IV SCH ×2 (19:00→22:00)
[2020-07-31] MEDS: NORMAL SALINE 1000 ML 1,000 ML IV PRN (19:00)
[2020-07-31] MEDS: HYDROMORPHONE HCL INJ/PF 2 MG/ML AMPULE IV PRN (21:05)
[2020-08-01] MEDS: NORMAL SALINE 1000 ML 1,000 ML IV PRN ×3 (03:15→18:36)
[2020-08-01] MEDS: HYDROMORPHONE HCL INJ/PF 2 MG/ML AMPULE IV PRN (04:01)
[2020-08-01 06:53] LABS: HEMATOCRIT 37.6 % (36.0-47.0); MEAN CORPUSCULAR HEMOGLOBIN 30.7 pg (27.0-33.4); MEAN CORPUSCULAR HGB CONC 34.1 g/dL (32.0-36.0); MEAN CORPUSCULAR VOLUME 90 fl (80-97); PLATELET COUNT 172 10^3/uL (150-450); RED BLOOD COUNT 4.19 10^6/uL (3.72-5.28); RED CELL DISTRIBUTION WIDTH 15.3 % (11.5-14.0)
[2020-08-01 07:22] LABS: ALBUMIN 3.4 g/dL (3.5-5.0); ALKALINE PHOSPHATASE 69 U/L (38-126); ANION GAP 9 (5-19); ASPARTATE AMINO TRANSFERASE 48 U/L (14-36); BILIRUBIN,DIRECT 0.3 mg/dL (0.0-0.4); BILIRUBIN,TOTAL 0.8 mg/dL (0.2-1.3); BLOOD UREA NITROGEN 18 mg/dL (7-20); CALCIUM 8.4 mg/dL (8.4-10.2); CARBON DIOXIDE 23 mmol/L (22-30); CHLORIDE 103 mmol/L (98-107); GLUCOSE 93 mg/dL (75-110); PHOSPHORUS 2.7 mg/dL (2.5-4.5); POTASSIUM 3.3 mmol/L (3.6-5.0); TOTAL PROTEIN 5.5 g/dL (6.3-8.2)
[2020-08-01 07:30] LABS: HEMOGLOBIN 12.9 g/dL (12.0-15.5)
[2020-08-01] MEDS ORDERED: INFLUENZA QUAD (6MOS+) 2020-21 VAC 0.5 ML SYR IM ONE (08:00)
[2020-08-01] MEDS: ENOXAPARIN SODIUM INJ 40 MG/0.4 ML DISP.SYRIN SUBCUT SCH (09:21)
[2020-08-01] MEDS: ONDANSETRON HCL INJ/PF 4 MG/2 ML SDV IV PRN ×3 (10:54→22:54)
[2020-08-01] MEDS ORDERED: TRAZODONE HCL 50 MG TABLET PO PRN (11:07)
[2020-08-01] MEDS ORDERED: (PENDING PHARMACY ID) (Oxycodone Hcl/Acetaminophen [Percocet 10-325 Mg Tablet] 1 TAB) PO PRN (11:07)
[2020-08-01] MEDS ORDERED: OXYCODONE-ACETAMINOPHEN 5-325 MG TABLET PO PRN (11:10)
[2020-08-01] MEDS ORDERED: OXYCODONE HCL IR 5 MG TABLET PO PRN (11:11)
[2020-08-01] MEDS: LISINOPRIL 10 MG TABLET PO SCH (11:58)
[2020-08-01] MEDS: HYDROCHLOROTHIAZIDE 25 MG TABLET PO SCH (11:59)
[2020-08-01] MEDS: AMOXICILLIN TRIHYDRATE 500 MG CAPSULE PO SCH ×2 (13:42→21:07)
[2020-08-01] MEDS: PROMETHAZINE HCL INJ 25 MG/1 ML VIAL IV PRN ×3 (14:19→23:48)
--- NOTE | 2020-08-01 16:32 | PDOC PROGRESS REPORT ---
Subjective Progress Note for:: 08/01/20 Subjective:: ALANNA JIMENEZ is a 74 year old female with a past medical history significant for hypertension, hyperlipidemia morbid obesity, and opiate dependent chronic pain who was admitted 07/31/2020 with transverse colitis. Patient was seen in morning rounds. She is found resting in bed, comfortably, on room air. She reports that her abdominal pain has resolved. No episodes of diarrhea overnight. She has had some nausea but without emesis and was able to tolerate a few bites of food this morning. Overall, she is feeling significantly better. She does tell me that she is feeling well enough to trial oral medications today (resuming home medications). She denies fever, chills, chest pain, palpitations, dyspnea, 0orthopnea, and cough. She has no other questions or concerns at this time. No concerns per nursing. Reason For Visit: TRANSVERSE COLITIS Physical Exam Vital Signs: Temp Pulse Resp BP Pulse Ox 98.1 F 64 16 172/90 H 98 08/01/20 12:00 08/01/20 12:00 08/01/20 12:00 08/01/20 12:00 08/01/20 12:00 Intake & Output 07/31/20 08/01/20 08/02/20 06:59 06:59 06:59 Intake Total 2100 1060 Output Total 250 Balance 1850 1060 Weight 96 kg General appearance: PRESENT: no acute distress, cooperative, morbidly obese, well-developed, well-nourished Head exam: PRESENT: atraumatic, normocephalic Eye exam: PRESENT: conjunctiva pink, EOMI, PERRLA. ABSENT: scleral icterus Mouth exam: PRESENT: moist, tongue midline Respiratory exam: PRESENT: clear to auscultation sara, symmetrical, unlabored, other - room air. ABSENT: rales, rhonchi, wheezes Cardiovascular exam: PRESENT: RRR, +S1, +S2. ABSENT: diastolic murmur, rubs, systolic murmur Vascular exam: PRESENT: normal capillary refill GI/Abdominal exam: PRESENT: hyperactive bowel sounds, soft. ABSENT: distended, guarding, mass, organolmegaly, rebound, tenderness Rectal exam: PRESENT: deferred Extremities exam: PRESENT: full ROM. ABSENT: calf tenderness, clubbing, pedal edema Musculoskeletal exam: PRESENT: ambulatory Neurological exam: PRESENT: alert, awake, oriented to person, oriented to place, oriented to time, oriented to situation, CN II-XII grossly intact. ABSENT: motor sensory deficit Psychiatric exam: PRESENT: appropriate affect, normal mood. ABSENT: homicidal ideation, suicidal ideation Skin exam: PRESENT: dry, intact, warm. ABSENT: cyanosis, rash Results Laboratory Results: 08/01/20 05:52 08/01/20 05:52 08/01/20 08/01/20 05:52 05:52 WBC 10.0 RBC 4.19 Hgb 12.9 D Hct 37.6 MCV 90 MCH 30.7 MCHC 34.1 RDW 15.3 H Plt Count 172 Sodium 134.6 L Potassium 3.3 L Chloride 103 Carbon Dioxide 23 Anion Gap 9 BUN 18 Creatinine 0.72 Est GFR ( Amer) > 60 Glucose 93 Calcium 8.4 Phosphorus 2.7 Magnesium 2.0 Total Bilirubin 0.8 AST 48 H Alkaline Phosphatase 69 Total Protein 5.5 L Albumin 3.4 L Impressions: Abdomen X-Ray 07/31/20 10:47 IMPRESSION: NO RADIOGRAPHIC EVIDENCE FOR ACUTE ABDOMINAL DISEASE. Abdomen/Pelvis CT 07/31/20 14:57 IMPRESSION: Findings suggesting colitis of the transverse colon which may be infectious, inflammatory, or ischemic. Sigmoid diverticulosis without CT evidence for diverticulitis. Assessment and Plan - Diagnosis (1) Colitis Is this a current diagnosis for this admission?: Yes Plan: Improved; decreased abd pain, n/v/d, leukocytosis has resolved. CT abdomen/pelvis revealed transverse colitis. Blood cultures pending Stool cultures not yet obtained Patient has been to the medical floor. Treatment provided generous IV fluids. Empirically placed on IV Zosyn; transition to po Augmentin. Antiemetics and analgesics as needed. Brat diet. (2) Dehydration Is this a current diagnosis for this admission?: Yes Plan: Secondary to colitis and associated GI loses/poor oral intake. Continue IVF Antiemetics as needed. Remaining management as above. (3) Hypokalemia Is this a current diagnosis for this admission?: Yes Plan: Secondary to #1. Oral potassium replacement. Follow-up chemistry. (4) Nausea vomiting and diarrhea Is this a current diagnosis for this admission?: Yes Plan: Improved Secondary #1. Evaluation and management as above. (5) Hypertension Is this a current diagnosis for this admission?: Yes Plan: Resume home dose lisinopril/hctz Consider start of amlodipine and/or carvedilol if she remains hypotensive. IV Lopressor as needed. (6) Opiate dependence, continuous Is this a current diagnosis for this admission?: Yes Plan: Opiate dependent chronic pain. Patient states she is followed by pain management clinic Resume home dose Percocet. - Time Time Spent with patient: 25-34 minutes Medications reviewed and adjusted accordingly: Yes Anticipated Discharge Disposition: Home, Self Care Anticipated Discharge Timeframe: within 24 hours
[2020-08-01] MEDS ORDERED: POTASSIUM CHLORIDE 10 MEQ TABLET.ER PO ONE (18:00)
[2020-08-01] MEDS ORDERED: FERUMOXYTOL (NESRD) 510 MG/17 ML VIAL IV ONE (18:09)
[2020-08-01] MEDS ORDERED: AMLODIPINE BESYLATE 5 MG TABLET PO ONE (19:45)
[2020-08-01] MEDS ORDERED: ATORVASTATIN CALCIUM 20 MG TABLET PO SCH (22:00)
[2020-08-02] MEDS: NORMAL SALINE 1000 ML 1,000 ML IV PRN (03:37)
[2020-08-02] MEDS: AMOXICILLIN TRIHYDRATE 500 MG CAPSULE PO SCH ×2 (05:13→15:39)
[2020-08-02 07:03] LABS: HEMATOCRIT 39.7 % (36.0-47.0); HEMOGLOBIN 13.5 g/dL (12.0-15.5); MEAN CORPUSCULAR HEMOGLOBIN 30.5 pg (27.0-33.4); MEAN CORPUSCULAR HGB CONC 33.9 g/dL (32.0-36.0); MEAN CORPUSCULAR VOLUME 90 fl (80-97); PLATELET COUNT 136 10^3/uL (150-450); RED CELL DISTRIBUTION WIDTH 15.2 % (11.5-14.0); WHITE BLOOD COUNT 8.5 10^3/uL (4.0-10.5)
[2020-08-02 07:25] LABS: ANION GAP 12 (5-19); BLOOD UREA NITROGEN 12 mg/dL (7-20); CALCIUM 8.9 mg/dL (8.4-10.2); CARBON DIOXIDE 23 mmol/L (22-30); CHLORIDE 100 mmol/L (98-107); GLUCOSE 103 mg/dL (75-110); POTASSIUM 3.2 mmol/L (3.6-5.0)
[2020-08-02] MEDS: PROMETHAZINE HCL INJ 25 MG/1 ML VIAL IV PRN ×2 (07:47→15:43)
[2020-08-02] MEDS ORDERED: ONDANSETRON 4 MG TAB.RAPDIS PO PRN (07:53)
[2020-08-02] MEDS: HYDROCHLOROTHIAZIDE 25 MG TABLET PO SCH (07:54)
[2020-08-02] MEDS: LISINOPRIL 10 MG TABLET PO SCH (07:55)
[2020-08-02] MEDS ORDERED: (PENDING PHARMACY ID) (Lisinopril/Hydrochlorothiazide [Lisinopril-Hctz 20-25 Mg Tab] 1 EAC PO SCH (08:00)
[2020-08-02] MEDS ORDERED: AMLODIPINE BESYLATE 10 MG TABLET PO SCH (10:00)
[2020-08-02] MEDS ORDERED: POTASSIUM CHLORIDE 10 MEQ TABLET.ER PO SCH ×2 (10:00)
[2020-08-02] MEDS: ENOXAPARIN SODIUM INJ 40 MG/0.4 ML DISP.SYRIN SUBCUT SCH (11:20)
[2020-08-02] MEDS ORDERED: LISINOPRIL 10 MG TABLET PO ONE (13:12)
[2020-08-02] MEDS ORDERED: LISINOPRIL 10 MG TABLET ONE (15:37)
[2020-08-02 16:57] VITALS: BP 150/71
--- NOTE | 2020-08-02 17:33 | PDOC DISCHARGE SUMMARY ---
Impression - Admit/DC Date/PCP Admission Date/Primary Care Provider: 07/31/20 16:56 WESTLEY SHINE PA-C Discharge Date: 08/02/20 - Discharge Diagnosis (1) Colitis Is this a current diagnosis for this admission?: Yes (2) Dehydration Is this a current diagnosis for this admission?: Yes (3) Hypokalemia Is this a current diagnosis for this admission?: Yes (4) Nausea vomiting and diarrhea Is this a current diagnosis for this admission?: Yes (5) Hypertension Is this a current diagnosis for this admission?: Yes (6) Opiate dependence, continuous Is this a current diagnosis for this admission?: Yes - Additional Information Resuscitation Status: Full Code Discharge Diet: As Tolerated, Cardiac Discharge Activity: Activity As Tolerated, Balance Activity w/Rest, Slowly Increase Activity Referrals: WESTLEY SHINE PA-C [Primary Care Provider] - Follow up as needed Prescriptions: Ciprofloxacin HCl [Cipro 500 mg Tablet] 500 mg PO BID #20 tablet Metronidazole 500 mg PO Q8 #30 tablet Amlodipine Besylate [Norvasc 10 mg Tablet] 10 mg PO QHS #30 tablet Promethazine HCl [Phenergan 25 mg Tablet] 25 mg PO Q6HP PRN #12 tablet PRN Reason: For Nausea/Vomiting Lisinopril [Zestril] 40 mg PO DAILY #30 tablet Home Medications: Atorvastatin Calcium [Lipitor 20 mg Tablet] 20 mg PO QHS 02/28/14 Lisinopril/Hydrochlorothiazide [Lisinopril-Hctz 20-25 mg Tab] 1 each PO QAM 02/15/18 Cholecalciferol (Vitamin D3) [Vitamin D3 1000 Unit Tablet] 1,000 unit PO DAILY 08/01/20 Oxycodone HCl/Acetaminophen [Percocet 10-325 mg Tablet] 1 tab PO Q4HP PRN MDD 5 TABS PER DAY 08/01/20 Potassium Chloride [Klor-Con M10] 20 meq PO DAILY 08/01/20 Sennosides [Senna] 8.6 mg PO BIDP PRN 08/01/20 Trazodone HCl [Desyrel 50 mg Tablet] 50 mg PO HSP PRN 08/01/20 Acetaminophen [Tylenol 325 mg Tablet] 650 mg PO Q4HP PRN tablet 08/02/20 Amlodipine Besylate [Norvasc 10 mg Tablet] 10 mg PO QHS #30 tablet 08/02/20 Ciprofloxacin HCl [Cipro 500 mg Tablet] 500 mg PO BID #20 tablet 08/02/20 Lisinopril [Zestril] 40 mg PO DAILY #30 tablet 08/02/20 Metronidazole 500 mg PO Q8 #30 tablet 08/02/20 Promethazine HCl [Phenergan 25 mg Tablet] 25 mg PO Q6HP PRN #12 tablet 08/02/20 History of Present Illiness History of Present Illness: ALANNA JIMENEZ is a 74 year old female with a past medical history significant for hypertension, hyperlipidemia morbid obesity, and opiate dependent chronic pain who presented to the emergency department for nausea, vomiting, diarrhea x6 days despite care provided by her PCP (including IV fluids, promethazine, Zofran). Patient states she is unable to tolerate p.o. fluids which is what prompted her to seek additional care at her PCP; she was subsequently referred to the emergency department. Evaluation emergency department revealed hypertension but otherwise stable vital signs, leukocytosis (WBC is 13.6), mild dehydration (sodium 136, potassium 3.2, chloride 97, BUN 23, urine specific gravity 1.025). Urinalysis was otherwise unremarkable. Abdominal x-ray Abdominal/pelvic CT revealed transverse colitis and diverticulosis without diverticulitis. She was provided IV fluids, antiemetics, analgesics, and Zosyn. She is referred to the hospitalist service for further evaluation management of the above-stated complaints findings. Hospital Course Hospital Course: Patient was admitted the medical floor. She was empirically placed on IV Zosyn. Patient has an allergy to Augmentin and so at discharge she is placed on oral Cipro and metronidazole to complete 10 day course. She received generous IV fluids, antiemetics, and analgesics as needed. Her symptoms rapidly improved and she is now tolerating a brat diet, oral medications, and drinking adequate amounts of fluids. Only one loose stool today and no emesis >24 hrs. She is requesting to discharge home. I did meet with her and her this afternoon. We discussed the option of remaining in house for additional IV fluids and recovery time versus going home. The patient demonstrated that she was able to walk approximately 50 feet with front wheel walker. Following this, both patient and expressed their comfort with discharge to home. She is advised to drink plenty of fluids, eat as tolerated, and to complete her full course of antibiotics. She is instructed follow-up with her primary care provider within 1 week and to return to the emergency department, as needed, for concerning symptoms. Physical Exam Vital Signs: Temp Pulse Resp BP Pulse Ox 98.7 F 66 24 H 150/71 H 97 08/02/20 16:17 08/02/20 16:17 08/02/20 16:17 08/02/20 16:17 08/02/20 16:17 Intake & Output 08/01/20 08/02/20 08/03/20 06:59 06:59 06:59 Intake Total 2100 3238 1236 Output Total 250 750 900 Balance 1850 2488 336 Weight 96 kg 99.8 kg General appearance: PRESENT: no acute distress, cooperative, morbidly obese, well-developed, well-nourished Head exam: PRESENT: atraumatic, normocephalic Eye exam: PRESENT: conjunctiva pink, EOMI, PERRLA. ABSENT: scleral icterus Mouth exam: PRESENT: moist, tongue midline Respiratory exam: PRESENT: clear to auscultation sara, symmetrical, unlabored. ABSENT: rales, rhonchi, wheezes Cardiovascular exam: PRESENT: RRR. ABSENT: diastolic murmur, rubs, systolic murmur Vascular exam: PRESENT: normal capillary refill GI/Abdominal exam: PRESENT: normal bowel sounds, soft. ABSENT: distended, guarding, mass, organolmegaly, rebound, tenderness Rectal exam: PRESENT: deferred Extremities exam: PRESENT: full ROM. ABSENT: calf tenderness, clubbing, pedal edema Musculoskeletal exam: PRESENT: ambulatory - w/ FWW ~50' Neurological exam: PRESENT: alert, awake, oriented to person, oriented to place, oriented to time, oriented to situation, CN II-XII grossly intact. ABSENT: motor sensory deficit Psychiatric exam: PRESENT: appropriate affect, normal mood. ABSENT: homicidal ideation, suicidal ideation Skin exam: PRESENT: dry, intact, warm. ABSENT: cyanosis, rash Results Laboratory Results: WBC 8.5 10^3/uL (4.0-10.5) 08/02/20 06:19 RBC 4.40 10^6/uL (3.72-5.28) 08/02/20 06:19 Hgb 13.5 g/dL (12.0-15.5) 08/02/20 06:19 Hct 39.7 % (36.0-47.0) 08/02/20 06:19 MCV 90 fl (80-97) 08/02/20 06:19 MCH 30.5 pg (27.0-33.4) 08/02/20 06:19 MCHC 33.9 g/dL (32.0-36.0) 08/02/20 06:19 RDW 15.2 % (11.5-14.0) H 08/02/20 06:19 Plt Count 136 10^3/uL (150-450) L 08/02/20 06:19 Lymph % (Auto) 15.4 % (13-45) 07/31/20 12:44 [place] % (Auto) 6.0 % (3-13) 07/31/20 12:44 Eos % (Auto) 0.1 % (0-6) 07/31/20 12:44 Baso % (Auto) 0.3 % (0-2) 07/31/20 12:44 Absolute Neuts (auto) 10.6 10^3/uL (1.7-8.2) H 07/31/20 12:44 Absolute Lymphs (auto) 2.1 10^3/uL (0.5-4.7) 07/31/20 12:44 Absolute Monos (auto) 0.8 10^3/uL (0.1-1.4) 07/31/20 12:44 Absolute Eos (auto) 0.0 10^3/uL (0.0-0.6) 07/31/20 12:44 Absolute Basos (auto) 0.0 10^3/uL (0.0-0.2) 07/31/20 12:44 Seg Neutrophils % 78.2 % (42-78) H 07/31/20 12:44 Sodium 134.8 mmol/L (137-145) L 08/02/20 06:19 Potassium 3.2 mmol/L (3.6-5.0) L 08/02/20 06:19 Chloride 100 mmol/L (98-107) 08/02/20 06:19 Carbon Dioxide 23 mmol/L (22-30) 08/02/20 06:19 Anion Gap 12 (5-19) 08/02/20 06:19 BUN 12 mg/dL (7-20) 08/02/20 06:19 Creatinine 0.59 mg/dL (0.52-1.25) 08/02/20 06:19 Est GFR ( Amer) > 60 (>60) 08/02/20 06:19 Est GFR (MDRD) Non-Af > 60 (>60) 08/02/20 06:19 Glucose 103 mg/dL (75-110) 08/02/20 06:19 Calcium 8.9 mg/dL (8.4-10.2) 08/02/20 06:19 Phosphorus 2.7 mg/dL (2.5-4.5) 08/01/20 05:52 Magnesium 2.0 mg/dL (1.6-2.3) 08/01/20 05:52 Total Bilirubin 0.8 mg/dL (0.2-1.3) 08/01/20 05:52 Direct Bilirubin 0.3 mg/dL (0.0-0.4) 08/01/20 05:52 Neonat Total Bilirubin Not Reportable 08/01/20 05:52 Neonat Direct Bilirubin Not Reportable 08/01/20 05:52 Neonat Indirect Bili Not Reportable 08/01/20 05:52 AST 48 U/L (14-36) H 08/01/20 05:52 ALT 45 U/L (<35) H 08/01/20 05:52 Alkaline Phosphatase 69 U/L (38-126) 08/01/20 05:52 Total Protein 5.5 g/dL (6.3-8.2) L 08/01/20 05:52 Albumin 3.4 g/dL (3.5-5.0) L 08/01/20 05:52 Urine Color GEOVANNA 07/31/20 12:30 Urine Appearance CLOUDY 07/31/20 12:30 Urine pH 6.0 (5.0-9.0) 07/31/20 12:30 Ur Specific [place] 1.025 07/31/20 12:30 Urine Protein 30 mg/dL (NEGATIVE) H 07/31/20 12:30 Urine Glucose (UA) NEGATIVE mg/dL (NEGATIVE) 07/31/20 12:30 Urine Ketones NEGATIVE mg/dL (NEGATIVE) 07/31/20 12:30 Urine Blood NEGATIVE (NEGATIVE) 07/31/20 12:30 Urine Nitrite (Reflex) NEGATIVE (NEGATIVE) 07/31/20 12:30 Urine Bilirubin NEGATIVE (NEGATIVE) 07/31/20 12:30 Urine Urobilinogen NEGATIVE mg/dL (<2.0) 07/31/20 12:30 Leukocyte Esterase Rfl LARGE (NEGATIVE) H 07/31/20 12:30 Urine RBC (Auto) 14 /HPF 07/31/20 12:30 U Hyaline Cast (Auto) 8 /LPF 07/31/20 12:30 Urine Bacteria (Auto) TRACE /HPF 07/31/20 12:30 Urine WBC (Reflex) 19 /HPF 07/31/20 12:30 Squamous Epi Cells Auto 9 /HPF 07/31/20 12:30 Urine Mucus (Auto) FEW /LPF 07/31/20 12:30 Urine Ascorbic Acid 20 (NEGATIVE) H 07/31/20 12:30 Impressions: Abdomen X-Ray 07/31/20 10:47 IMPRESSION: NO RADIOGRAPHIC EVIDENCE FOR ACUTE ABDOMINAL DISEASE. Abdomen/Pelvis CT 07/31/20 14:57 IMPRESSION: Findings suggesting colitis of the transverse colon which may be infectious, inflammatory, or ischemic. Sigmoid diverticulosis without CT evidence for diverticulitis. Plan Plan of Treatment: Patient is discharged home, in stable condition, into the care of family members. She is advised follow-up with her primary care provider within 1 week. Complete course of antibiotic therapy. She is instructed to stay hydrated; drink fluids and eat foods known to have high water content (soup, Jell-O, popsicles). Eat as tolerated. She is instructed to avoid alcohol intake. She is encouraged to return to emergency department, as needed, for concerning symptoms. Time Spent: Greater than 30 Minutes Stroke Is this a Stroke Patient?: No Acute Heart Failure Is this a Heart Failure Patient?: No
[2020-08-02] MEDS ORDERED: CIPROFLOXACIN HCL 500 MG TABLET PO SCH (22:00)
[2020-08-02] MEDS ORDERED: METRONIDAZOLE 500 MG TABLET PO SCH (22:00)
[2020-08-03] MEDS ORDERED: LISINOPRIL 10 MG TABLET PO SCH (08:00)
== END 2020-08-02 18:35 | disposition home or self-care (01) ==
LOC: ER 09:52 → EH 16:56 → 4S 18:12
PROVIDERS: ADMIT Internal Medicine; ATTEND Registered Nurse
DX: K52.89 Other specified noninfective gastroenteritis and colitis (principal); E86.0 Dehydration; E87.6 Hypokalemia; R11.2 Nausea with vomiting, unspecified; R19.7 Diarrhea, unspecified; I10 Essential (primary) hypertension; G89.29 Other chronic pain; E78.5 Hyperlipidemia, unspecified; K57.30 Diverticulosis of large intestine without perforation or abscess without bleeding; F11.20 Opioid dependence, uncomplicated; E66.01 Morbid (severe) obesity due to excess calories; M19.90 Unspecified osteoarthritis, unspecified site; Z23 Encounter for immunization; Z79.899 Other long term (current) drug therapy; Z88.0 Allergy status to penicillin; Z96.643 Presence of artificial hip joint, bilateral; Z87.442 Personal history of urinary calculi
CPT/HCPCS: 99285; 96361; 96374; 36415 ×3; 87040; 83735; 84100; 85025; 85027 ×2; 80048; 80053 ×2; 81001; 74019; 74177; 90686; G0378 ×3; G0008; A9270 ×14; J3490; J1650; J1170 ×2; J2550 ×2; J2405 ×2; J3480; J7030 ×3; J2543; 90471; S0119